=== PATIENT | male | born 1960 | race Caucasian/White ===

== ENCOUNTER 2016-09-02 14:25 | Inpatient (IN) | payer OTHER ==
[2016-09-02] VITALS (7 sets, daily range): BP systolic 171–196; BP diastolic 91–106; PULSE 77–90; RESP 18–20; TEMP 98.8–99.7; O2SAT 97–99
[~2016-09-02] VITALS: Ht 185.4 cm; Wt 88.2 kg
--- NOTE | 2016-09-02 14:36 | PD ---
Physical Exam Time Seen by Provider: 14:33 Narrative 55 y/o male presents with epigastric abdominal pain, nausea/vomiting for 2 days. He ate at [employer] last night and thought that he had food poisoning. He endorses slight left sided cp as well. seen by pcp today. He had an ekg and he was referred here. Denies sob. vss. Seen at triage desk. Awaiting bed placement. Data Data Last Documented VS Vital Signs Date Time Temp Pulse Resp B/P Pulse Ox O2 Delivery O2 Flow Rate FiO2 09/02/16 14:27 98.8 90 20 171/101 99 Room Air Orders Electrocardiogram (09/02/16 ) [facility] Medical Record Reviewed: Yes Supervised Visit with ANDERS: No Alan Choi September 02, 2016 14:36
--- NOTE | 2016-09-02 16:45 | PD ---
HPI Chief Complaint: Abnormal Results Time Seen by Provider: 16:45 Travel History International Travel<30 days: No Contact w/Intl Traveler<30days: No Traveled to known affect area: No History of Present Illness HPI 55-year-old male came to the emergency room with history of epigastric pain since 2 days. Patient has been vomiting. His last vomit was last night. Since then this morning he woke up and drank some kati bhumi and ate some breakfast although he is been unable to keep that down and has been constant nausea. No history of diarrhea. He pointed to his gastric area regarding the pain and right upper quadrant. Patient says he's never had pain like this in the past. Patient has been hypertensive and could be related to his pain. [facility] Past Medical History Narrative Medical List of his past medical, surgical, social and family history is reviewed from the nursing note. Diabetes: Yes Social History Tobacco Use: No Allergies-Medications (Allergen,Severity, Reaction): Coded Allergies: No Known Allergies (Unverified , 09/02/16) Comments No known drug allergies. Reported Meds & Prescriptions Reported Meds & Active Scripts Active Reported Omeprazole 40 Mg Cap 40 Mg PO DAILY Metformin (Metformin HCl) 500 Mg Tab 500 Mg PO BIDPC With meals Lisinopril 20 Mg Tab 20 Mg PO DAILY Amlodipine (Amlodipine Besylate) 5 Mg Tab 5 Mg PO DAILY Allopurinol 300 Mg Tab 300 Mg PO DAILY Narrative Medication List of his medications reviewed from the nursing note. Review of Systems Except as stated in HPI: all other systems reviewed are Neg Physical Exam Narrative GENERAL: Awake, alert, mild distress, anxious SKIN: Focused skin assessment warm/dry. HEAD: Atraumatic. Normocephalic. EYES: Pupils equal and round. No scleral icterus. No injection or drainage. ENT: No nasal bleeding or discharge. Mucous membranes pink and moist. NECK: Trachea midline. No JVD. CARDIOVASCULAR: Regular rate and rhythm. No murmur appreciated. RESPIRATORY: No accessory muscle use. Clear to auscultation. Breath sounds equal bilaterally. GASTROINTESTINAL: Right upper quadrant tenderness, nondistended. Hepatic and splenic margins not palpable. MUSCULOSKELETAL: No obvious deformities. No clubbing. No cyanosis. No edema. NEUROLOGICAL: Awake and alert. No obvious cranial nerve deficits. Motor grossly within normal limits. Normal speech. PSYCHIATRIC: Appropriate mood and affect; insight and judgment normal. Data Data Last Documented VS Vital Signs Date Time Temp Pulse Resp B/P Pulse Ox O2 Delivery O2 Flow Rate FiO2 09/02/16 18:49 80 18 189/91 99 Room Air 09/02/16 14:27 98.8 Orders Electrocardiogram (09/02/16 ) Complete Blood Count With Diff (09/02/16 16:52) Comprehensive Metabolic Panel (09/02/16 16:52) Lipase (09/02/16 16:52) Prothrombin Time / Inr (Pt) (09/02/16 16:52) Urinalysis - C+S If Indicated (09/02/16 16:52) Iv Access Insert/Monitor (09/02/16 16:52) Ecg Monitoring (09/02/16 16:52) Oximetry (09/02/16 16:52) Morphine Inj (Morphine Inj) (09/02/16 17:00) Ondansetron Inj (Zofran Inj) (09/02/16 17:00) Sodium Chlor 0.9% 1000 Ml Inj (Ns 1000 M (09/02/16 16:52) Sodium Chloride 0.9% Flush (Ns Flush) (09/02/16 17:00) Ed Poc Ultrasound (09/02/16 16:52) Troponin I (09/02/16 16:52) Us Abdomen Gallbladder (09/02/16 ) Piperacil-Tazo 3.375 Gm Premix (Zosyn 3. (09/02/16 19:15) Admit Order (Ed Use Only) (09/02/16 19:15) Allopurinol (Zyloprim) (09/03/16 09:00) Amlodipine (Norvasc) (09/03/16 09:00) Lisinopril (Prinivil) (09/03/16 09:00) Pantoprazole (Protonix) (09/03/16 09:00) Bedside Glucose SHAHEED.AC&HS (09/02/16 19:20) Blood Glucose Goal (Criteria) (09/02/16 19:20) Hypoglycemia 51 - 69 Mg/Dl (09/02/16 19:20) Hypoglycemia 50 Mg/Dl Or < (09/02/16 19:20) Notify Dr: Other (09/02/16 19:20) Dextrose 50% In Maria Antonia (Vial) Inj (D50w (Vi (09/02/16 19:30) Glucagon Inj (Glucagon Inj) (09/02/16 19:30) Insulin Aspart Supplemtl Scale (Novolog (09/02/16 21:00) Admit To Inpatient (09/02/16 ) Vital Signs (Adult) Q4H (09/02/16 19:22) Activity Oob With Assistance (09/02/16 19:22) Floor Sweeper / Telemetry .CONTINUOUS (09/02/16 19:22) Diet Npo (09/03/16 Breakfast) Sodium Chlor 0.9% 1000 Ml Inj (Ns 1000 M (09/02/16 19:22) Sodium Chloride 0.9% Flush (Ns Flush) (09/02/16 19:30) Sodium Chloride 0.9% Flush (Ns Flush) (09/02/16 21:00) Acetaminophen (Tylenol) (09/02/16 19:30) Ondansetron Inj (Zofran Inj) (09/02/16 19:30) Complete Blood Count With Diff (09/03/16 06:00) Creatine Kinase (Cpk) (09/02/16 19:22) Creatine Kinase (Cpk) (09/03/16 01:22) Troponin I (09/02/16 19:22) Troponin I (09/03/16 01:22) Heparin Inj (Heparin Inj) (09/02/16 20:00) Naloxone Inj (Narcan Inj) (09/02/16 19:30) Inpatient Certification (09/02/16 ) Labs Laboratory Tests Test 09/02/16 17:04 White Blood Count 8.8 TH/MM3 Red Blood Count 4.81 MIL/MM3 Hemoglobin 13.2 GM/DL Hematocrit 39.5 % Mean Corpuscular Volume 82.2 FL Mean Corpuscular Hemoglobin 27.5 PG Mean Corpuscular Hemoglobin 33.4 % Concent Red Cell Distribution Width 15.0 % Platelet Count 160 TH/MM3 Mean Platelet Volume 8.7 FL Neutrophils (%) (Auto) 83.9 % Lymphocytes (%) (Auto) 6.9 % Monocytes (%) (Auto) 8.9 % Eosinophils (%) (Auto) 0.2 % Basophils (%) (Auto) 0.1 % Neutrophils # (Auto) 7.4 TH/MM3 Lymphocytes # (Auto) 0.6 TH/MM3 Monocytes # (Auto) 0.8 TH/MM3 Eosinophils # (Auto) 0.0 TH/MM3 Basophils # (Auto) 0.0 TH/MM3 CBC Comment DIFF FINAL Differential Comment Prothrombin Time 10.3 SEC Prothromb Time International 0.9 RATIO Ratio Sodium Level 136 MEQ/L Potassium Level 3.7 MEQ/L Chloride Level 98 MEQ/L Carbon Dioxide Level 27.1 MEQ/L Anion Gap 11 MEQ/L Blood Urea Nitrogen 9 MG/DL Creatinine 0.88 MG/DL Estimat Glomerular Filtration 89 ML/MIN Rate Random Glucose 183 MG/DL Calcium Level 9.2 MG/DL Total Bilirubin 1.0 MG/DL Aspartate Amino Transf 189 U/L (AST/SGOT) Alanine Aminotransferase 465 U/L (ALT/SGPT) Alkaline Phosphatase 217 U/L Troponin I LESS THAN 0.02 NG/ML Total Protein 7.9 GM/DL Albumin 3.5 GM/DL Lipase 80 U/L MDM Medical Decision Making Medical Screen Exam Complete: Yes Emergency Medical Condition: Yes Medical Record Reviewed: Yes Interpretation(s) Twelve-lead EKG was reviewed by me. Normal sinus rhythm, incomplete right bundle branch block, left axis deviation, PVCs. Heart rate of 81 bpm. Differential Diagnosis Acute cholecystitis, acute pancreatitis, biliary colic, ACS Narrative Course 6:30 PM blood test results are back. WBC count is within normal limit but patient does have some left shift. LFTs are elevated. Awaiting for the official ultrasound to be done and resulted. If patient has cholecystitis and or CBD obstruction he'll need day admitted otherwise if his pain is well- controlled he can go home. I described this to the patient and his as well. He was medicated for pain and nausea. She was given a liter of IV fluid bolus. 7:05 PM ultrasound shows signs of cholecystitis with pericholecystic fluid and wall thickening. I put a call out for the hospitalist Procedures Procedure Narrative Emergency department right upper quadrant ultrasound was performed with patient consent. Curvilinear probe was used in the transverse and sagittal views within the right upper quadrant revealing gallbladder with positive without obvious wall thickening, cholecystic fluid, or cholelithiasis. EKG Prior to Arrival: No Diagnosis Primary Impression: Acute cholecystitis Additional Impression: Cholelithiasis Qualified Code: K80.01 - Calculus of gallbladder with acute cholecystitis and obstruction Admitting Information Admitting Physician Requests: Admit Bobby Flores MD September 02, 2016 16:45
[2016-09-02] MEDS ORDERED: SODIUM CHLOR 0.9% 1000 ML INJ 1,000 ML IV SCH (16:52)
[2016-09-02] MEDS ORDERED: OMEP40CA2 PO (16:56)
[2016-09-02] MEDS ORDERED: AMLO5TAB2 PO (16:56)
[2016-09-02] MEDS ORDERED: ALLO300T2 PO (16:56)
[2016-09-02] MEDS ORDERED: LISI-515 PO (16:56)
[2016-09-02] MEDS ORDERED: METF500T PO (16:56)
[2016-09-02] MEDS ORDERED: ONDANSETRON HCL 4 MG/2 ML VIAL IVP ONE (17:00)
[2016-09-02] MEDS ORDERED: MORPHINE SULFATE 4 MG/ML INJ IV PUSH ONE (17:00)
[2016-09-02] MEDS ORDERED: SODIUM CHLORIDE 0.9% FLUSH 10 ML FLUSH IV FLUSH PRN (17:00)
[2016-09-02 17:27] LABS: AUTOMATED NEUTROPHIL # 7.4 TH/MM3 (1.8-7.7); BASOPHIL % 0.1 % (0.0-2.0); EOSINOPHIL % 0.2 % (0.0-4.0); HEMATOCRIT 39.5 % (39.0-51.0); HEMO FLAGS DIFF FINAL; LYMPH % 6.9 % (9.0-44.0); LYMPHOCYTE # 0.6 TH/MM3 (1.0-4.8); MEAN CELL VOLUME 82.2 FL (80.0-100.0); MEAN CORPUSCULAR HEMOGLOBIN 27.5 PG (27.0-34.0); MEAN CORPUSCULAR HGB CONC 33.4 % (32.0-36.0); MONO % 8.9 % (0.0-8.0); NEUT % 83.9 % (16.0-70.0); PLATELET COUNT 160 TH/MM3 (150-450); RED BLOOD COUNT 4.81 MIL/MM3 (4.50-5.90); WHITE BLOOD COUNT 8.8 TH/MM3 (4.0-11.0)
[2016-09-02 17:29] LABS: INTERNATIONAL NORMALIZED RATIO 0.9 RATIO; PROTHROMBIN TIME - PATIENT 10.3 SEC (9.8-11.6)
[2016-09-02 17:50] LABS: ALT (GPT) 465 U/L (12-78); ANION GAP 11 MEQ/L (5-15); AST (GOT) 189 U/L (15-37); BICARBONATE 27.1 MEQ/L (21.0-32.0); BLOOD UREA NITROGEN 9 MG/DL (7-18); CHLORIDE 98 MEQ/L (98-107); GLOMERULAR FILTRATION RATE 89 ML/MIN (>89); POTASSIUM 3.7 MEQ/L (3.5-5.1); SODIUM (NA) 136 MEQ/L (136-145)
[2016-09-02 17:54] LABS: ALKALINE PHOSPHATASE 217 U/L (45-117)
--- NOTE | 2016-09-02 18:23 | EKG ---
Date Performed: 09/02/2016 Time Performed: 14:45:53 PTAGE: 55 years EKG: Sinus rhythm WITH OCCASIONAL VENTRICULAR PREMATURE COMPLEXES AXIS DEVIATION INCOMPLETE RIGHT BUNDLE BRANCH BLOCK ABNORMAL ECG NO PREVIOUS TRACING DOCTOR: Manuel Soliman Interpretating Date/Time 09/02/2016 18:20:52
--- NOTE | 2016-09-02 18:48 | RADRPT ---
EXAM DATE/TIME: 09/02/2016 18:07 [place] COMPARISON: No previous studies available for comparison. INDICATIONS : Nausea/vomiting. MEDICAL HISTORY : Hypertension. Diabetes. SURGICAL HISTORY : Appendectomy. Hernia repair x3. ENCOUNTER: Initial ACUITY: 2 days PAIN SCORE: 0/10 LOCATION: Right upper quadrant MEASUREMENTS: LIVER: 19.2 cm length COMMON DUCT: 8 mm RIGHT KIDNEY: 11.5 x 4.8 x 5.7 cm FINDINGS: LIVER: Mildly enlarged liver. No focal hepatic lesion. No intrahepatic biliary distention. There is normal f low velocity and direction in the main portal vein. COMMON DUCT: No intraluminal mass or stone visualized. GALLBLADDER: There is an 18 mm non-mobile stone at the gallbladder neck. Gallbladder wall is thickened, measures 5 mm. Trace pericholecystic fluid. PANCREAS: The visualized portions are within normal limits. RIGHT KIDNEY: No evidence of hydronephrosis, stone, or mass. CONCLUSION: 1. Large stone at the gallbladder neck appears impacted there. There is gallbladder wall thickening a nd trace pericholecystic fluid but no sonographic Martinez sign. 2. Distended common bile duct, exact etiology uncertain. I don't clearly see a ductal stone. 3. Nonspecific mild hepatomegaly. Robby Tavares MD on September 02, 2016 at 18:44 Board Certified Radiologist. This report was verified electronically.
[2016-09-02] MEDS ORDERED: PIPERACIL-TAZO 3.375 GM PREMIX 50 ML IV ONE (19:15)
[2016-09-02] MEDS ORDERED: ACETAMINOPHEN 325 MG TAB PO PRN (19:30)
[2016-09-02] MEDS ORDERED: GLUCAGON 1 MG/ML VIAL OTHER PRN (19:30)
[2016-09-02] MEDS ORDERED: NALOXONE HCL 0.4 MG/ML AMP IV PRN (19:30)
[2016-09-02] MEDS ORDERED: DEXTROSE 50% IN WATER 50 ML VIAL(D50) IV PUSH PRN (19:30)
[2016-09-02] MEDS: SODIUM CHLOR 0.9% 1000 ML INJ 1,000 ML IV SCH (19:42)
[2016-09-02] MEDS: HEPARIN SODIUM - SQ 10,000 UNITS/ML VIAL SQ SCH (19:51)
[2016-09-02] MEDS: INSULIN ASPART SUPPLEMENTAL SCALE SQ SCH (20:46)
[2016-09-02] MEDS: SODIUM CHLORIDE 0.9% FLUSH 10 ML FLUSH IV FLUSH SCH (20:46)
[2016-09-02] MEDS ORDERED: MORPHINE SULFATE 4 MG/ML INJ IV PRN (22:15)
[2016-09-02] MEDS: ONDANSETRON HCL 4 MG/2 ML VIAL IVP PRN (22:23)
[2016-09-02] MEDS: MORPHINE SULFATE 4 MG/ML INJ IV PRN (22:25)
[2016-09-02 23:44] LABS: CREATINE KINASE 51 U/L (39-308)
[2016-09-03] VITALS (7 sets, daily range): BP systolic 150–173; BP diastolic 75–93; PULSE 68–105; RESP 16–19; TEMP 98.6–99.9; O2SAT 95–99
[2016-09-03] MEDS: ONDANSETRON HCL 4 MG/2 ML VIAL IVP PRN ×2 (04:48→12:50)
[2016-09-03] MEDS: SODIUM CHLOR 0.9% 1000 ML INJ 1,000 ML IV SCH ×2 (04:51→18:07)
[2016-09-03] MEDS ORDERED: SODIUM CHLORID 0.9% 500 ML IV PRN (06:15)
[2016-09-03] MEDS ORDERED: CHLORHEXIDINE GLUCONATE 2 % 1 PACK (2 CLOTHS) TOPICAL PRN (06:15)
[2016-09-03] MEDS ORDERED: POVIDONE IODINE 5% (ANTISEPSIS KIT) 4 APPLICATIONS EACH NARE PRN (06:15)
[2016-09-03] MEDS ORDERED: LACTATED RINGER'S 1000 ML IV PRN (06:15)
[2016-09-03] MEDS: INSULIN ASPART SUPPLEMENTAL SCALE SQ SCH ×4 (06:19→21:20)
[2016-09-03] MEDS: MORPHINE SULFATE 4 MG/ML INJ IV PRN ×4 (06:20→21:23)
[2016-09-03 06:58] LABS: BASOPHIL % 0.4 % (0.0-2.0); EOSINOPHIL % 0.4 % (0.0-4.0); HEMATOCRIT 37.9 % (39.0-51.0); HEMO FLAGS DIFF FINAL; LYMPH % 9.5 % (9.0-44.0); LYMPHOCYTE # 0.8 TH/MM3 (1.0-4.8); MEAN CELL VOLUME 82.1 FL (80.0-100.0); MEAN CORPUSCULAR HEMOGLOBIN 27.2 PG (27.0-34.0); MEAN CORPUSCULAR HGB CONC 33.1 % (32.0-36.0); MONO % 10.1 % (0.0-8.0); NEUT % 79.6 % (16.0-70.0); PLATELET COUNT 143 TH/MM3 (150-450); RED BLOOD COUNT 4.61 MIL/MM3 (4.50-5.90); RED CELL DISTRIBUTION WIDTH 14.8 % (11.6-17.2); WHITE BLOOD COUNT 8.8 TH/MM3 (4.0-11.0)
[2016-09-03 07:29] LABS: ANION GAP 8 MEQ/L (5-15); BICARBONATE 26.6 MEQ/L (21.0-32.0); BLOOD UREA NITROGEN 6 MG/DL (7-18); CHLORIDE 101 MEQ/L (98-107); GLOMERULAR FILTRATION RATE 95 ML/MIN (>89); POTASSIUM 3.5 MEQ/L (3.5-5.1); SODIUM (NA) 136 MEQ/L (136-145)
[2016-09-03 07:37] LABS: CREATINE KINASE 47 U/L (39-308)
[2016-09-03] MEDS: HEPARIN SODIUM - SQ 10,000 UNITS/ML VIAL SQ SCH ×2 (08:00→20:00)
[2016-09-03] MEDS ORDERED: amLODIPine BESYLATE 5 MG TAB PO SCH (09:00)
[2016-09-03] MEDS: SODIUM CHLORIDE 0.9% FLUSH 10 ML FLUSH IV FLUSH SCH ×2 (09:00→21:00)
--- NOTE | 2016-09-03 09:13 | HHI.HP ---
[facility] Service [facility] Primary Care Physician Colten Nolan M.D. Admission Diagnosis acute cholecystitis, cholelithiasis Diagnoses: (Priscilla Mullen) Travel History International Travel<30 Days: No Contact w/Intl Traveler <30 Da: No Traveled to Known Affected Are: No (Priscilla Mullen) Past Family Social History Allergies: Coded Allergies: No Known Allergies (Unverified , 09/10/16) Physical Exam Vital Signs Vital Signs Date Time Temp Pulse Resp B/P Pulse Ox O2 Delivery O2 Flow Rate FiO2 09/03/16 08:12 99.4 84 16 167/93 99 09/03/16 07:25 Room Air 09/03/16 04:00 98.8 86 18 173/75 96 09/03/16 00:00 99.5 84 19 160/85 95 09/02/16 23:45 85 09/02/16 20:45 99.7 77 18 172/93 98 09/02/16 20:00 Room Air 09/02/16 18:49 80 18 189/91 99 Room Air 09/02/16 18:10 18 09/02/16 18:09 80 18 185/106 97 Room Air 09/02/16 17:22 84 18 194/100 99 Room Air 09/02/16 17:07 84 18 196/103 99 Room Air 09/02/16 17:07 80 18 196/103 98 Room Air 09/02/16 14:27 98.8 90 20 171/101 99 Room Air Laboratory Laboratory Tests Test 09/02/16 09/02/16 09/03/16 17:04 22:49 06:28 White Blood Count 8.8 8.8 Red Blood Count 4.81 4.61 Hemoglobin 13.2 12.5 Hematocrit 39.5 37.9 Mean Corpuscular Volume 82.2 82.1 Mean Corpuscular Hemoglobin 27.5 27.2 Mean Corpuscular Hemoglobin 33.4 33.1 Concent Red Cell Distribution Width 15.0 14.8 Platelet Count 160 143 Mean Platelet Volume 8.7 8.6 Neutrophils (%) (Auto) 83.9 79.6 Lymphocytes (%) (Auto) 6.9 9.5 Monocytes (%) (Auto) 8.9 10.1 Eosinophils (%) (Auto) 0.2 0.4 Basophils (%) (Auto) 0.1 0.4 Neutrophils # (Auto) 7.4 7.0 Lymphocytes # (Auto) 0.6 0.8 Monocytes # (Auto) 0.8 0.9 Eosinophils # (Auto) 0.0 0.0 Basophils # (Auto) 0.0 0.0 CBC Comment DIFF FINAL DIFF FINAL Differential Comment Prothrombin Time 10.3 Prothromb Time International 0.9 Ratio Sodium Level 136 136 Potassium Level 3.7 3.5 Chloride Level 98 101 Carbon Dioxide Level 27.1 26.6 Anion Gap 11 8 Blood Urea Nitrogen 9 6 Creatinine 0.88 0.83 Estimat Glomerular Filtration 89 95 Rate Random Glucose 183 181 Calcium Level 9.2 8.6 Total Bilirubin 1.0 Aspartate Amino Transf 189 (AST/SGOT) Alanine Aminotransferase 465 (ALT/SGPT) Alkaline Phosphatase 217 Troponin I LESS THAN 0.02 LESS THAN 0.02 LESS THAN 0.02 Total Protein 7.9 Albumin 3.5 Lipase 80 Total Creatine Kinase 51 47 (Priscilla Mullen) Result Diagram: 09/03/1662709/03/16627 Assessment and Plan Assessment and Plan general surgery consult done dictated, [id number] Discussed With: Other (dr. nguyễn, seen on his behalf) (Priscilla Mullen) Code Status pt is seen & examined d/w PT d/w Priscilla gen surgery input appreciated cont IV abx Transaminitis ?? etiology , check hep panel also' f/u LFT (Jennifer Nguyễn MD) Physician Certification 2 Midnight Certification Type: Admission for Inpatient Services Order for Inpatient Services The services are ordered in accordance with Medicare regulations or non- Medicare payer requirements, as applicable. In the case of services not specified as inpatient-only, they are appropriately provided as inpatient services in accordance with the 2-midnight benchmark. Estimated LOS (days): 5 5 days is the estimated time the patient will need to remain in the hospital, assuming treatment plan goals are met and no additional complications. Post-Hospital Plan: Not yet determined (Priscilla Mullen) Priscilla Mullen September 03, 2016 09:13 Jennifer Nguyễn MD September 03, 2016 13:23
--- NOTE | 2016-09-03 09:40 | MH ---
cc: AMERICA NGUYỄN MD DATE OF ADMISSION: 09/02/2016 DATE OF : 1960 TRAVEL IN THE LAST 30 DAYS None. HISTORY OF PRESENT ILLNESS This is a pleasant 55-year-old white male who had been in his usual state of health up until Friday. The patient states that he initially thought he had food poisoning from the [place] due to acute onset of nausea and vomiting. He states that he has vomited for the past two days and has continued to have right upper quadrant epigastric pain. The patient tried to drink some kati bhumi and eat breakfast the day of admission but was unable to keep anything down. The patient denies any diarrhea or constipation. Denies any headache. Denies any chest pain. No shortness of breath. No recent change in diet or activity. The patient denies any previous history of gallbladder disease or pain. He does note that he had a work-up on his heart back several years ago but they found no coronary artery disease. Currently the patient is alert, oriented, resting in the bed, still having mild right upper quadrant epigastric pain. No further nausea or vomiting during the a.m. PAST MEDICAL HISTORY 1. Hypertension. 2. GERD. 3. Gout. 4. Diabetes type 2, for which the patient takes metformin, diagnosed approximately a year and half ago. PAST SURGICAL HISTORY None. ALLERGIES No known. MEDICATIONS Reported medications: 1. Omeprazole. 2. Metformin. 3. Lisinopril. 4. Amlodipine. 5. Allopurinol. SOCIAL HISTORY The patient has a fiancee, currently lives with her in his own home. Denies any tobacco use ever. Social alcohol with a few beers weekly. No illicit drugs. FAMILY HISTORY Diabetes, heart disease, hypertension and CVA. REVIEW OF SYSTEMS A 12-point review was done. Positives noted in the HPI which chiefly include his right upper quadrant epigastric pain, nausea, vomiting, unable to keep any food down for the past two days. Otherwise systems are negative or unremarkable. PHYSICAL EXAMINATION VITAL SIGNS: Temperature 99.4, pulse 84, respirations 16, blood pressure 167/93. Originally in the emergency room the patient had a blood pressure of 172/93. GENERAL: A well-nourished, well-developed white male who looks to be his stated age resting in the bed, answering questions appropriately. His fiancee is at his side. HEENT: Atraumatic, normocephalic. PERRLA at 2 mm. No scleral icterus. No drainage. Mucous membranes are pink and moist. Tongue is midline. NECK: Trachea is midline. Neck is supple. CARDIOVASCULAR: S1, S2. No murmurs, rubs or gallops. He has no edema and his pulses are intact. LUNGS: Essentially clear anteriorly and posteriorly with no wheezes, rales or rhonchi. ABDOMEN: Upper right quadrant epigastric tenderness. Nondistended. No margins palpable. Bowel sounds are active. EXTREMITIES: Moves all extremities with purpose. No obvious deformities. No edema. NEUROLOGIC: Alert and oriented. Speech is clear. No acute cranial nerve deficits. PSYCHIATRIC: Appropriate mood and affect. Insight and judgment is normal. LABORATORY WBC count 8.8, RBC 4.61, hemoglobin 12.5, originally 13.2 in the ER, hematocrit 37.9, platelet count originally 160 in the ER now 143, neutrophil count 79.6, monocyte count 10.1. INR is 0.9. Sodium 136, potassium 3.5, chloride 101, carbon dioxide 26.6, BUN 6, creatinine 0.83, GFR 95, glucose 181, calcium 8.6, total creatinine kinase 47, troponin less than 0.03 x3, lipase 80, albumin 3.5, total protein 7.9. IMAGING Gallbladder ultrasound shows a large stone at the gallbladder neck, appears impacted. There is a gallbladder wall thickening, trace pericholecystic fluid but no Martinez's sign. Distended common bile duct, exact etiology uncertain. There is not a ductal stone seen. Nonspecific mild hepatomegaly. ASSESSMENT 1. Acute cholecystitis and obstruction. 2. Gastroesophageal reflux disease. 3. Diabetes type 2. 4. Hypertension. 5. Gout. 6. Social ETOH dependence. PLAN 1. Admit inpatient status. 2. Vital signs will be monitored q.4h. The patient is noted to have some systolic hypertension. This could be secondary to his pain but it has been fairly steady and elevated since admission. Will increase his Norvasc dose and monitor for now. 3. Activity will be out of bed only with assistance. 4. The patient is currently n.p.o., gentle hydration with IV fluids. 5. PRN medications for pain and nausea. 6. DVT prophylaxis with heparin. 7. PUD prophylaxis with Protonix. 8. Will monitor his Accu-Cheks with sliding scale. 9. The plan of care has been discussed with Dr. Rosario. We will follow his course of treatment. Dictated by: OLY Arreaga America Nguyễn MD MNA/BT /9:02 AM /9:22 AM pt is seen & examined d/w PT d/w Priscilla gen surgery input appreciated cont IV abx Transaminitis ?? etiology , check hep panel also' f/u LFT (America Nguyễn MD) Physician Certification 2 Midnight Certification Type: Admission for Inpatient Services Order for Inpatient Services The services are ordered in accordance with Medicare regulations or non- Medicare payer requirements, as applicable. In the case of services not specified as inpatient-only, they are appropriately provided as inpatient services in accordance with the 2-midnight benchmark. days is the estimated time the patient will need to remain in the hospital, assuming treatment plan goals are met and no additional complications. (Priscilla Mullen) Priscilla Mullen September 03, 2016 09:13 America Nguyễn MD September 03, 2016 13:23 [facility]
[2016-09-03] MEDS: ALLOPURINOL 300 MG TAB PO SCH (10:17)
[2016-09-03] MEDS: PANTOPRAZOLE SOD 40 MG DELAYED RELEASE TAB PO SCH (10:17)
[2016-09-03] MEDS: LISINOPRIL 20 MG TAB PO SCH (10:17)
--- NOTE | 2016-09-03 11:44 | PD.CONS ---
cc: Jacky Pierson MD HPI Service General Surgery Consult Requested By Priscilla ALDRIDGE Reason for Consult Acute cholecystitis Primary Care Physician Colten Nolan M.D. History of Present Illness This is a 55 year old male with a past medical history of hypertension, GERD, gout, and diabetes mellitus, who was in his usual state of health until Friday evening when he developed RUQ and epigastric pain with associated nausea and vomiting. The pain is a 8/10, currently 5/10, sharp, dull ache. better with sitting still worse with movement. That evening he ate at the [employer] with his family and thought he might have food positioning. No one else has any similar symptoms. He went to an Urgent Care yesterday after symptoms did not seem to improve and it was recommended he come to the hospital. An ultrasound was done which showed a large gallstone in the neck of the gallbladder with pericholecystic fluid and gallbladder wall thickening. He has a normal WBC and elevated liver enzymes. The pain is relieved by IV morphine. A General Surgery consultation has been requested for evaluation of cholelithiasis. Review of Systems Constitutional: DENIES: Fever, Weight gain, Weight loss, Chills Endocrine: DENIES: Polydipsia, Polyuria, Polyphagia Eyes: DENIES: Diplopia, Eye inflammation Ears, nose, mouth, throat: DENIES: Hearing loss, Vertigo, Nasal discharge Respiratory: DENIES: Apneas, Cough Cardiovascular: DENIES: Chest pain Gastrointestinal: COMPLAINS OF: Abdominal pain (RUQ and epigastric pain ), Nausea, Vomiting Genitourinary: DENIES: Urinary frequency, Urinary incontinence Musculoskeletal: DENIES: Joint pain Integumentary: DENIES: Abnormal pigmentation Hematologic/lymphatic: DENIES: Bruising Neurologic: DENIES: Headache Psychiatric: DENIES: Mood changes, Depression, Hallucinations Past Family Social History Past Medical History Hypertension Gout GERD Diabetes mellitus Past Surgical History Open appendectomy in the 1970s Umbilical hernia repair Open Right inguinal hernia repair Reported Medications Omeprazole Metformin Lisinopril Amlodipine Allopurinol Allergies: Coded Allergies: No Known Allergies (Unverified , 09/10/16) Active Ordered Medications Current Medications Medications (Trade) Dose Ordered Sig/Cezar Route Start Time Stop Time Status Last Admin (Zyloprim) 300 mg DAILY PO 09/03/16 09:00 09/03/16 10:17 (Prinivil) 20 mg DAILY PO 09/03/16 09:00 09/03/16 10:17 (Protonix) 40 mg DAILY PO 09/03/16 09:00 09/03/16 10:17 (D50w (Vial) Inj) 25 ml UNSCH PRN IV PUSH 09/02/16 19:30 Glucagon 1 mg 1 mg UNSCH PRN OTHER 09/02/16 19:30 (NS 1000 ml Inj) 1,000 ml @ 100 mls/hr Q10H IV 09/02/16 19:22 09/03/16 04:51 (NS Flush) 2 ml UNSCH PRN IV FLUSH 09/02/16 19:30 (NS Flush) 2 ml BID IV FLUSH 09/02/16 21:00 (Tylenol) 650 mg Q4H PRN PO 09/02/16 19:30 (Zofran Inj) 4 mg Q6H PRN IVP 09/02/16 19:30 09/03/16 04:48 (Heparin Inj) 5,000 units Q12H SQ 09/02/16 20:00 09/02/16 19:51 (Narcan Inj) 0.4 mg UNSCH PRN IV 09/02/16 19:30 (Morphine Inj) 4 mg Q3H PRN IV 09/02/16 22:15 09/03/16 10:18 Morphine Sulfate 2 mg 2 mg Q3H PRN IV 09/02/16 22:15 Lactated Ringer's 1,000 ml @ 30 mls/hr Q24H PRN IV 09/03/16 06:15 09/06/16 06:14 (NS 500 ml Inj) 500 ml @ 30 mls/hr [id number] PRN IV 09/03/16 06:15 09/06/16 06:14 (Norvasc) 10 mg DAILY PO 09/03/16 09:00 09/03/16 10:17 Family History Reports no family history of gallbladder issues Social History Denies tobacco use Positive EtOH use--- social drinker; not daily Denies illicit drug use Physical Exam Vital Signs Vital Signs Date Time Temp Pulse Resp B/P Pulse Ox O2 Delivery O2 Flow Rate FiO2 09/03/16 08:12 99.4 84 16 167/93 99 09/03/16 07:25 Room Air 09/03/16 04:00 98.8 86 18 173/75 96 09/03/16 00:00 99.5 84 19 160/85 95 09/02/16 23:45 85 09/02/16 20:45 99.7 77 18 172/93 98 09/02/16 20:00 Room Air 09/02/16 18:49 80 18 189/91 99 Room Air 09/02/16 18:10 18 09/02/16 18:09 80 18 185/106 97 Room Air 09/02/16 17:22 84 18 194/100 99 Room Air 09/02/16 17:07 84 18 196/103 99 Room Air 09/02/16 17:07 80 18 196/103 98 Room Air 09/02/16 14:27 98.8 90 20 171/101 99 Room Air Physical Exam GENERAL: Pleasant 55 year old male resting in bed in [facility]. SKIN: Warm and dry. HEAD: Atraumatic. Normocephalic. EYES: Pupils equal and round. No scleral icterus. No injection or drainage. ENT: No nasal bleeding or discharge. Mucous membranes pink and moist. NECK: Trachea midline. CARDIOVASCULAR: Regular rate and rhythm. RESPIRATORY: No accessory muscle use. Clear to auscultation. Breath sounds equal bilaterally. GASTROINTESTINAL: Abdomen soft, RUQ tenderness with palpation. MUSCULOSKELETAL: Extremities without clubbing, cyanosis, or edema. No obvious deformities. NEUROLOGICAL: Awake and alert. No obvious cranial nerve deficits. Motor grossly within normal limits. Five out of 5 muscle strength in the arms and legs. Normal speech. PSYCHIATRIC: Appropriate mood and affect; insight and judgment normal. Laboratory Laboratory Tests Test 09/02/16 09/02/16 09/03/16 17:04 22:49 06:28 White Blood Count 8.8 8.8 Red Blood Count 4.81 4.61 Hemoglobin 13.2 12.5 Hematocrit 39.5 37.9 Mean Corpuscular Volume 82.2 82.1 Mean Corpuscular Hemoglobin 27.5 27.2 Mean Corpuscular Hemoglobin 33.4 33.1 Concent Red Cell Distribution Width 15.0 14.8 Platelet Count 160 143 Mean Platelet Volume 8.7 8.6 Neutrophils (%) (Auto) 83.9 79.6 Lymphocytes (%) (Auto) 6.9 9.5 Monocytes (%) (Auto) 8.9 10.1 Eosinophils (%) (Auto) 0.2 0.4 Basophils (%) (Auto) 0.1 0.4 Neutrophils # (Auto) 7.4 7.0 Lymphocytes # (Auto) 0.6 0.8 Monocytes # (Auto) 0.8 0.9 Eosinophils # (Auto) 0.0 0.0 Basophils # (Auto) 0.0 0.0 CBC Comment DIFF FINAL DIFF FINAL Differential Comment Prothrombin Time 10.3 Prothromb Time International 0.9 Ratio Sodium Level 136 136 Potassium Level 3.7 3.5 Chloride Level 98 101 Carbon Dioxide Level 27.1 26.6 Anion Gap 11 8 Blood Urea Nitrogen 9 6 Creatinine 0.88 0.83 Estimat Glomerular Filtration 89 95 Rate Random Glucose 183 181 Calcium Level 9.2 8.6 Total Bilirubin 1.0 Aspartate Amino Transf 189 (AST/SGOT) Alanine Aminotransferase 465 (ALT/SGPT) Alkaline Phosphatase 217 Troponin I LESS THAN 0.02 LESS THAN 0.02 LESS THAN 0.02 Total Protein 7.9 Albumin 3.5 Lipase 80 Total Creatine Kinase 51 47 Result Diagram: 09/06/16 0637 09/06/16 1312 Imaging Last 48 hours Impressions Gall Bladder Ultrasound 09/02/16 0000 Signed Impressions: Service Date/Time: Friday, September 02, 2016 18:07 - CONCLUSION: 1. Large stone at the gallbladder neck appears impacted there. There is gallbladder wall thickening and trace pericholecystic fluid but no sonographic Martinez sign. 2. Distended common bile duct, exact etiology uncertain. I don't clearly see a ductal stone. 3. Nonspecific mild hepatomegaly. Robby Tavares MD Assessment and Plan Assessment and Plan 55 year old male with RUQ pain and cholelithiasis -Obtain liver enzymes for today -Reviewed US with Dr. Pierson -Pre-op antibiotics ordered -Consents on chart -Plan for lap cady either this afternoon or tomorrow---depending on availability of OR and liver enzymes -Procedure explained to patient and family---all questions answered; reviewed risks and benefits of procedure Discussed Condition With Dr. Pierson Artemio Roberto and family Attending Statement patient seen at bedside obtain enzymes and lfts if elevated then will obtain mrcp and gi eval if normal then precede with lap cady discussed with patient in detail Attestation The exam, history, and the medical decision-making described in the above note were completed with the assistance of the mid-level provider. I reviewed and agree with the findings presented. I attest that I had a [id number] encounter with the patient on the same day, and personally performed and documented my assessment and findings in the medical record. Kizzy Moody September 03, 2016 11:44 Jacky Pierson MD September 10, 2016 22:27
[2016-09-03 12:15] LABS: AST (GOT) 139 U/L (15-37)
[2016-09-03 12:22] LABS: ALKALINE PHOSPHATASE 195 U/L (45-117); ALT (GPT) 343 U/L (12-78); TOTAL BILIRUBIN ADULT 2.1 MG/DL (0.2-1.0)
--- NOTE | 2016-09-03 14:46 | RADRPT ---
EXAM DATE/TIME: 09/03/2016 13:50 [place] COMPARISON: US ABDOMEN - GALLBLADDER, September 02, 2016, 18:07. INDICATIONS : Cholelithiasis. MEDICAL HISTORY : Diabetes mellitus type 2. Hypertension. SURGICAL HISTORY : Inguinal hernia repair. Appendectomy. ENCOUNTER: Initial ACUITY: 2 day PAIN SCORE: 3/10 LOCATION: Abdomen. TECHNIQUE: Multiplanar, multisequence magnetic resonance imaging of the abdomen was performed. High-resolution 3D dataset was utilized to reconstruct maximum-intensity projection (MIP) images. FINDINGS: INTRAHEPATIC BILE DUCTS: Within normal limits. No significant anatomical variant is present. EXTRAHEPATIC BILE DUCTS: The common bile duct is notable for at least one filling defect in its midportion consistent with sto ne. The duct diameter is about 7 mm and the stone is about 6 mm in size. GALLBLADDER: Slightly greater than 2 cm stone in the gallbladder neck. There is moderate gallbladder wall thickeni ng and some indurative changes adjacent to the gallbladder. LIVER: There is a single nonspecific T2 hyperintense lesion in the dome of the right lobe of the liver measu ring 1 cm in size. PANCREAS: The main pancreatic duct is normal in size. There is no significant anatomical variant. Signal inte nsity is within normal limits. No mass is visualized on this non-contrast exam. OTHER: The remaining visualized structures demonstrate no acute abnormality on this non-contrast exam. CONCLUSION: Gallstone with gallbladder wall thickening and surrounding inflammatory changes. At least one common duct stone. Nonspecific T2 hyperintense lesion in the dome of the liver warrants followup and further evaluation, ideally with multiphase contrasted MRI. This can be accomplished on an elective basis. Robby Barajas MD on September 03, 2016 at 14:35 Board Certified Radiologist. This report was verified electronically.
--- NOTE | 2016-09-03 15:49 | PD.CONS ---
HPI History of Present Illness This is a 55 year old male who came to the ER for evaluation of nausea, vomiting , abdominal pain. His symptoms began Friday night after eating at the [employer]. He started having nausea and vomiting with bilious material, but no hematemesis. He had several episodes of this and then developed a epigastric pain that radiated to his right side under his ribcage. He describes this as a sharp constant pain. He tried to eat a little here and there, but states that whenever he tried to eat, he would have more nausea/vomiting and that the pain was gradually worsening. He denies any fever, chills, diarrhea, melena. He came to the ER for further evaluation. Gall Bladder Ultrasound (09/02/16)----> 1. Large stone at the gallbladder neck appears impacted there. There is gallbladder wall thickening and trace pericholecystic fluid but no sonographic Martinez sign. 2. Distended common bile duct, exact etiology uncertain. I don't clearly see a ductal stone. 3. Nonspecific mild hepatomegaly. He was seen by GS and the plan was originally for a laparoscopic cholecystectomy today, but was found to have an increase in his T. Bilirubin this am. MRCP (09/03/16)-----> revealed gallstone with gallbladder wall thickening and surrounding inflammatory changes. At least one common duct stone. Nonspecific T2 hyperintense lesion in the dome of the liver warrants followup and further evaluation, ideally with multiphase contrasted MRI. This can be accomplished on an elective basis. GI was consulted for further evaluation and treatment with ERCP. (Fouzia Gagnon) PFSH Past Medical History Hypertension GERD Gout DM Past Surgical History EGD Appendectomy 3 hernia repairs (Fouzia Gagnon) Coded Allergies: No Known Allergies (Unverified , 09/02/16) Medications Allergies Coded Allergies Type Severity Reaction Last Updated Verified No Known Allergies 09/02/16 No Active Scripts Medications Dose Route/Sig Days Date Category Dose Instructions Omeprazole 40 Mg Cap 40 Mg PO DAILY 09/02/16 Reported Metformin (Metformin HCl) 500 Mg Tab 500 Mg PO BIDPC 09/02/16 Reported With meals Lisinopril 20 Mg Tab 20 Mg PO DAILY 09/02/16 Reported Amlodipine (Amlodipine Besylate) 5 Mg Tab 5 Mg PO DAILY 09/02/16 Reported Allopurinol 300 Mg Tab 300 Mg PO DAILY 09/02/16 Reported Family History Mother had heart disease and DM. Social History No use of tobacco or illicit drug use. Drinks 1-2 beers per day. (Fouzia Gagnon) Review of Systems Constitutional: DENIES: Fatigue, Fever, Weight loss, Chills Respiratory: DENIES: Cough Cardiovascular: DENIES: Chest pain Gastrointestinal: COMPLAINS OF: Abdominal pain, Nausea, Vomiting, Heartburn, DENIES: Black stools, Bloody stools, Constipation, Diarrhea Musculoskeletal: COMPLAINS OF: Joint pain Hematologic/lymphatic: DENIES: Bruising Neurologic: DENIES: Headache Psychiatric: DENIES: Confusion (Fouzia Gagnon) GI Exam Vitals I&O Vital Signs Date Time Temp Pulse Resp B/P Pulse Ox O2 Delivery O2 Flow Rate FiO2 09/03/16 12:08 99.9 68 16 163/91 96 09/03/16 08:12 99.4 84 16 167/93 99 09/03/16 07:25 Room Air 09/03/16 04:00 98.8 86 18 173/75 96 09/03/16 00:00 99.5 84 19 160/85 95 09/02/16 23:45 85 09/02/16 20:45 99.7 77 18 172/93 98 09/02/16 20:00 Room Air 09/02/16 18:49 80 18 189/91 99 Room Air 09/02/16 18:10 18 09/02/16 18:09 80 18 185/106 97 Room Air 09/02/16 17:22 84 18 194/100 99 Room Air 09/02/16 17:07 84 18 196/103 99 Room Air 09/02/16 17:07 80 18 196/103 98 Room Air I/O 09/02/16 09/02/16 09/02/16 09/03/16 09/03/16 09/03/16 07:00 15:00 23:00 07:00 15:00 23:00 Intake Total 0 ml 972 ml 708 ml Balance 0 ml 972 ml 708 ml Intake Oral 0 ml 0 ml IV Total 972 ml 708 ml # Voids 1 1 # Bowel Movements 0 0 Imaging Last Impressions Cholangiopancreatography MRI 09/03/16 0000 Signed Impressions: Service Date/Time: Saturday, September 03, 2016 13:50 - CONCLUSION: Gallstone with gallbladder wall thickening and surrounding inflammatory changes. At least one common duct stone. Nonspecific T2 hyperintense lesion in the dome of the liver warrants followup and further evaluation, ideally with multiphase contrasted MRI. This can be accomplished on an elective basis. Robby Barajas MD Gall Bladder Ultrasound 09/02/16 0000 Signed Impressions: Service Date/Time: Friday, September 02, 2016 18:07 - CONCLUSION: 1. Large stone at the gallbladder neck appears impacted there. There is gallbladder wall thickening and trace pericholecystic fluid but no sonographic Martinez sign. 2. Distended common bile duct, exact etiology uncertain. I don't clearly see a ductal stone. 3. Nonspecific mild hepatomegaly. Robby Tavares MD Laboratory Test 09/02/16 09/02/16 09/03/16 17:04 22:49 06:28 White Blood Count 8.8 TH/MM3 8.8 TH/MM3 Red Blood Count 4.81 MIL/MM3 4.61 MIL/MM3 Hemoglobin 13.2 GM/DL 12.5 GM/DL Hematocrit 39.5 % 37.9 % Mean Corpuscular Volume 82.2 FL 82.1 FL Mean Corpuscular Hemoglobin 27.5 PG 27.2 PG Mean Corpuscular Hemoglobin 33.4 % 33.1 % Concent Red Cell Distribution Width 15.0 % 14.8 % Platelet Count 160 TH/MM3 143 TH/MM3 Mean Platelet Volume 8.7 FL 8.6 FL Neutrophils (%) (Auto) 83.9 % 79.6 % Lymphocytes (%) (Auto) 6.9 % 9.5 % Monocytes (%) (Auto) 8.9 % 10.1 % Eosinophils (%) (Auto) 0.2 % 0.4 % Basophils (%) (Auto) 0.1 % 0.4 % Neutrophils # (Auto) 7.4 TH/MM3 7.0 TH/MM3 Lymphocytes # (Auto) 0.6 TH/MM3 0.8 TH/MM3 Monocytes # (Auto) 0.8 TH/MM3 0.9 TH/MM3 Eosinophils # (Auto) 0.0 TH/MM3 0.0 TH/MM3 Basophils # (Auto) 0.0 TH/MM3 0.0 TH/MM3 CBC Comment DIFF FINAL DIFF FINAL Differential Comment Prothrombin Time 10.3 SEC Prothromb Time International 0.9 RATIO Ratio Sodium Level 136 MEQ/L 136 MEQ/L Potassium Level 3.7 MEQ/L 3.5 MEQ/L Chloride Level 98 MEQ/L 101 MEQ/L Carbon Dioxide Level 27.1 MEQ/L 26.6 MEQ/L Anion Gap 11 MEQ/L 8 MEQ/L Blood Urea Nitrogen 9 MG/DL 6 MG/DL Creatinine 0.88 MG/DL 0.83 MG/DL Estimat Glomerular Filtration 89 ML/MIN 95 ML/MIN Rate Random Glucose 183 MG/DL 181 MG/DL Calcium Level 9.2 MG/DL 8.6 MG/DL Total Bilirubin 1.0 MG/DL 2.1 MG/DL Aspartate Amino Transf 189 U/L 139 U/L (AST/SGOT) Alanine Aminotransferase 465 U/L 343 U/L (ALT/SGPT) Alkaline Phosphatase 217 U/L 195 U/L Troponin I LESS THAN 0.02 LESS THAN 0.02 LESS THAN 0.02 NG/ML NG/ML NG/ML Total Protein 7.9 GM/DL 7.1 GM/DL Albumin 3.5 GM/DL 3.0 GM/DL Lipase 80 U/L Total Creatine Kinase 51 U/L 47 U/L Physical Examination HEENT: Normocephalic; atraumatic; no jaundice. CHEST: CTA CARDIAC: RRR ABDOMEN: Soft, nondistended, RUQ tenderness; no hepatosplenomegaly; bowel sounds are present in all four quadrants. EXTREMITIES: No clubbing, cyanosis, or edema. SKIN: Normal; no rash; no jaundice. TERRITORY ACCOUNT REPRESENTATIVE: No focal deficits; alert and oriented times three. (Fouzia Gagnon [facility]) Assessment and Plan Plan ASSESSMENT: - Choledocholithiasis, elevated LFTs. Gall Bladder Ultrasound (09/02/16)----> 1. Large stone at the gallbladder neck appears impacted there. There is gallbladder wall thickening and trace pericholecystic fluid but no sonographic Martinez sign. 2. Distended common bile duct, exact etiology uncertain. I don't clearly see a ductal stone. 3. Nonspecific mild hepatomegaly. Had increase in Bilirubin today. MRCP (09/03/16)-----> revealed gallstone with gallbladder wall thickening and surrounding inflammatory changes. At least one common duct stone. Nonspecific T2 hyperintense lesion in the dome of the liver warrants followup and further evaluation, ideally with multiphase contrasted MRI. This can be accomplished on an elective basis. T. Bili 2.1, AST 139, ALT 343, Alk Phosph 195. Will plan for ERCP with possible sphincterotomy, possible stent placement in am. - Cholelithiasis, RUQ pain. [facility] following, plan was for lap. cady, but then found to have increasing bilirubin and CBD stone on MRCP. GI consulted for ERCP first. - Nonspecific liver lesion on MRCP (noncontrasted), recommend multiphase contrasted MRI outpatient. Will get AFP. - GERD. PPI - DM, Gout, HTN per primary PLAN: - Plan for ERCP with possible sphincterotomy, possible stent placement in am - Obtain consents - Clear liquids - NPO after MN - PPI - IVF - Monitor labs - Supportive care - Further recommendations to follow based on results of above - PT seen and examined by Dr. Hi and myself and this note is written on his behalf (Fouzia aGgnon) Physician Comments Seen and examined with OYL, ercp planned for tomorrow. Discussed withpt. and family. Thank you (Jose Hi MD) Fouzia Gagnon September 03, 2016 15:48 Jose Hi MD September 03, 2016 18:50
[2016-09-04] VITALS (9 sets, daily range): BP systolic 94–158; BP diastolic 59–77; PULSE 95–116; RESP 16–18; TEMP 98.5–100.7; O2SAT 94–98
[2016-09-04] MEDS: MORPHINE SULFATE 4 MG/ML INJ IV PRN ×2 (00:48→04:37)
[2016-09-04] MEDS: SODIUM CHLOR 0.9% 1000 ML INJ 1,000 ML IV SCH ×3 (01:22→20:44)
[2016-09-04] MEDS ORDERED: LACTATED RINGER'S 1000 ML IV PRN (04:00)
[2016-09-04] MEDS ORDERED: POVIDONE IODINE 5% (ANTISEPSIS KIT) 4 APPLICATIONS EACH NARE PRN (04:00)
[2016-09-04] MEDS ORDERED: CHLORHEXIDINE GLUCONATE 2 % 1 PACK (2 CLOTHS) TOPICAL PRN (04:00)
[2016-09-04] MEDS ORDERED: SODIUM CHLORID 0.9% 500 ML IV PRN (04:00)
[2016-09-04 05:59] LABS: AUTOMATED NEUTROPHIL # 3.4 TH/MM3 (1.8-7.7); BASOPHIL % 0.2 % (0.0-2.0); EOSINOPHIL % 0.1 % (0.0-4.0); HEMATOCRIT 38.6 % (39.0-51.0); HEMO FLAGS DIFF FINAL; LYMPH % 6.7 % (9.0-44.0); LYMPHOCYTE # 0.3 TH/MM3 (1.0-4.8); MEAN CELL VOLUME 83.7 FL (80.0-100.0); MEAN CORPUSCULAR HGB CONC 32.3 % (32.0-36.0); PLATELET COUNT 113 TH/MM3 (150-450); RED BLOOD COUNT 4.61 MIL/MM3 (4.50-5.90); RED CELL DISTRIBUTION WIDTH 14.6 % (11.6-17.2); WHITE BLOOD COUNT 3.7 TH/MM3 (4.0-11.0)
[2016-09-04] MEDS: INSULIN ASPART SUPPLEMENTAL SCALE SQ SCH ×4 (06:11→20:44)
[2016-09-04 06:17] LABS: INDIRECT BILIRUBIN 2.1 MG/DL (0.0-0.8); TOTAL BILIRUBIN ADULT 3.5 MG/DL (0.2-1.0)
[2016-09-04] MEDS: HEPARIN SODIUM - SQ 10,000 UNITS/ML VIAL SQ SCH ×2 (08:00→20:00)
[2016-09-04] MEDS: PANTOPRAZOLE SOD 40 MG DELAYED RELEASE TAB PO SCH (09:00)
[2016-09-04] MEDS: LISINOPRIL 20 MG TAB PO SCH (09:00)
[2016-09-04] MEDS: ALLOPURINOL 300 MG TAB PO SCH (09:00)
[2016-09-04] MEDS: SODIUM CHLORIDE 0.9% FLUSH 10 ML FLUSH IV FLUSH SCH ×2 (09:00→20:33)
[2016-09-04] MEDS ORDERED: fentaNYL CITRATE 250 MCG/5 ML AMP ONE (09:47)
[2016-09-04] MEDS ORDERED: PROPOFOL 200 MG/20 ML AMP IV ONE (10:07)
[2016-09-04] MEDS ORDERED: IOHEXOL 350 MG/ML 100 ML BTL (for RAD DIAG) OTHER ONE (10:13)
--- NOTE | 2016-09-04 10:38 | GIPROC ---
[facility] [address] [facility]. [facility], [address] ERCP PROCEDURE REPORT EXAM DATE: 09/04/2016 PATIENT NAME: Cameron Roberto MR #: [id number] BIRTHDATE: 1960 ATTENDING: Jose Hi MD ORDER #: [id number] HAMMER RUNNER: Sanchez Trent Glinsky, Jason, and Kenan Sun STATUS: inpatient INDICATIONS: The patient is a 55 yr old male here for an ERCP due to abdominal pain of suspected biliary origin, abnormal abdominal CT, and established bile duct stone(s) PROCEDURE PERFORMED: ERCP with balloon dilation MEDICATIONS: Per Anesthesia and None. CONSENT: The patient understands the risks and benefits of the procedure and understands that these risks include, but are not limited to: sedation, allergic reaction, infection, perforation and/or bleeding. Alternative means of evaluation and treatment include, among others: physical exam, x-rays, and/or surgical intervention. The patient elects to proceed with this endoscopic procedure. medical equipment was checked for proper function. Hand hygiene and appropriate measures for infection prevention was taken. After the risks, benefits and alternatives of the procedure were thoroughly explained, Informed was verified, confirmed and timeout was successfully executed by the treatment team. With the patient in left semi-prone position, medications were administered intravenously.The [employer] [id number] was passed from the mouth into the esophagus and further advanced from the esophagus into the stomach. From stomach scope was directed to the second portion of the duodenum. Major papilla was aligned with the duodenoscope. The scope position was confirmed fluoroscopically. Rest of the findings/therapeutics are given below. The scope was then completely withdrawn from the patient and the procedure completed. The pulse, BP, and O2 saturation were monitored and documented by the physician and the nursing staff throughout the entire procedure. The patient was cared for as planned according to standard protocol. The patient was then discharged to recovery in stable condition and with appropriate post procedure care. The biliary tree appeared normal with no evidence of stones or filling defects. Balloon dilation of ampulla to 8mm, balloon sweep x 2 with 8.5 mm balloon. Some debris but no clear stones seen. ADVERSE EVENT: There were no complications. IMPRESSIONS: Balloon dilation of ampulla to 8mm, balloon sweep x 2 with 8.5 mm balloon. Some debris but no clear stones seen RECOMMENDATIONS: 1. Liver enzymes 2. Surgery REPEAT EXAM: Return as needed for ERCP Jose Hi MD eSigned: Jose Hi MD 09/04/2016 10:38 AM cc:
[2016-09-04] MEDS ORDERED: DO NOT ADM ANY ANTICOAGULANT DRUGS PRN (11:00)
[2016-09-04] MEDS ORDERED: NEOSTIGMINE METHYLSULFATE 10 MG/10 ML VIAL IV PUSH ONE (12:00)
[2016-09-04] MEDS ORDERED: ePHEDrine/NS 25 MG/5 ML SYR IV ONE (12:00)
[2016-09-04] MEDS ORDERED: PHENYLEPH/NS 1000 MCG/10 ML SYR IV ONE (12:00)
--- NOTE | 2016-09-04 12:03 | HHI.PR ---
Subjective Subjective Notes Resting in bed Pain better today Inquiring about timing of ERCP Objective Vitals/I&O Vital Signs Date Time Temp Pulse Resp B/P Pulse Ox O2 Delivery O2 Flow Rate FiO2 09/04/16 08:55 100.0 114 18 158/74 97 09/03/16 20:00 Room Air Labs Laboratory Tests Test 09/04/16 04:26 White Blood Count 3.7 Red Blood Count 4.61 Hemoglobin 12.5 Hematocrit 38.6 Mean Corpuscular Volume 83.7 Mean Corpuscular Hemoglobin 27.0 Mean Corpuscular Hemoglobin 32.3 Concent Red Cell Distribution Width 14.6 Platelet Count 113 Mean Platelet Volume 9.2 Neutrophils (%) (Auto) 91.0 Lymphocytes (%) (Auto) 6.7 Monocytes (%) (Auto) 2.0 Eosinophils (%) (Auto) 0.1 Basophils (%) (Auto) 0.2 Neutrophils # (Auto) 3.4 Lymphocytes # (Auto) 0.3 Monocytes # (Auto) 0.1 Eosinophils # (Auto) 0.0 Basophils # (Auto) 0.0 CBC Comment DIFF FINAL Differential Comment Total Bilirubin 3.5 Direct Bilirubin 1.4 Indirect Bilirubin 2.1 Aspartate Amino Transf 65 (AST/SGOT) Alanine Aminotransferase 233 (ALT/SGPT) Alkaline Phosphatase 209 Total Protein 7.1 Albumin 2.6 Lipase 57 Radiology Last 48 hours Impressions Gall Bladder Ultrasound 09/02/16 0000 Signed Impressions: Service Date/Time: Friday, September 02, 2016 18:07 - CONCLUSION: 1. Large stone at the gallbladder neck appears impacted there. There is gallbladder wall thickening and trace pericholecystic fluid but no sonographic Martinez sign. 2. Distended common bile duct, exact etiology uncertain. I don't clearly see a ductal stone. 3. Nonspecific mild hepatomegaly. Robby Tavares MD Cardiovascular: Regular Lungs: Clear Abdomen: Other (minimal RUQ pain with palpation ) Extremities: No edema A/P Assessment and Plan 55 year old male with acute cholecystitis; elevated liver enzymes and CBD stone -ERCP today -Follow labs -NPO for procedure -Will follow for laparoscopic cholecystectomy Attending Statement patient seen at bedside gb pancreatitis ERCP today, will plan for OR this hospital admission Attestation The exam, history, and the medical decision-making described in the above note were completed with the assistance of the mid-level provider. I reviewed and agree with the findings presented. I attest that I had a [id number] encounter with the patient on the same day, and personally performed and documented my assessment and findings in the medical record. Kizzy Moody September 04, 2016 12:02 Jacky Pierson MD September 12, 2016 21:45
--- NOTE | 2016-09-04 13:45 | RADRPT ---
EXAM DATE/TIME: 09/04/2016 10:09 [facility] COMPARISON: MRCP W/O CONTRAST, September 03, 2016, 13:50. INDICATIONS : Obstruction. FLUORO TIME: 1.03 minutes IMAGE COUNT: 2 CONTRAST: Instilled by Ordering Physician MEDICAL HISTORY : Diabetes mellitus type 2. Hypertension. SURGICAL HISTORY : ENCOUNTER: Initial ACUITY: 1 day PAIN SCORE: Non-responsive. LOCATION: Right upper quadrant FINDINGS: An ERCP was performed by the ordering physician. The images demonstrate a satisfactory filling of nondilated intrahepatic biliary tree. No evidence of filling defects to suggest stone or mass on the images provided. The cystic duct does not fill. CONCLUSION: ERCP as above. Robby Barajas MD on September 04, 2016 at 13:41 Board Certified Radiologist. This report was verified electronically.
--- NOTE | 2016-09-04 13:59 | HHI.PR ---
Subjective Subjective Remarks s/p ERCP today abd distended RUQ mildly tender tolerating clear liquid diet well, no n/v did vomit before procedure febrile overnight, max 100.5 post procedure, has a cough, productive sputum no cp no sob Review of Systems Constitutional Constitutional Remarks 12 point ROS completed, negative except as noted above Vitals/Results Intake & Output 09/03/16 09/03/16 09/04/16 15:00 23:00 07:00 Intake Total 708 ml 1399 ml 1039 ml Output Total 200 ml Balance 508 ml 1399 ml 1039 ml Intake Oral 720 ml 240 ml IV Total 708 ml 679 ml 799 ml Output Urine Total 200 ml # Voids 1 8 2 # Bowel Movements 0 0 Vital Signs Vital Signs Date Time Temp Pulse Resp B/P Pulse Ox O2 Delivery O2 Flow Rate FiO2 09/04/16 12:00 100.7 106 18 94/59 94 09/04/16 08:55 100.0 114 18 158/74 97 09/04/16 08:00 100.1 113 18 145/70 98 09/04/16 04:25 100.0 114 18 158/74 97 09/04/16 00:45 100.5 116 17 135/77 95 09/03/16 20:40 99.5 91 17 151/84 95 09/03/16 20:00 105 09/03/16 20:00 95 Room Air 09/03/16 16:30 98.6 70 18 150/88 97 CBC/BMP: 09/04/16 0426 09/03/16 0628 Lab Results Laboratory Tests Test 09/03/16 09/04/16 14:27 04:26 Hepatitis B Surface Antigen NEGATIVE Hepatitis C Antibody NEGATIVE White Blood Count 3.7 TH/MM3 Red Blood Count 4.61 MIL/MM3 Hemoglobin 12.5 GM/DL Hematocrit 38.6 % Mean Corpuscular Volume 83.7 FL Mean Corpuscular Hemoglobin 27.0 PG Mean Corpuscular Hemoglobin 32.3 % Concent Red Cell Distribution Width 14.6 % Platelet Count 113 TH/MM3 Mean Platelet Volume 9.2 FL Neutrophils (%) (Auto) 91.0 % Lymphocytes (%) (Auto) 6.7 % Monocytes (%) (Auto) 2.0 % Eosinophils (%) (Auto) 0.1 % Basophils (%) (Auto) 0.2 % Neutrophils # (Auto) 3.4 TH/MM3 Lymphocytes # (Auto) 0.3 TH/MM3 Monocytes # (Auto) 0.1 TH/MM3 Eosinophils # (Auto) 0.0 TH/MM3 Basophils # (Auto) 0.0 TH/MM3 CBC Comment DIFF FINAL Differential Comment Total Bilirubin 3.5 MG/DL Direct Bilirubin 1.4 MG/DL Indirect Bilirubin 2.1 MG/DL Aspartate Amino Transf 65 U/L (AST/SGOT) Alanine Aminotransferase 233 U/L (ALT/SGPT) Alkaline Phosphatase 209 U/L Total Protein 7.1 GM/DL Albumin 2.6 GM/DL Lipase 57 U/L Physical Exam General General Appearance: Well Developed, No Acute Distress, Comfortable Eyes Eye Exam: Pupils Equal, Pupils Reactive Ears & Nose Ears & Nose Exam: Nasal Mucosa [place] Throat Throat Exam: Oral Mucosa [place] & Moist Throat Remarks post. pharynx erythematous Neck Neck Exam: Neck Supple, Trachea Midline Pulmonary Resp Exam: No Distress, Sputum, Decreased Bases Cardiology CV Exam: Regular Gastrointestinal/Abdomen GI Exam: Bowel Sounds Present, Distended GI Remarks tender RUQ Musculoskeletal MS Exam: Joints Intact Integumentary Skin Exam: Warm, Dry Extremeties Extremities Exam: No Edema, Pedal Pulses Palpable Neurologic Neuro Exam: Alert, Awake, Oriented, Speech Clear, Moving All Extremities, No Focal Deficits Psychiatric Psych Exam: Appropriate Responses VTE Prophylaxis VTE Prophylaxis Meds: Heparin PUD Prophylasis PUD Prophylaxis: Protonix Assessment/Plan Assessment/Plan 1.Abdominal pain, + cholelithiasis, Choledocholithiasis 2. Gastroesophageal reflux disease. 3. Diabetes type 2. 4. Hypertension. 5. Gout. 6. Social ETOH dependence. 7. Fever, tachycardia, leukopenia PLAN S/P ERCP 5/3 CBD dilatation and stone removal tolerated well T bile 3.5, repeat CMP in am appreciate GI input GS also following lap cady soon continue pain management antiemetics PRN Fever, tachy, WBC 3.7 has cough post procedure CXR now Continue Zosyn BP management, continue home meds, BP meds held due to low bp Accuchecks AC/HS with ISS SCDs/Heparin for DVT prophylaxis PPI for GI prophylaxis Labs in am For lap cady soon, poss. tomorrow D/W RN D/W Dr. Nguyễn D/W pt This patient was seen by myself and Dr. Nguyễn, this note is written on his behalf. Karen Greenberg September 04, 2016 13:59
--- NOTE | 2016-09-04 14:57 | RADRPT ---
EXAM DATE/TIME: 09/04/2016 13:51 [facility] COMPARISON: No previous studies available for comparison. INDICATIONS : Cough. MEDICAL HISTORY : Hypertension. Diabetes. SURGICAL HISTORY : Appendectomy. Hernia repair. ENCOUNTER: Initial ACUITY: 1 day PAIN SCORE: 0/10 LOCATION: Bilateral chest FINDINGS: There is probable large hiatal hernia. The heart is normal. The pulmonary vascular pattern is kartik l. The lungs are clear. CONCLUSION: 1. Probable large hiatal hernia. 2. No acute focal pulmonary infiltrate or pulmonary vascular congestion. Ty Randle MD on September 04, 2016 at 14:50 Board Certified Radiologist. This report was verified electronically.
[2016-09-04] MEDS: PIPERACIL-TAZO 3.375 GM PREMIX 50 ML IV SCH ×2 (15:10→20:33)
[2016-09-05 00:30] VITALS: BP 98/67; PULSE 89; RESP 17; TEMP 98; O2SAT 98
[2016-09-05] MEDS: PIPERACIL-TAZO 3.375 GM PREMIX 50 ML IV SCH ×4 (03:20→20:14)
[2016-09-05 04:35] VITALS: BP 122/72; PULSE 93; RESP 16; TEMP 97; O2SAT 96
[2016-09-05 05:18] LABS: BLOOD, URINE MOD (NEG); COMMENT (UR) CULT NOT INDICATED; CULTURE IF INDICATED CULT NOT INDICATED; GLUCOSE,URINE NEG (NEG); KETONE, URINE TRACE mg/dL (NEG); MUCUS URINE FEW /lpf (OCC); NITRITE,URINE NEG (NEG); PH, URINE 5.5 (5.0-8.5); SQUAMOUS EPITHELIAL CELL URINE <1 /hpf (0-5); URINE COLOR YELLOW (YELLW/STRAW)
[2016-09-05 06:05] LABS: BASOPHIL % 0.1 % (0.0-2.0); EOSINOPHIL # 0.1 TH/MM3 (0-0.4); EOSINOPHIL % 1.2 % (0.0-4.0); HEMATOCRIT 35.2 % (39.0-51.0); LYMPH % 5.3 % (9.0-44.0); LYMPHOCYTE # 0.4 TH/MM3 (1.0-4.8); MEAN CELL VOLUME 81.5 FL (80.0-100.0); MEAN CORPUSCULAR HEMOGLOBIN 27.6 PG (27.0-34.0); MEAN CORPUSCULAR HGB CONC 33.8 % (32.0-36.0); MONO % 5.5 % (0.0-8.0); NEUT % 87.9 % (16.0-70.0); PLATELET COUNT 68 TH/MM3 (150-450); RED BLOOD COUNT 4.32 MIL/MM3 (4.50-5.90); WHITE BLOOD COUNT 6.8 TH/MM3 (4.0-11.0)
[2016-09-05 06:19] LABS: HEMO FLAGS AUTO DIFF
[2016-09-05] MEDS: INSULIN ASPART SUPPLEMENTAL SCALE SQ SCH ×4 (06:30→22:08)
[2016-09-05 06:57] LABS: ALKALINE PHOSPHATASE 151 U/L (45-117); ALT (GPT) 175 U/L (12-78); ANION GAP 10 MEQ/L (5-15); AST (GOT) 88 U/L (15-37); BICARBONATE 24.2 MEQ/L (21.0-32.0); BLOOD UREA NITROGEN 21 MG/DL (7-18); CHLORIDE 102 MEQ/L (98-107); GLOMERULAR FILTRATION RATE 57 ML/MIN (>89); SODIUM (NA) 136 MEQ/L (136-145); TOTAL BILIRUBIN ADULT 1.8 MG/DL (0.2-1.0)
[2016-09-05 07:07] LABS: POTASSIUM 2.9 MEQ/L (3.5-5.1)
[2016-09-05 08:00] VITALS: BP 124/72; PULSE 88; RESP 18; TEMP 98.1; O2SAT 96
[2016-09-05] MEDS: HEPARIN SODIUM - SQ 10,000 UNITS/ML VIAL SQ SCH ×2 (08:00→20:00)
[2016-09-05] MEDS ORDERED: POTASSIUM CHLORIDE 20 MEQ CONTROLLED RELEASE TAB PO ONE (08:15)
[2016-09-05] MEDS: LISINOPRIL 20 MG TAB PO SCH (08:52)
[2016-09-05] MEDS: PANTOPRAZOLE SOD 40 MG DELAYED RELEASE TAB PO SCH (08:52)
[2016-09-05] MEDS: SODIUM CHLOR 0.9% 1000 ML INJ 1,000 ML IV SCH ×2 (08:53→18:50)
[2016-09-05] MEDS: ALLOPURINOL 300 MG TAB PO SCH (08:54)
[2016-09-05] MEDS: POTASSIUM CHLOR 20 MEQ PREMIX 100 ML IV SCH ×2 (08:54→13:20)
[2016-09-05] MEDS: SODIUM CHLORIDE 0.9% FLUSH 10 ML FLUSH IV FLUSH SCH ×2 (08:54→20:14)
[2016-09-05 10:13] LABS: BANDS 35 % (0-6); EOSINOPHILS 1 % (0-4); METAMYELOCYTES 7 % (0-1); NEUTROPHIL # MANUAL DIFF 6.2 TH/MM3 (1.8-7.7); POLYS (SEG NEUTROPHILS) 49 % (16-70); WBC DIFF SAMPLE 100
[2016-09-05 10:14] LABS: PLATELET ESTIMATE SMEAR LOW (NORMAL); PLATELET MORPHOLOGY NORMAL (NORMAL); SCAN/DIFF FINAL DIFF MANUAL
--- NOTE | 2016-09-05 11:51 | HHI.PR ---
Subjective Subjective Remarks no abd. pain liquid green stools, approx 15 since yesterday no fever no cp no sob NPO for surgery today Review of Systems Constitutional Constitutional Remarks 12 point ROS completed, negative except as noted above Vitals/Results Intake & Output 09/04/16 09/04/16 09/05/16 15:00 23:00 07:00 Intake Total 1810 ml 1315 ml 815 ml Balance 1810 ml 1315 ml 815 ml Intake Oral 960 ml 620 ml 240 ml IV Total 50 ml 695 ml 575 ml Other 800 ml # Voids 3 2 9 # Bowel Movements 2 3 9 Vital Signs Vital Signs Date Time Temp Pulse Resp B/P Pulse Ox O2 Delivery O2 Flow Rate FiO2 09/05/16 08:00 98.1 88 18 124/72 96 09/05/16 04:35 97.0 93 16 122/72 96 09/05/16 00:30 98.0 89 17 98/67 98 09/04/16 21:40 95 Room Air 09/04/16 20:57 95 21 09/04/16 20:25 98.6 96 16 105/69 95 09/04/16 20:00 95 09/04/16 16:00 98.5 106 18 104/66 96 09/04/16 12:00 100.7 106 18 94/59 94 CBC/BMP: 09/05/16 0535 09/05/16 0535 Lab Results Laboratory Tests Test 09/05/16 09/05/16 04:45 05:35 Urine Color YELLOW Urine Turbidity HAZY Urine pH 5.5 Urine Specific [place] 1.026 Urine Protein 30 mg/dL Urine Glucose (UA) NEG mg/dL Urine Ketones TRACE mg/dL Urine Occult Blood MOD Urine Nitrite NEG Urine Bilirubin SMALL Urine Urobilinogen LESS THAN 2.0 MG/DL Urine Leukocyte Esterase NEG Urine RBC 1 /hpf Urine WBC 4 /hpf Urine Squamous Epithelial <1 /hpf Cells Urine Mucus FEW /lpf Microscopic Urinalysis Comment CULT NOT INDICATED White Blood Count 6.8 TH/MM3 Red Blood Count 4.32 MIL/MM3 Hemoglobin 11.9 GM/DL Hematocrit 35.2 % Mean Corpuscular Volume 81.5 FL Mean Corpuscular Hemoglobin 27.6 PG Mean Corpuscular Hemoglobin 33.8 % Concent Red Cell Distribution Width 15.0 % Platelet Count 68 TH/MM3 Mean Platelet Volume 9.8 FL Neutrophils (%) (Auto) 87.9 % Lymphocytes (%) (Auto) 5.3 % Monocytes (%) (Auto) 5.5 % Eosinophils (%) (Auto) 1.2 % Basophils (%) (Auto) 0.1 % Neutrophils # (Auto) 6.0 TH/MM3 Lymphocytes # (Auto) 0.4 TH/MM3 Monocytes # (Auto) 0.4 TH/MM3 Eosinophils # (Auto) 0.1 TH/MM3 Basophils # (Auto) 0.0 TH/MM3 CBC Comment AUTO DIFF Differential Total Cells 100 Counted Neutrophils % (Manual) 49 % Band Neutrophils % 35 % Lymphocytes % 2 % Monocytes % 6 % Eosinophils % 1 % Neutrophils # (Manual) 6.2 TH/MM3 Metamyelocytes 7 % Differential Comment FINAL DIFF MANUAL Platelet Estimate LOW Platelet Morphology Comment NORMAL Sodium Level 136 MEQ/L Potassium Level 2.9 MEQ/L Chloride Level 102 MEQ/L Carbon Dioxide Level 24.2 MEQ/L Anion Gap 10 MEQ/L Blood Urea Nitrogen 21 MG/DL Creatinine 1.30 MG/DL Estimat Glomerular Filtration 57 ML/MIN Rate Random Glucose 154 MG/DL Calcium Level 8.2 MG/DL Total Bilirubin 1.8 MG/DL Aspartate Amino Transf 88 U/L (AST/SGOT) Alanine Aminotransferase 175 U/L (ALT/SGPT) Alkaline Phosphatase 151 U/L Total Protein 6.8 GM/DL Albumin 2.2 GM/DL Physical Exam General General Appearance: Well Developed, No Acute Distress, Comfortable Eyes Eye Exam: Pupils Equal, Pupils Reactive Ears & Nose Ears & Nose Exam: Nasal Mucosa [place] Throat Throat Exam: Oral Mucosa [place] & Moist Throat Remarks post. pharynx erythematous Neck Neck Exam: Neck Supple, Trachea Midline Pulmonary Resp Exam: No Distress, Sputum, Decreased Bases Cardiology CV Exam: Regular Gastrointestinal/Abdomen GI Exam: Soft, Bowel Sounds Present, Non-Distended Musculoskeletal MS Exam: Joints Intact Integumentary Skin Exam: Warm, Dry Extremeties Extremities Exam: No Edema, Pedal Pulses Palpable Neurologic Neuro Exam: Alert, Awake, Oriented, Speech Clear, Moving All Extremities, No Focal Deficits Psychiatric Psych Exam: Appropriate Responses VTE Prophylaxis VTE Prophylaxis Meds: Heparin PUD Prophylasis PUD Prophylaxis: Protonix Assessment/Plan Assessment/Plan 1.Abdominal pain, + cholelithiasis, Choledocholithiasis 2. Gastroesophageal reflux disease. 3. Diabetes type 2. 4. Hypertension. 5. Gout. 6. Social ETOH dependence. 7. Fever, tachycardia, leukopenia PLAN S/P ERCP / CBD dilatation and stone removal tolerated well T bile 1.8 appreciate GI input minimal pain GS also following lap cady today afebrile, WBC 6.8 cxr reviewed, ok Continue Zosyn Diarrhea, ? abx induced, r/o cdiff stool for cdiff Hypokalemia, K 2.9 K replacement in progress. BP management, continue home meds, BP meds held due to low bp Accuchecks AC/HS with ISS SCDs/Heparin for DVT prophylaxis PPI for GI prophylaxis Replace K Labs in am T OR today D/W RN D/W Dr. Nguyễn D/W pt and family This patient was seen by myself and Dr. Nguyễn, this note is written on his behalf. Karen Greenberg September 05, 2016 11:51
[2016-09-05] MEDS ORDERED: PHENYLEPHRINE HCL 10 MG/ML VIAL IV ONE (12:00)
[2016-09-05] MEDS ORDERED: LACTATED RINGER'S 1000 ML INJ 2,000 ML IV ONE (12:00)
[2016-09-05] MEDS ORDERED: NEOSTIGMINE 3 MG/3 ML SYR IV ONE (12:00)
[2016-09-05] MEDS ORDERED: SODIUM CHLOR 0.9% 250 ML INJ 250 ML IV ONE (12:00)
[2016-09-05] MEDS ORDERED: CALCIUM CHLORIDE 10% SOLN 1 GRAM/10 ML SYR IV ONE (12:00)
[2016-09-05] MEDS ORDERED: PHENYLEPH/NS 1000 MCG/10 ML SYR IV ONE (12:00)
[2016-09-05] MEDS ORDERED: PROPOFOL 200 MG/20 ML AMP IV ONE (12:00)
[2016-09-05] MEDS ORDERED: ONDANSETRON HCL 4 MG/2 ML VIAL IV ONE (12:00)
[2016-09-05] MEDS: ceFAZolin 2 GM PREMIX 50 ML IV SCH ×2 (13:00→13:04)
[2016-09-05] MEDS ORDERED: LIDOCAINE 1%/EPINEPHrine 1:100,000 SOLN 50 ML VIAL ONE (13:50)
[2016-09-05] MEDS ORDERED: BUPIVACAINE/EPINEPHRINE 0.5% 50 ML VIAL ONE (13:52)
[2016-09-05] MEDS ORDERED: FAMOTIDINE 20 MG/2 ML VIAL ONE (14:08)
[2016-09-05] MEDS ORDERED: MIDAZOLAM HCL 2 MG/2 ML VIAL ONE (14:08)
--- NOTE | 2016-09-05 14:41 | HHI.PR ---
Immediate Post Op Note Procedure Date: September 05, 2016 Pre Op Diagnosis: gallstone pancreatitis, choledocholithiasis, cholelithiasis Post Op Diagnosis: same Surgeon: Jacky Pierson MD [place] Classifier(s): see or sheet Procedure: lap cady Findings: distended gallbladder, very inflamed, large gallstones Complications: none Specimen(s) removed: gallbladder Estimated blood loss: 5cc Anesthesia: General Drains: BRIAN IVF (1999) Patient to: PACU Patient Condition: Good Jacky Pierson MD September 05, 2016 14:41
[2016-09-05] MEDS ORDERED: fentaNYL CITRATE 250 MCG/5 ML AMP ONE (15:09)
--- NOTE | 2016-09-05 15:38 | HHI.GIFU ---
Subjective Remarks pt off floor Objective Vitals I&O Vital Signs Date Time Temp Pulse Resp B/P Pulse Ox O2 Delivery O2 Flow Rate FiO2 09/05/16 08:00 98.1 88 18 124/72 96 09/05/16 04:35 97.0 93 16 122/72 96 09/05/16 00:30 98.0 89 17 98/67 98 09/04/16 21:40 95 Room Air 09/04/16 20:57 95 21 09/04/16 20:25 98.6 96 16 105/69 95 09/04/16 20:00 95 09/04/16 16:00 98.5 106 18 104/66 96 I/O 09/04/16 09/04/16 09/04/16 09/05/16 09/05/16 09/05/16 07:00 15:00 23:00 07:00 15:00 23:00 Intake Total 1039 ml 1810 ml 1315 ml 815 ml Balance 1039 ml 1810 ml 1315 ml 815 ml Intake Oral 240 ml 960 ml 620 ml 240 ml IV Total 799 ml 50 ml 695 ml 575 ml Other 800 ml # Voids 2 3 2 9 # Bowel Movements 0 2 3 9 Laboratory Laboratory Tests Test 09/05/16 09/05/16 04:45 05:35 Urine Color YELLOW Urine Turbidity HAZY Urine pH 5.5 Urine Specific [place] 1.026 Urine Protein 30 Urine Glucose (UA) NEG Urine Ketones TRACE Urine Occult Blood MOD Urine Nitrite NEG Urine Bilirubin SMALL Urine Urobilinogen LESS THAN 2.0 Urine Leukocyte Esterase NEG Urine RBC 1 Urine WBC 4 Urine Squamous Epithelial <1 Cells Urine Mucus FEW Microscopic Urinalysis Comment CULT NOT INDICATED White Blood Count 6.8 Red Blood Count 4.32 Hemoglobin 11.9 Hematocrit 35.2 Mean Corpuscular Volume 81.5 Mean Corpuscular Hemoglobin 27.6 Mean Corpuscular Hemoglobin 33.8 Concent Red Cell Distribution Width 15.0 Platelet Count 68 Mean Platelet Volume 9.8 Neutrophils (%) (Auto) 87.9 Lymphocytes (%) (Auto) 5.3 Monocytes (%) (Auto) 5.5 Eosinophils (%) (Auto) 1.2 Basophils (%) (Auto) 0.1 Neutrophils # (Auto) 6.0 Lymphocytes # (Auto) 0.4 Monocytes # (Auto) 0.4 Eosinophils # (Auto) 0.1 Basophils # (Auto) 0.0 CBC Comment AUTO DIFF Differential Total Cells 100 Counted Neutrophils % (Manual) 49 Band Neutrophils % 35 Lymphocytes % 2 Monocytes % 6 Eosinophils % 1 Neutrophils # (Manual) 6.2 Metamyelocytes 7 Differential Comment FINAL DIFF MANUAL Platelet Estimate LOW Platelet Morphology Comment NORMAL Sodium Level 136 Potassium Level 2.9 Chloride Level 102 Carbon Dioxide Level 24.2 Anion Gap 10 Blood Urea Nitrogen 21 Creatinine 1.30 Estimat Glomerular Filtration 57 Rate Random Glucose 154 Calcium Level 8.2 Total Bilirubin 1.8 Aspartate Amino Transf 88 (AST/SGOT) Alanine Aminotransferase 175 (ALT/SGPT) Alkaline Phosphatase 151 Total Protein 6.8 Albumin 2.2 Imaging Last Impressions GI Procedure 09/04/16 0000 Signed Impressions: Service Date/Time: Sunday, September 04, 2016 10:09 - CONCLUSION: ERCP as above. Robby Barajas MD Chest X-Ray 09/04/16 0000 Signed Impressions: Service Date/Time: Sunday, September 04, 2016 13:51 - CONCLUSION: 1. Probable large hiatal hernia. 2. No acute focal pulmonary infiltrate or pulmonary vascular congestion. Ty Randle MD Cholangiopancreatography MRI 09/03/16 0000 Signed Impressions: Service Date/Time: Saturday, September 03, 2016 13:50 - CONCLUSION: Gallstone with gallbladder wall thickening and surrounding inflammatory changes. At least one common duct stone. Nonspecific T2 hyperintense lesion in the dome of the liver warrants followup and further evaluation, ideally with multiphase contrasted MRI. This can be accomplished on an elective basis. Robby Barajas MD Gall Bladder Ultrasound 09/02/16 0000 Signed Impressions: Service Date/Time: Friday, September 02, 2016 18:07 - CONCLUSION: 1. Large stone at the gallbladder neck appears impacted there. There is gallbladder wall thickening and trace pericholecystic fluid but no sonographic Martinez sign. 2. Distended common bile duct, exact etiology uncertain. I don't clearly see a ductal stone. 3. Nonspecific mild hepatomegaly. Robby Tavares MD Physical Exam pt off floor Assessment and Plan Plan ASSESSMENT: - Choledocholithiasis, elevated LFTs. Lap cholecystectomty in progress- pt off floor. s/p ERCP baloon dilation, no stones found. Gall Bladder Ultrasound (09/02/16)----> 1. Large stone at the gallbladder neck appears impacted there. There is gallbladder wall thickening and trace pericholecystic fluid but no sonographic Martinez sign. 2. Distended common bile duct, exact etiology uncertain. I don't clearly see a ductal stone. 3. Nonspecific mild hepatomegaly. Had increase in Bilirubin today. MRCP (09/03/16)-----> revealed gallstone with gallbladder wall thickening and surrounding inflammatory changes. At least one common duct stone. Nonspecific T2 hyperintense lesion in the dome of the liver warrants followup and further evaluation, ideally with multiphase contrasted MRI. This can be accomplished on an elective basis. T. Bili 2.1, AST 88, ALT 175, Alk Phosph 151. - Cholelithiasis, RUQ pain. GS following, lap cady pending. Was found to have increasing bilirubin and CBD stone on MRCP. GI consulted for ERCP first. - Nonspecific liver lesion on MRCP (noncontrasted), recommend multiphase contrasted MRI outpatient. Will get AFP. - GERD. PPI - DM, Gout, HTN per primary PLAN: - diet per GS - PPI - IVF - Monitor labs - Supportive care - f/u with GI as outpt in 2 wks - GI will sign off, reconsult as needed. - PT seen and examined by Dr. Hi and myself and this note is written on his behalf Dafne Price September 05, 2016 15:38
[2016-09-05 16:01] LABS: AUTOMATED NEUTROPHIL # 7.8 TH/MM3 (1.8-7.7); BASOPHIL % 0.3 % (0.0-2.0); EOSINOPHIL # 0.1 TH/MM3 (0-0.4); EOSINOPHIL % 0.8 % (0.0-4.0); HEMATOCRIT 32.9 % (39.0-51.0); LYMPH % 9.8 % (9.0-44.0); LYMPHOCYTE # 0.9 TH/MM3 (1.0-4.8); MEAN CELL VOLUME 82.5 FL (80.0-100.0); MEAN CORPUSCULAR HEMOGLOBIN 27.7 PG (27.0-34.0); MEAN CORPUSCULAR HGB CONC 33.6 % (32.0-36.0); MONO % 6.7 % (0.0-8.0); NEUT % 82.4 % (16.0-70.0); PLATELET COUNT 91 TH/MM3 (150-450); RED BLOOD COUNT 3.99 MIL/MM3 (4.50-5.90); RED CELL DISTRIBUTION WIDTH 14.7 % (11.6-17.2); WHITE BLOOD COUNT 9.5 TH/MM3 (4.0-11.0)
[2016-09-05 16:02] LABS: HEMO FLAGS AUTO DIFF
[2016-09-05 16:36] LABS: BANDS 23 % (0-6); EOSINOPHILS 2 % (0-4); NEUTROPHIL # MANUAL DIFF 7.6 TH/MM3 (1.8-7.7); POLYS (SEG NEUTROPHILS) 57 % (16-70); WBC DIFF SAMPLE 100
[2016-09-05 16:37] LABS: DOHLE BODIES PRESENT (NONE SEEN); PLATELET ESTIMATE SMEAR LOW (NORMAL); PLATELET MORPHOLOGY ENLARGED (NORMAL); TOXIC VACUOLATION PRESENT (NONE SEEN)
[2016-09-05 16:38] LABS: SCAN/DIFF FINAL DIFF MANUAL
[2016-09-05 17:40] LABS: BICARBONATE 23.4 MEQ/L (21.0-32.0); POTASSIUM 3.9 MEQ/L (3.5-5.1)
[2016-09-05] MEDS ORDERED: DO NOT ADM ANY ANTICOAGULANT DRUGS PRN (18:00)
[2016-09-05 18:32] VITALS: BP 120/76; PULSE 91; RESP 18; TEMP 97.2; O2SAT 95
[2016-09-05] MEDS: SODIUM CHLORIDE 0.9% FLUSH 10 ML FLUSH IV FLUSH PRN (18:49)
[2016-09-05 20:07] VITALS: PULSE 91
--- NOTE | 2016-09-05 20:43 | MP ---
cc: AJ PIERSON MD DATE OF SURGERY: 09/05/2016. PREOPERATIVE DIAGNOSIS: 1. Gallstone pancreatitis. 2. Choledocholithiasis with cholelithiasis and cholecystitis. POSTOPERATIVE DIAGNOSIS: 1. Gallstone pancreatitis. 2. Choledocholithiasis with cholelithiasis and cholecystitis. OPERATIVE PROCEDURE PERFORMED: Laparoscopic cholecystectomy SURGEON: Dr. Aj Pierson. DEVELOPMENT CHEMIST: See the OR sheet. ANESTHESIA: GETA. IV FLUIDS: 2000 mL. ESTIMATED BLOOD LOSS: 350 mL. DRAINS: A 10-[place] Alex drain placed in the right upper quadrant. COMPLICATIONS None. WOUND CLASSIFICATION: Clean / contaminated. FINDINGS: 1. Significantly distended gallbladder, multiple large gallstones in the gallbladder infundibulum. 2. Chronic inflammation with adhesions and omentum adhered to the gallbladder. SPECIMENS: Gallbladder. INDICATIONS FOR THE PROCEDURE: The patient is a 55-year-old male who presents with acute onset of right upper quadrant pain. He stated the pain started several days ago and continued to progress. He had further workup including gallbladder ultrasound and MRCP showing gallstones with common bile duct stone. He had elevated LFTs and total bilirubin and therefore he underwent ERCP with stone removal and improvement. Therefore, he consented for a laparoscopic cholecystectomy. Discussed with the patient in detail the possible chance of open procedure versus drain placement. The patient stated understanding, agreed and would like to proceed. DESCRIPTION OF THE PROCEDURE IN DETAIL: The patient was taken to the operating suite and placed in the supine position. He was prepped and draped in the usual sterile fashion after the induction of general endotracheal anesthesia. A brief time-out was done stating correct patient, procedure surgical site and all were in agreement with this. Attention was first directed to the umbilicus where a stab anabel incision made. A Veress needle was placed. The saline drop test confirmed intra-abdominal placement. The Veress was switched for a 5-mm port and endoscope. On cursory inspection, no evidence of injury. There were no adhesions but there were adhesions except to the omentum and the gallbladder. Three other ports were placed: One 12 mm epigastric followed by two 5 mm right subcostal ports. The patient was placed in reverse Trendelenburg and planed to the left. The gallbladder was attempted to be identified, although again, adhesions were noted in the gallbladder from the omentum. These were removed with the harmonic scalpel and suction irrigation . The gallbladder was significantly distended requiring an Endo needle in order to decompress the gallbladder. The gallbladder was then grasped and retracted cephalad. Again, meticulous dissection to get the adhesions off the thickened and chronically inflamed gallbladder wall. Dissection was taken down to the infundibulum, the cystic duct, and cystic artery; this was done with a harmonic scalpel and again irrigation and dissection. The cystic artery was identified and the harmonic was used to transect the cystic artery after two clips were placed proximal. The cystic duct was noted to be somewhat thickened and dilated and therefore three 10 mm clips were placed across this. The cystic duct was then transected with the Endo renetta. The harmonic scalpel was used to transect the gallbladder from the gallbladder fossa. A spatula was used to obtain hemostasis. A small piece of Surgicel was placed in gallbladder fossa. The gallbladder was then placed in the EndoCatch bag and removed from the abdomen. A suction drain 10-mm flat Jose-Pedersen drain was placed in the right upper quadrant and secured with 2-0 nylon. Then #0 Vicryl was used [id number] to close the epigastric incisional port. The other ports were closed with 4-0 Monocryl subcuticular sutures. The patient tolerated the procedure well. There were no intraoperative complications. The patient was extubated and taken tot he post-anesthesia care unit. All lap and instrument counts were correct. MD SHMUEL Martines/BEV /4:45 PM /8:34 PM
[2016-09-06] VITALS: BP 121/74; PULSE 80; RESP 16; TEMP 98.2; O2SAT 98
[2016-09-06] MEDS: PIPERACIL-TAZO 3.375 GM PREMIX 50 ML IV SCH ×3 (02:45→13:33)
[2016-09-06] MEDS: SODIUM CHLOR 0.9% 1000 ML INJ 1,000 ML IV SCH ×2 (03:22→10:46)
[2016-09-06 04:00] VITALS: BP 124/75; PULSE 72; RESP 17; TEMP 96.8; O2SAT 97
[2016-09-06] MEDS: INSULIN ASPART SUPPLEMENTAL SCALE SQ SCH ×3 (06:37→17:19)
[2016-09-06 07:27] LABS: HEMATOCRIT 31.3 % (39.0-51.0); MEAN CELL VOLUME 82.2 FL (80.0-100.0); MEAN CORPUSCULAR HEMOGLOBIN 26.8 PG (27.0-34.0); MEAN CORPUSCULAR HGB CONC 32.6 % (32.0-36.0); PLATELET COUNT 63 TH/MM3 (150-450); RED BLOOD COUNT 3.81 MIL/MM3 (4.50-5.90); RED CELL DISTRIBUTION WIDTH 15.1 % (11.6-17.2); WHITE BLOOD COUNT 6.8 TH/MM3 (4.0-11.0)
[2016-09-06 07:49] LABS: REVIEW FLAG AUTO DIFF
[2016-09-06 08:00] VITALS: BP 135/88; PULSE 70; RESP 16; TEMP 96.5; O2SAT 97
[2016-09-06 08:04] LABS: BICARBONATE 26.1 MEQ/L (21.0-32.0); MAGNESIUM 2.6 MG/DL (1.5-2.5); POTASSIUM 4.2 MEQ/L (3.5-5.1)
[2016-09-06] MEDS: LISINOPRIL 20 MG TAB PO SCH (08:12)
[2016-09-06] MEDS: ALLOPURINOL 300 MG TAB PO SCH (08:13)
[2016-09-06] MEDS: PANTOPRAZOLE SOD 40 MG DELAYED RELEASE TAB PO SCH (08:13)
[2016-09-06] MEDS: HEPARIN SODIUM - SQ 10,000 UNITS/ML VIAL SQ SCH (08:14)
[2016-09-06] MEDS: SODIUM CHLORIDE 0.9% FLUSH 10 ML FLUSH IV FLUSH SCH (08:14)
--- NOTE | 2016-09-06 11:24 | HHI.GIFU ---
Subjective Remarks Resting in bed. No n/v. Pain controlled. + BM. Hoping to go home. (Fouzia Gagnon) Objective Vitals I&O Vital Signs Date Time Temp Pulse Resp B/P Pulse Ox O2 Delivery O2 Flow Rate FiO2 09/06/16 08:00 96.5 70 16 135/88 97 09/06/16 04:00 96.8 72 17 124/75 97 09/06/16 00:00 98.2 80 16 121/74 98 09/05/16 20:07 91 09/05/16 18:32 97.2 91 18 120/76 95 09/05/16 18:09 21 09/05/16 18:00 98.5 90 15 103/56 94 Room Air 09/05/16 17:45 92 16 105/57 93 Room Air 09/05/16 17:30 95 15 99/55 94 Room Air 09/05/16 17:15 98.4 99 15 106/60 92 Room Air I/O 09/05/16 09/05/16 09/05/16 09/06/16 09/06/16 09/06/16 07:00 15:00 23:00 07:00 15:00 23:00 Intake Total 815 ml 0 ml 2600 ml 480 ml 59 ml Output Total 425 ml 40 ml Balance 815 ml 0 ml 2175 ml 440 ml 59 ml Intake Oral 240 ml 0 ml 600 ml 480 ml IV Total 575 ml 59 ml Other 2000 ml Drainage Total 25 ml 40 ml Estimated Blood Loss 400 ml # Voids 9 5 2 3 # Bowel Movements 9 4 Laboratory Laboratory Tests Test 09/05/16 09/06/16 15:44 06:37 White Blood Count 9.5 6.8 Red Blood Count 3.99 3.81 Hemoglobin 11.1 10.2 Hematocrit 32.9 31.3 Mean Corpuscular Volume 82.5 82.2 Mean Corpuscular Hemoglobin 27.7 26.8 Mean Corpuscular Hemoglobin 33.6 32.6 Concent Red Cell Distribution Width 14.7 15.1 Platelet Count 91 63 Mean Platelet Volume 9.8 10.0 Neutrophils (%) (Auto) 82.4 Lymphocytes (%) (Auto) 9.8 Monocytes (%) (Auto) 6.7 Eosinophils (%) (Auto) 0.8 Basophils (%) (Auto) 0.3 Neutrophils # (Auto) 7.8 Lymphocytes # (Auto) 0.9 Monocytes # (Auto) 0.6 Eosinophils # (Auto) 0.1 Basophils # (Auto) 0.0 CBC Comment AUTO DIFF Differential Total Cells 100 Counted Neutrophils % (Manual) 57 Band Neutrophils % 23 Lymphocytes % 14 Monocytes % 4 Eosinophils % 2 Neutrophils # (Manual) 7.6 Differential Comment FINAL DIFF MANUAL Toxic Granulation Toxic Vacuolation PRESENT Dohle Bodies PRESENT Platelet Estimate LOW Platelet Morphology Comment ENLARGED Sodium Level 137 137 Potassium Level 3.9 4.2 Chloride Level 104 103 Carbon Dioxide Level 23.4 26.1 Anion Gap 10 8 Blood Urea Nitrogen 22 21 Creatinine 1.31 1.12 Estimat Glomerular Filtration 56 68 Rate Random Glucose 195 270 Calcium Level 8.8 8.6 Magnesium Level 2.6 Lipase 131 Imaging Last Impressions GI Procedure 09/04/16 Signed Impressions: Service Date/Time: Sunday, September 04, 2016 10:09 - CONCLUSION: ERCP as above. Robby Barajas MD Chest X-Ray 09/04/16 Signed Impressions: Service Date/Time: Sunday, September 04, 2016 13:51 - CONCLUSION: 1. Probable large hiatal hernia. 2. No acute focal pulmonary infiltrate or pulmonary vascular congestion. Ty Randle MD Cholangiopancreatography MRI 09/03/16 Signed Impressions: Service Date/Time: Saturday, September 03, 2016 13:50 - CONCLUSION: Gallstone with gallbladder wall thickening and surrounding inflammatory changes. At least one common duct stone. Nonspecific T2 hyperintense lesion in the dome of the liver warrants followup and further evaluation, ideally with multiphase contrasted MRI. This can be accomplished on an elective basis. Robby Barajas MD Gall Bladder Ultrasound 09/02/16 Signed Impressions: Service Date/Time: Friday, September 02, 2016 18:07 - CONCLUSION: 1. Large stone at the gallbladder neck appears impacted there. There is gallbladder wall thickening and trace pericholecystic fluid but no sonographic Martinez sign. 2. Distended common bile duct, exact etiology uncertain. I don't clearly see a ductal stone. 3. Nonspecific mild hepatomegaly. Robby Tavares MD Physical Exam HEENT: Normocephalic; atraumatic; no jaundice. CHEST: CTA CARDIAC: RRR ABDOMEN: Soft, nondistended, RUQ tenderness; no hepatosplenomegaly; bowel sounds are present in all four quadrants. BRIAN drain ruq EXTREMITIES: No clubbing, cyanosis, or edema. SKIN: Normal; no rash; no jaundice. GARBAGE MAN: No focal deficits; alert and oriented times three (Fouzia Gagnon) Assessment and Plan Plan ASSESSMENT: - Choledocholithiasis, elevated LFTs. Gall Bladder Ultrasound (09/02/16)----> 1. Large stone at the gallbladder neck appears impacted there. There is gallbladder wall thickening and trace pericholecystic fluid but no sonographic Martinez sign. 2. Distended common bile duct, exact etiology uncertain. I don't clearly see a ductal stone. 3. Nonspecific mild hepatomegaly. MRCP ( 09/03/16)-----> revealed gallstone with gallbladder wall thickening and surrounding inflammatory changes. At least one common duct stone. Nonspecific T2 hyperintense lesion in the dome of the liver warrants followup and further evaluation, ideally with multiphase contrasted MRI. This can be accomplished on an elective basis. S/P ERCP (09/04/16)---> Balloon dilation of ampulla to 8mm, balloon sweep x 2 with 8.5 mm balloon. Some debris but no clear stones seen. S/P Lap. Cholecystectomy (09/05/16). Feeling much better. Labs stable. Tolerating diet. - Cholelithiasis, RUQ pain. S/P Lap. Zakiya. - Nonspecific liver lesion on MRCP (noncontrasted), recommend multiphase contrasted MRI outpatient. Will get AFP. - GERD. PPI - DM, Gout, HTN per primary PLAN: - Okay to d/c home from GI standpoint - FU HELEN in 2 weeks - Consider MRI with multiphase contrast as outpatient for evaluation of nonspecific liver lesion. - GI will sign off, reconsult as needed. - PT seen and examined by Dr. Hi and myself and this note is written on his behalf (Fouzia Gagnon) Physician Comments Seen and examined with OLY< doing better. s/p cholecystectomy and ERCP. GI fu upon dc in 02 weeks with repeat LFTs. Thank you (Jose Hi MD) Fouzia Gagnon September 06, 2016 11:24 Jose Hi MD September 06, 2016 15:21
[2016-09-06 12:00] VITALS: BP 133/87; PULSE 75; RESP 14; TEMP 97.8; O2SAT 96
--- NOTE | 2016-09-06 12:01 | HHI.DCPOC ---
Discharge Care Plan Diagnosis: (1) Acute cholecystitis (2) Cholelithiasis Your Health Problems Are: Appetite Changes Irregular Bowel Function Goals to Promote Your Health * To prevent worsening of your condition and complications * To maintain your health at the optimal level Directions to Meet Your Goals Take your medications as prescribed Follow your dietary instruction Follow activity as directed Keep your appointments as scheduled Take your immunizations and boosters as scheduled If your symptoms worsen call your PCP, if no PCP go to Urgent Care Center or Emergency Room Smoking is Dangerous to Your Health. Avoid second hand smoke Call the 24-hour hour crisis hotline for domestic abuse at Karen Greenberg September 06, 2016 12:00
--- NOTE | 2016-09-06 12:05 | HHI.PR ---
Subjective Subjective Remarks s/p lap cady 09/05 doing well, minimal pain no fever has BRIAN with minimal output no cp no sob eating ok, no n/v had formed stool today, no longer with diarrhea Review of Systems Constitutional Constitutional Remarks 12 point ROS completed, negative except as noted above Vitals/Results Intake & Output 09/05/16 09/05/16 09/06/16 15:00 23:00 07:00 Intake Total 0 ml 2600 ml 480 ml Output Total 425 ml 40 ml Balance 0 ml 2175 ml 440 ml Intake Oral 0 ml 600 ml 480 ml Other 2000 ml Drainage Total 25 ml 40 ml Estimated Blood Loss 400 ml # Voids 5 2 3 # Bowel Movements 4 Vital Signs Vital Signs Date Time Temp Pulse Resp B/P Pulse Ox O2 Delivery O2 Flow Rate FiO2 09/06/16 08:00 96.5 70 16 135/88 97 09/06/16 04:00 96.8 72 17 124/75 97 09/06/16 00:00 98.2 80 16 121/74 98 09/05/16 20:07 91 09/05/16 18:32 97.2 91 18 120/76 95 09/05/16 18:09 21 09/05/16 18:00 98.5 90 15 103/56 94 Room Air 09/05/16 17:45 92 16 105/57 93 Room Air 09/05/16 17:30 95 15 99/55 94 Room Air 09/05/16 17:15 98.4 99 15 106/60 92 Room Air CBC/BMP: 09/06/16 0637 09/06/16 0637 Lab Results Laboratory Tests Test 09/05/16 09/06/16 15:44 06:37 White Blood Count 9.5 TH/MM3 6.8 TH/MM3 Red Blood Count 3.99 MIL/MM3 3.81 MIL/MM3 Hemoglobin 11.1 GM/DL 10.2 GM/DL Hematocrit 32.9 % 31.3 % Mean Corpuscular Volume 82.5 FL 82.2 FL Mean Corpuscular Hemoglobin 27.7 PG 26.8 PG Mean Corpuscular Hemoglobin 33.6 % 32.6 % Concent Red Cell Distribution Width 14.7 % 15.1 % Platelet Count 91 TH/MM3 63 TH/MM3 Mean Platelet Volume 9.8 FL 10.0 FL Neutrophils (%) (Auto) 82.4 % Lymphocytes (%) (Auto) 9.8 % Monocytes (%) (Auto) 6.7 % Eosinophils (%) (Auto) 0.8 % Basophils (%) (Auto) 0.3 % Neutrophils # (Auto) 7.8 TH/MM3 Lymphocytes # (Auto) 0.9 TH/MM3 Monocytes # (Auto) 0.6 TH/MM3 Eosinophils # (Auto) 0.1 TH/MM3 Basophils # (Auto) 0.0 TH/MM3 CBC Comment AUTO DIFF Differential Total Cells 100 Counted Neutrophils % (Manual) 57 % Band Neutrophils % 23 % Lymphocytes % 14 % Monocytes % 4 % Eosinophils % 2 % Neutrophils # (Manual) 7.6 TH/MM3 Differential Comment FINAL DIFF MANUAL Toxic Granulation Toxic Vacuolation PRESENT Dohle Bodies PRESENT Platelet Estimate LOW Platelet Morphology Comment ENLARGED Sodium Level 137 MEQ/L 137 MEQ/L Potassium Level 3.9 MEQ/L 4.2 MEQ/L Chloride Level 104 MEQ/L 103 MEQ/L Carbon Dioxide Level 23.4 MEQ/L 26.1 MEQ/L Anion Gap 10 MEQ/L 8 MEQ/L Blood Urea Nitrogen 22 MG/DL 21 MG/DL Creatinine 1.31 MG/DL 1.12 MG/DL Estimat Glomerular Filtration 56 ML/MIN 68 ML/MIN Rate Random Glucose 195 MG/DL 270 MG/DL Calcium Level 8.8 MG/DL 8.6 MG/DL Magnesium Level 2.6 MG/DL Lipase 131 U/L Physical Exam General General Appearance: Well Developed, No Acute Distress, Comfortable Eyes Eye Exam: Pupils Equal, Pupils Reactive Ears & Nose Ears & Nose Exam: Nasal Mucosa [place] Throat Throat Exam: Oral Mucosa [place] & Moist Neck Neck Exam: Neck Supple, Trachea Midline Pulmonary Resp Exam: Clear Bilaterally, No Distress, Decreased Bases Cardiology CV Exam: Regular Gastrointestinal/Abdomen GI Exam: Soft, Bowel Sounds Present, Positive Bowel Movement, Non-Distended GI Remarks abd. with incisions bandaids c/d/i Musculoskeletal MS Exam: Joints Intact Integumentary Skin Exam: Warm, Dry Extremeties Extremities Exam: No Edema, Pedal Pulses Palpable Neurologic Neuro Exam: Alert, Awake, Oriented, Speech Clear, Moving All Extremities, No Focal Deficits Psychiatric Psych Exam: Appropriate Responses VTE Prophylaxis VTE Prophylaxis Meds: Heparin PUD Prophylasis PUD Prophylaxis: Protonix Assessment/Plan Assessment/Plan 1.Abdominal pain, + cholelithiasis, Choledocholithiasis 2. Gastroesophageal reflux disease. 3. Diabetes type 2. 4. Hypertension. 5. Gout. 6. Social ETOH dependence. 7. Fever, tachycardia, leukopenia PLAN S/P ERCP 09/04 CBD dilatation and stone removal tolerated well T bile 1.8 appreciate GI input minimal pain GS also following S/P lab cady 09/05 findings -distended gallbladder, very inflamed, large gallstones post op care, doing well, eating, had BM BRIAN in place, poss removal later today afebrile continue abx Diarrhea, ? abx induced, r/o cdiff no more diarrhea stool for cdiff if it re-occurs Hypokalemia resolved now BP management, continue home meds stable Accuchecks AC/HS with ISS SCDs/Heparin for DVT prophylaxis PPI for GI prophylaxis labs reviewed stable post op doing well poss dc today if surgery clears f/u surgery, GI, pcp diet-heart healthy activity- as tolerated, no heavy lifting. May return to work in 4-5 days D/W RN D/W Dr. Nguyễn D/W pt and family This patient was seen by myself and Dr. Nguyễn, this note is written on his behalf. Karen Greenberg September 06, 2016 12:05
[2016-09-06] MEDS ORDERED: NORC5TAB PO (12:45)
[2016-09-06] MEDS: SODIUM CHLORIDE 0.9% FLUSH 10 ML FLUSH IV FLUSH PRN (13:32)
[2016-09-06 13:52] LABS: ALKALINE PHOSPHATASE 114 U/L (45-117); ALT (GPT) 128 U/L (12-78); ANION GAP 11 MEQ/L (5-15); AST (GOT) 64 U/L (15-37); BICARBONATE 24.6 MEQ/L (21.0-32.0); BLOOD UREA NITROGEN 20 MG/DL (7-18); CHLORIDE 101 MEQ/L (98-107); GLOMERULAR FILTRATION RATE 63 ML/MIN (>89); POTASSIUM 3.9 MEQ/L (3.5-5.1); SODIUM (NA) 137 MEQ/L (136-145); TOTAL BILIRUBIN ADULT 0.5 MG/DL (0.2-1.0)
--- NOTE | 2016-09-06 14:50 | HHI.DS ---
Discharge Summary Admission Date September 02, 2016 at 19:34 Discharge Date: September 06, 2016 Admitting Diagnosis acute cholecystitis, cholelithiasis (1) Acute cholecystitis (2) Cholelithiasis (3) Thrombocytopenia (4) Diabetes 1.5, managed as type 2 (5) Gout (6) GERD (gastroesophageal reflux disease) (7) HTN (hypertension) CBC/BMP: 09/06/16 0637 09/06/16 1312 Significant Findings Laboratory Tests Test 09/04/16 09/05/16 09/05/16 09/05/16 04:26 04:45 05:35 15:44 White Blood Count 3.7 TH/MM3 (4.0-11.0) Hemoglobin 12.5 GM/DL 11.9 GM/DL 11.1 GM/DL (13.0-17.0) (13.0-17.0) (13.0-17.0) Hematocrit 38.6 % 35.2 % 32.9 % (39.0-51.0) (39.0-51.0) (39.0-51.0) Platelet Count 113 TH/MM3 68 TH/MM3 91 TH/MM3 (150-450) (150-450) (150-450) Neutrophils (%) (Auto) 91.0 % 87.9 % 82.4 % (16.0-70.0) (16.0-70.0) (16.0-70.0) Lymphocytes (%) (Auto) 6.7 % 5.3 % (9.0-44.0) (9.0-44.0) Lymphocytes # (Auto) 0.3 TH/MM3 0.4 TH/MM3 0.9 TH/MM3 (1.0-4.8) (1.0-4.8) (1.0-4.8) Total Bilirubin 3.5 MG/DL 1.8 MG/DL (0.2-1.0) (0.2-1.0) Direct Bilirubin 1.4 MG/DL (0.0-0.2) Indirect Bilirubin 2.1 MG/DL (0.0-0.8) Aspartate Amino Transf 65 U/L (15-37) 88 U/L (15-37) (AST/SGOT) Alanine Aminotransferase 233 U/L (12-78) 175 U/L (12-78) (ALT/SGPT) Alkaline Phosphatase 209 U/L 151 U/L (45-117) (45-117) Albumin 2.6 GM/DL 2.2 GM/DL (3.4-5.0) (3.4-5.0) Lipase 57 U/L (73-393) Urine Turbidity HAZY (CLEAR) Urine Protein 30 mg/dL (NEG-TRACE) Urine Ketones TRACE mg/dL (NEG) Urine Occult Blood MOD (NEG) Urine Bilirubin SMALL (NEG) Urine Mucus FEW /lpf (OCC) Red Blood Count 4.32 MIL/MM3 3.99 MIL/MM3 (4.50-5.90) (4.50-5.90) Band Neutrophils % 35 % (0-6) 23 % (0-6) Lymphocytes % 2 % (9-44) Metamyelocytes 7 % (0-1) Platelet Estimate LOW (NORMAL) LOW (NORMAL) Potassium Level 2.9 MEQ/L (3.5-5.1) Blood Urea Nitrogen 21 MG/DL (7-18) 22 MG/DL (7-18) Estimat Glomerular Filtration 57 ML/MIN (>89) 56 ML/MIN (>89) Rate Random Glucose 154 MG/DL 195 MG/DL (74-106) (74-106) Calcium Level 8.2 MG/DL (8.5-10.1) Neutrophils # (Auto) 7.8 TH/MM3 (1.8-7.7) Toxic Vacuolation PRESENT (NONE SEEN) Dohle Bodies PRESENT (NONE SEEN) Platelet Morphology Comment ENLARGED (NORMAL) Creatinine 1.31 MG/DL (0.60-1.30) Test 09/06/16 09/06/16 06:37 13:12 Red Blood Count 3.81 MIL/MM3 (4.50-5.90) Hemoglobin 10.2 GM/DL (13.0-17.0) Hematocrit 31.3 % (39.0-51.0) Mean Corpuscular Hemoglobin 26.8 PG (27.0-34.0) Platelet Count 63 TH/MM3 (150-450) Blood Urea Nitrogen 21 MG/DL (7-18) 20 MG/DL (7-18) Estimat Glomerular Filtration 68 ML/MIN (>89) 63 ML/MIN (>89) Rate Random Glucose 270 MG/DL 305 MG/DL (74-106) (74-106) Magnesium Level 2.6 MG/DL (1.5-2.5) Aspartate Amino Transf 64 U/L (15-37) (AST/SGOT) Alanine Aminotransferase 128 U/L (12-78) (ALT/SGPT) Albumin 2.0 GM/DL (3.4-5.0) Imaging Last Impressions GI Procedure 09/04/16 0000 Signed Impressions: Service Date/Time: Sunday, September 04, 2016 10:09 - CONCLUSION: ERCP as above. Robby Barajas MD Chest X-Ray 09/04/16 0000 Signed Impressions: Service Date/Time: Sunday, September 04, 2016 13:51 - CONCLUSION: 1. Probable large hiatal hernia. 2. No acute focal pulmonary infiltrate or pulmonary vascular congestion. Ty Randle MD Cholangiopancreatography MRI 09/03/16 0000 Signed Impressions: Service Date/Time: Saturday, September 03, 2016 13:50 - CONCLUSION: Gallstone with gallbladder wall thickening and surrounding inflammatory changes. At least one common duct stone. Nonspecific T2 hyperintense lesion in the dome of the liver warrants followup and further evaluation, ideally with multiphase contrasted MRI. This can be accomplished on an elective basis. Robby Barajas MD Gall Bladder Ultrasound 09/02/16 0000 Signed Impressions: Service Date/Time: Friday, September 02, 2016 18:07 - CONCLUSION: 1. Large stone at the gallbladder neck appears impacted there. There is gallbladder wall thickening and trace pericholecystic fluid but no sonographic Martinez sign. 2. Distended common bile duct, exact etiology uncertain. I don't clearly see a ductal stone. 3. Nonspecific mild hepatomegaly. Robby Tavares MD Hospital Course This is a pleasant 55-year-old white male who had been in his usual state of health up until Friday. The patient states that he initially thought he had food poisoning from the [place] due to acute onset of nausea and vomiting. He states that he has vomited for the past two days and has continued to have right upper quadrant epigastric pain. The patient tried to drink some kati bhumi and eat breakfast the day of admission but was unable to keep anything down. The patient denies any diarrhea or constipation. Denies any headache. Denies any chest pain. No shortness of breath. No recent change in diet or activity. The patient denies any previous history of gallbladder disease or pain. He does note that he had a work-up on his heart back several years ago but they found no coronary artery disease. Evaluated in the ED and found with: LABORATORY WBC count 8.8, RBC 4.61, hemoglobin 12.5, originally 13.2 in the ER, hematocrit 37.9, platelet count originally 160 in the ER now 143, neutrophil count 79.6, monocyte count 10.1. INR is 0.9. Sodium 136, potassium 3.5, chloride 101, carbon dioxide 26.6, BUN 6, creatinine 0.83, GFR 95, glucose 181, calcium 8.6, total creatinine kinase 47, troponin less than 0.03 x3, lipase 80, albumin 3.5, total protein 7.9. IMAGING Gallbladder ultrasound shows a large stone at the gallbladder neck, appears impacted. There is a gallbladder wall thickening, trace pericholecystic fluid but no Martinez's sign. Distended common bile duct, exact etiology uncertain. There is not a ductal stone seen. Nonspecific mild hepatomegaly. Pt. was admitted for: 1. Acute cholecystitis and obstruction, + cholelithiasis, Choledocholithiasis 2. Gastroesophageal reflux disease. 3. Diabetes type 2. 4. Hypertension. 5. Gout. 6. Liver lesion 7. Thrombocytopenia 8. Fever, tachycardia, leukopenia During the course of the hospitalization, the following took place: pt. admitted, put on IVF, pain management, accuchecks with ISS Labs monitored. Consulted GI, further work up recommended S/P ERCP 5/3 CBD dilatation and stone removal tolerated well procedure T bili monitored, trending down Gen surgery consulted, recommended lap cady after ERCP. S/P lab cady 5/4 findings -distended gallbladder, very inflamed, large gallstones post op care, doing well, eating, had BM BRIAN in place, was removed cleared for discharge Did have fever, ? gallbladder, CXR okay continued on abx, fever subsided, no cough, no sputum Diarrhea, ? abx induced, r/o cdiff no more diarrhea stool for cdiff if it re-occurs Hypokalemia-replaced resolved now BP management, continue home meds stable SCDs/Heparin for DVT prophylaxis PPI for GI prophylaxis labs reviewed stable post op doing well Cleared by GI, recommended f/u as OP for further imaging to evaluate liver lesions recommended multiphase contrasted MRI outpatient. AFP marker done, normal Cleared by surgery as well Stable for dc home f/u surgery, GI, pcp diet-heart healthy activity- as tolerated, no heavy lifting. May return to work in 4-5 days Pt Condition on Discharge: Stable Discharge Disposition: Discharge Home Discharge Instructions DIET: Follow Instructions for: Heart Healthy Diet, Diabetic Diet Fluid Restrictions: none Activities you can perform: Weight Bearing as Luis Other Activity Instructions: no alcohol Follow up Referrals: Gastroenterology - 2 Weeks @ [facility] PCP Follow-up - 1 Week Surgical - 3 Weeks New Medications: Hydrocodone-Acetaminophen (Custar) 5-325 mg Tab 1 TAB PO Q6H PRN PAIN #20 Ref 0 TAB Continued Medications: Allopurinol (Allopurinol) 300 Mg Tab 300 MG PO DAILY Gout #30 Ref 0 TAB Amlodipine (Amlodipine) 5 Mg Tab 5 MG PO DAILY Blood Pressure Management #30 Ref 0 TAB Lisinopril (Lisinopril) 20 Mg Tab 20 MG PO DAILY #30 Ref 0 TAB Metformin (Metformin) 500 Mg Tab 500 MG PO BIDPC With meals Blood Sugar Management #60 Ref 0 TAB Omeprazole (Omeprazole) 40 Mg Cap 40 MG PO DAILY #30 Ref 0 CAP Karen Greenberg September 06, 2016 14:50
[2016-09-06 16:00] VITALS: BP 122/85; PULSE 76; RESP 16; TEMP 97.2; O2SAT 97
--- NOTE | 2016-09-06 16:48 | HHI.PR ---
Subjective Subjective Notes Resting in bed Pain controlled Objective Vitals/I&O Vital Signs Date Time Temp Pulse Resp B/P Pulse Ox O2 Delivery O2 Flow Rate FiO2 09/06/16 12:00 97.8 75 14 133/87 96 09/05/16 18:09 21 09/05/16 18:00 Room Air 09/04/16 11:15 2 Labs Laboratory Tests Test 09/06/16 09/06/16 06:37 13:12 White Blood Count 6.8 Red Blood Count 3.81 Hemoglobin 10.2 Hematocrit 31.3 Mean Corpuscular Volume 82.2 Mean Corpuscular Hemoglobin 26.8 Mean Corpuscular Hemoglobin 32.6 Concent Red Cell Distribution Width 15.1 Platelet Count 63 Mean Platelet Volume 10.0 Sodium Level 137 137 Potassium Level 4.2 3.9 Chloride Level 103 101 Carbon Dioxide Level 26.1 24.6 Anion Gap 8 11 Blood Urea Nitrogen 21 20 Creatinine 1.12 1.19 Estimat Glomerular Filtration 68 63 Rate Random Glucose 270 305 Calcium Level 8.6 8.6 Magnesium Level 2.6 Lipase 131 Total Bilirubin 0.5 Aspartate Amino Transf 64 (AST/SGOT) Alanine Aminotransferase 128 (ALT/SGPT) Alkaline Phosphatase 114 Total Protein 6.8 Albumin 2.0 Tumor Marker Alpha Fetoprotein 3.5 Radiology Last 48 hours Impressions Gall Bladder Ultrasound 09/02/16 0000 Signed Impressions: Service Date/Time: Friday, September 02, 2016 18:07 - CONCLUSION: 1. Large stone at the gallbladder neck appears impacted there. There is gallbladder wall thickening and trace pericholecystic fluid but no sonographic Martinez sign. 2. Distended common bile duct, exact etiology uncertain. I don't clearly see a ductal stone. 3. Nonspecific mild hepatomegaly. Robby Tavares MD Cardiovascular: Regular Lungs: Clear Abdomen: Other (lap sites c/d/i; BRIAN in place ) Extremities: No edema A/P Assessment and Plan 55 year old male with acute cholecystitis; elevated liver enzymes and CBD stone -POD1 lap cady -Tolerating diet -Pain controlled -DC BRIAN -GS clear for DC -Follow up with Dr. Pierson in 10-14 days -No heavy pulling pushing or lifting Attending Statement patient seen at bedside doing well reg diet po pain control ok for heparin dvt ppx d/c planning Attestation The exam, history, and the medical decision-making described in the above note were completed with the assistance of the mid-level provider. I reviewed and agree with the findings presented. I attest that I had a [id number] encounter with the patient on the same day, and personally performed and documented my assessment and findings in the medical record. Kizzy Moody September 06, 2016 16:48 Jacky Pierson MD September 12, 2016 22:12
== END 2016-09-06 18:32 | disposition home or self-care (01) | DRG 417 ==
LOC: NEPC 14:25 → NEDA 19:34 → N06A 20:24
PROVIDERS: ADMIT Specialist; ATTEND Specialist
PROC: 0F798ZZ Dilation of Common Bile Duct, Via Natural or Artificial Opening Endoscopic (ICD-10-PCS; 2016-09-04)
PROC: 0FC98ZZ Extirpation of Matter from Common Bile Duct, Via Natural or Artificial Opening Endoscopic (ICD-10-PCS; 2016-09-04)
PROC: 0FT44ZZ Resection of Gallbladder, Percutaneous Endoscopic Approach (ICD-10-PCS; principal; 2016-09-05 14:32)
DX: K80.67 Calculus of gallbladder and bile duct with acute and chronic cholecystitis with obstruction (principal); K85.10 Biliary acute pancreatitis without necrosis or infection; D69.6 Thrombocytopenia, unspecified; R16.0 Hepatomegaly, not elsewhere classified; D72.819 Decreased white blood cell count, unspecified; E11.9 Type 2 diabetes mellitus without complications; I10 Essential (primary) hypertension; M10.9 Gout, unspecified; E87.6 Hypokalemia; R00.0 Tachycardia, unspecified; K76.9 Liver disease, unspecified; K21.9 Gastro-esophageal reflux disease without esophagitis; K66.0 Peritoneal adhesions (postprocedural) (postinfection); F10.20 Alcohol dependence, uncomplicated
CPT/HCPCS: 71010; 74181; 74330; 76377; 76705; 80048; 80053; 80076; 81001; 82105; 82550; 82948; 83690; 83735; 84484; 85007; 85025; 85027; 85610; 86704; 86708; 86803; 87340; 88304; 93005; 96361; 96374; 96375; C1769; J0690; J1644; J1815; J2250; J2270; J2370; J2405; J2543; J2710; J3010; J3480; J7030; J7050; J7120; Q9967

== ENCOUNTER 2016-09-10 04:54 | Inpatient (IN) | payer OTHER ==
[~2016-09-10] VITALS: Ht 172.7 cm; Wt 89.2 kg
[2016-09-10] VITALS (7 sets, daily range): BP systolic 119–147; BP diastolic 69–82; PULSE 81–97; RESP 16–20; TEMP 99–102.1; O2SAT 94–97
[~2016-09-10 04:54] MED LIST: ALLO300T2 PO; AMLO5TAB2 PO; LISI-515 PO; METF500T PO; NORC5TAB PO; OMEP40CA2 PO
[2016-09-10] MEDS ORDERED: ONDANSETRON HCL 4 MG/2 ML VIAL IV ONE (05:30)
[2016-09-10] MEDS ORDERED: ACETAMINOPHEN 325 MG TAB PO ONE (05:30)
[2016-09-10] MEDS ORDERED: SODIUM CHLOR 0.9% 1000 ML INJ 1,000 ML IV ONE ×3 (05:30→06:30)
--- NOTE | 2016-09-10 05:36 | PD ---
HPI Chief Complaint: Fever Time Seen by Provider: 05:03 Travel History International Travel<30 days: No Contact w/Intl Traveler<30days: No Traveled to known affect area: No History of Present Illness HPI The patient is a 55 year old male who presents to the [facility] emergency department with a history of recent admission to the hospital from September 02 through September 06 related to nausea and vomiting associated with abdominal pain. The patient's workup revealed acute cholecystitis with gallstones and distention of the common bile duct. The patient was admitted and underwent endoscopy and ERCP with common bile duct dilatation and stone removal. On September 05 the patient underwent laparoscopic cholecystectomy. The patient had a BRIAN drain in place that was removed prior to discharge on September 06. The patient did have a fever during his hospitalization. He was treated with antibiotic in the hospital, however he was not discharged home on any antibiotic. The patient denies having any productive cough. He reports that the central upper abdominal wound did have some erythema surrounding it, however it has not worsened with time. He reports that last night after eating, 30 minutes later he began to have pain in the right upper quadrant of the abdomen that lasted for 30 minutes and was sharp in character. He denies having any dysuria, urinary frequency, or urinary urgency. He reports that in the night this evening he awoke with tremors and fever. The patient was noted on arrival to have a temperature of 102.9. The patient denies having any lower extremity edema, calf pain, or erythema. The patient reports that he had a normal bowel movement prior to arrival. The patient denies having any congestion, neck pain , chest pain, shortness of breath,vomiting, diarrhea, or neurologic symptoms. [facility] Past Medical History Narrative Medical The patient's past medical history is significant for hypertension, acid reflux , diabetes mellitus, thrombocytopenia noted during his last hospital admission. Cancer: No Cardiovascular Problems: No Diabetes: Yes Patient Takes Glucophage: Yes Diminished Hearing: No Genitourinary: Yes (GALLSTONES) Hypertension: Yes Musculoskeletal: No Neurologic: No Reproductive: No Respiratory: No Tetanus Vaccination: Unknown Influenza Vaccination: No Past Surgical History Narrative Surgical The patient's past surgical history is significant for ERCP with common bile duct dilatation and stone removal, history of laparoscopic cholecystectomy, postop day #5 Abdominal Surgery: Yes (APPENDECTOMY) Ear Surgery: No Endocrine Surgery: No Eye Surgery: No Genitourinary Surgery: Yes (HERNIA REPAIR Xs 3, ) Gynecologic Surgery: No Oral Surgery: No Social History Alcohol Use: Yes (occ) Tobacco Use: No Substance Use: No Allergies-Medications (Allergen,Severity, Reaction): Coded Allergies: No Known Allergies (Unverified , 09/10/16) Reported Meds & Prescriptions Reported Meds & Active Scripts Active [place] (Hydrocodone-Acetaminophen) 5-325 mg Tab 1 Tab PO Q6H PRN Reported Omeprazole 40 Mg Cap 40 Mg PO DAILY Metformin (Metformin HCl) 500 Mg Tab 500 Mg PO BIDPC With meals Lisinopril 20 Mg Tab 20 Mg PO DAILY Amlodipine (Amlodipine Besylate) 5 Mg Tab 5 Mg PO DAILY Allopurinol 300 Mg Tab 300 Mg PO DAILY Review of Systems Except as stated in HPI: all other systems reviewed are Neg General / Constitutional: Positive: Fever, Chills Eyes: No: Visual changes HENT: No: Headaches, Congestion Cardiovascular: No: Chest Pain or Discomfort Respiratory: No: Shortness of Breath Gastrointestinal: Positive: Abdominal Pain, No: Nausea, Vomiting, Diarrhea, Hematemesis, Hematochezia, Constipation, Changes in Bowel Habits, Indigestion, Loss of Appetite Genitourinary: No: Urgency, Frequency, Dysuria Musculoskeletal: No: Pain Skin: No Rash Neurologic: No: Weakness, Focal Abnormalities, Coordination Problem, Change in Mentation, Slurred Speech, Sensory Disturbance Psychiatric: No: Depression Endocrine: No: Polydipsia Hematologic/Lymphatic: No: Easy Bruising Physical Exam Narrative General: The patient is a well-developed well-nourished male in no acute distress. Head and Neck exam: Head is normocephalic atraumatic. Eyes: EOMI, pupils are equal round and reactive to light. Nose: Midline septum with pink mucous membranes Mouth: Dentition unremarkable. Moist mucus membranes. Posterior oropharynx is not erythematous. No tonsillar hypertrophy. Uvula midline. Airway patent. Neck: No palpable lymphadenopathy. No nuchal rigidity. No thyromegaly. Cardiovascular: Sinus tachycardia in the 1 teens without murmurs, gallops, or rubs. No pulse deficit to the extremities and simultaneous auscultation and palpation of his radial artery. Lungs: Clear to auscultation bilaterally. No wheezes, rhonchi, or rales. Abdomen: Soft, with minimal postoperative discomfort with 4 wounds noted on the abdomen that had dressings in place. No guarding, rebound, or rigidity. Negative Martinez s sign. Normal bowel sounds are audible. The incision at the upper aspect of the abdomen in the center has an area of surrounding erythema and slight edema. No drainage is able to be expressed. A laparoscopic incision on the right side of the abdomen has no surrounding erythema, however it does have a scant amount of yellow drainage that was able to be expressed and was cultured. The drain site on the right side of the abdomen shows no evidence of drainage or erythema. The laparoscopic incision overlying the umbilicus appears to be without any signs of infection, no erythema, edema, or drainage. Extremities: No clubbing, cyanosis, or edema. 2+ pulses in all 4 extremities. No calf tenderness on palpation. Back: No spinous process tenderness to palpation. No costovertebral angle tenderness to palpation. Neurologic Exam: Grossly nonfocal. Data Data Last Documented VS Vital Signs Date Time Temp Pulse Resp B/P Pulse Ox O2 Delivery O2 Flow Rate FiO2 09/10/16 05:33 16 97 Room Air 09/10/16 05:07 95 139/82 09/10/16 04:57 102.1 Orders Electrocardiogram (09/10/16 05:18) Complete Blood Count With Diff (09/10/16 05:18) Comprehensive Metabolic Panel (09/10/16 05:18) Prothrombin Time / Inr (Pt) (09/10/16 05:18) Act Partial Throm Time (Ptt) (09/10/16 05:18) Blood Culture (09/10/16 05:18) Lipase (09/10/16 05:18) Urinalysis - C+S If Indicated (09/10/16 05:18) Wound Culture And Gram Stain (09/10/16 05:18) Chest, Single Ap (09/10/16 05:18) Iv Access Insert/Monitor (09/10/16 05:18) Ecg Monitoring (09/10/16 05:18) Oximetry (09/10/16 05:18) Lactic Acid Sepsis Protocol (09/10/16 05:18) Sodium Chlor 0.9% 1000 Ml Inj (Ns 1000 M (09/10/16 05:30) Ondansetron Inj (Zofran Inj) (09/10/16 05:30) Acetaminophen (Tylenol) (09/10/16 05:30) Ct Abd/Pel W Iv Contrast(Rout) (09/10/16 05:18) Sodium Chlor 0.9% 1000 Ml Inj (Ns 1000 M (09/10/16 06:30) Sodium Chlor 0.9% 1000 Ml Inj (Ns 1000 M (09/10/16 06:30) Piperacil-Tazo 3.375 Gm Premix (Zosyn 3. (09/10/16 06:30) Iohexol 350 Inj (Omnipaque 350 Inj) (09/10/16 06:21) Admit Order (Ed Use Only) (09/10/16 06:28) Labs Laboratory Tests Test 09/10/16 05:25 White Blood Count 7.9 TH/MM3 Red Blood Count 4.39 MIL/MM3 Hemoglobin 12.0 GM/DL Hematocrit 35.9 % Mean Corpuscular Volume 81.8 FL Mean Corpuscular Hemoglobin 27.2 PG Mean Corpuscular Hemoglobin 33.3 % Concent Red Cell Distribution Width 14.5 % Platelet Count 260 TH/MM3 Mean Platelet Volume 10.2 FL Neutrophils (%) (Auto) 86.8 % Lymphocytes (%) (Auto) 7.2 % Monocytes (%) (Auto) 5.4 % Eosinophils (%) (Auto) 0.2 % Basophils (%) (Auto) 0.4 % Neutrophils # (Auto) 6.9 TH/MM3 Lymphocytes # (Auto) 0.6 TH/MM3 Monocytes # (Auto) 0.4 TH/MM3 Eosinophils # (Auto) 0.0 TH/MM3 Basophils # (Auto) 0.0 TH/MM3 CBC Comment DIFF FINAL Differential Comment Prothrombin Time 10.6 SEC Prothromb Time International 1.0 RATIO Ratio Activated Partial 26.3 SEC Thromboplast Time Sodium Level 134 MEQ/L Potassium Level 3.4 MEQ/L Chloride Level 97 MEQ/L Carbon Dioxide Level 24.0 MEQ/L Anion Gap 13 MEQ/L Blood Urea Nitrogen 13 MG/DL Creatinine 1.11 MG/DL Estimat Glomerular Filtration 68 ML/MIN Rate Random Glucose 340 MG/DL Lactic Acid Level 3.3 mmol/L Calcium Level 8.7 MG/DL Total Bilirubin 1.2 MG/DL Aspartate Amino Transf 38 U/L (AST/SGOT) Alanine Aminotransferase 145 U/L (ALT/SGPT) Alkaline Phosphatase 222 U/L Total Protein 7.0 GM/DL Albumin 2.2 GM/DL Lipase 444 U/L [facility] Medical Decision Making Medical Screen Exam Complete: Yes Emergency Medical Condition: Yes Medical Record Reviewed: Yes Interpretation(s) Last Impressions Chest X-Ray 09/10/16517 Signed Impressions: Service Date/Time: Saturday, September 10, 2016 05:32 - CONCLUSION: 1. No acute cardiopulmonary disease. 2. Hiatal hernia. Shane Kennedy Jr., MD Abdomen/Pelvis CT 09/10/16517 Signed Impressions: Service Date/Time: Saturday, September 10, 2016 06:17 - CONCLUSION: 1. There is a 5.7 x 2.5 cm collection involving the gallbladder fossa. This is a mixture of air and fluid but predominantly air. 2. Mild intrahepatic ductal dilatation involving the left lobe of the liver. 3. Left-sided hydrocele partially seen. 4. Small volume ascites. 5. Small bilateral pleural effusions. Shane Kennedy Jr., MD Differential Diagnosis Intra-abdominal abscess status post surgery, versus C. difficile colitis, versus pneumonia postop, versus DVT, versus PE, versus viral syndrome, versus pyelonephritis Narrative Course During the course of the patients emergency department visit, the patients history, examination, and differential diagnosis were reviewed with the patient. The patient had IV access obtained and blood work sent for analysis. The patient was placed on a hospital monitor with oximetry and blood pressure monitoring. The patient's electronic medical record was reviewed for his recent hospital course. The patient was initially provided Tylenol for fever, normal saline 1 L IV fluid bolus, Zofran 4 mg IV. The patient was started on broad-spectrum antibiotics to include Zosyn 3.[address] scan of the abdomen and pelvis was ordered. A chest x-ray was ordered. The patients laboratory studies were reviewed and remarkable for a white count of 7.9, hemoglobin 12, platelets 260 with 86.8 neutrophils, CMP is remarkable for a sodium of 134, potassium 3.4, chloride 97, glucose 340, total bilirubin 1.2, AST 38, ALT 145, alkaline phosphatase 222 with a lipase of 444 which is increased compared to a normal lipase at 131 on September 06. PT PTT within normal limits. Radiology studies were reviewed and remarkable for a chest x-ray that shows no acute abnormality. The patient will be admitted to the hospital for postop fever, pancreatitis status post laparoscopic cholecystectomy. CT scan of the abdomen and pelvis revealed a mixture of air and fluid seen within the gallbladder fossa that measures 5.7 x 2.5 cm. There is a mild ductal dilatation involving the left lobe of the liver. Left-sided hydrocele partially seen, small volume ascites, small bilateral pleural effusions. The patient's case was discussed with Dr. Pierson, the patient's surgeon at approximately 7:05 AM. He did agree to see the patient in consultation. The patients results were discussed with the patient, including the plan of care. I explained that further testing and/ or monitoring is indicated based on the patients history, examination, and/ or laboratory findings. Therefore, I recommended admission for additional evaluation. The patient expressed understanding and was agreeable with this plan. The patient was admitted to the hospital in stable condition and sent to a bed under the care of [facility]. Sepsis Criteria SIRS Criteria (2 or more): Temp > 100.9 or < 96.8, Heart rate over 90 Physician Communication Physician Communication The patient's case was discussed with Robby Beal who did agree to admit the patient to the [facility] group service. Diagnosis Primary Impression: Postoperative fever Additional Impression: Pancreatitis Qualified Code: K85.90 - Acute pancreatitis, unspecified complication status, unspecified pancreatitis type Admitting Information Admitting Physician Requests: it Marysol Llanes MD September 10, 2016 05:36
[2016-09-10 05:40] LABS: AUTOMATED NEUTROPHIL # 6.9 TH/MM3 (1.8-7.7); BASOPHIL % 0.4 % (0.0-2.0); EOSINOPHIL % 0.2 % (0.0-4.0); HEMATOCRIT 35.9 % (39.0-51.0); HEMO FLAGS DIFF FINAL; LYMPH % 7.2 % (9.0-44.0); LYMPHOCYTE # 0.6 TH/MM3 (1.0-4.8); MEAN CELL VOLUME 81.8 FL (80.0-100.0); MEAN CORPUSCULAR HEMOGLOBIN 27.2 PG (27.0-34.0); MEAN CORPUSCULAR HGB CONC 33.3 % (32.0-36.0); MONO % 5.4 % (0.0-8.0); NEUT % 86.8 % (16.0-70.0); PLATELET COUNT 260 TH/MM3 (150-450); RED BLOOD COUNT 4.39 MIL/MM3 (4.50-5.90); RED CELL DISTRIBUTION WIDTH 14.5 % (11.6-17.2); WHITE BLOOD COUNT 7.9 TH/MM3 (4.0-11.0)
[2016-09-10 05:51] LABS: APTT (PATIENT) 26.3 SEC (24.3-30.1); PROTHROMBIN TIME - PATIENT 10.6 SEC (9.8-11.6)
[2016-09-10 05:57] LABS: ALT (GPT) 145 U/L (12-78); ANION GAP 13 MEQ/L (5-15); AST (GOT) 38 U/L (15-37); BLOOD UREA NITROGEN 13 MG/DL (7-18); CHLORIDE 97 MEQ/L (98-107); GLOMERULAR FILTRATION RATE 68 ML/MIN (>89); POTASSIUM 3.4 MEQ/L (3.5-5.1); SODIUM (NA) 134 MEQ/L (136-145)
[2016-09-10 06:00] LABS: ALKALINE PHOSPHATASE 222 U/L (45-117); TOTAL BILIRUBIN ADULT 1.2 MG/DL (0.2-1.0)
--- NOTE | 2016-09-10 06:14 | RADRPT ---
EXAM DATE/TIME: 09/10/2016 05:32 [facility] COMPARISON: CHEST SINGLE AP, September 04, 2016, 13:51. INDICATIONS : Chest pain. MEDICAL HISTORY : Hypertension. Diabetes. SURGICAL HISTORY : Appendectomy. Hernia repair. ENCOUNTER: Initial ACUITY: 1 day PAIN SCORE: 0/10 LOCATION: Bilateral chest FINDINGS: A single view of the chest demonstrates the lungs to be symmetrically aerated without evidence of mas s, infiltrate or effusion. Hiatal hernia. The cardiomediastinal contours are unremarkable. Osseous s tructures are intact. CONCLUSION: 1. No acute cardiopulmonary disease. 2. Hiatal hernia. Shane Kennedy Jr., MD on September 10, 2016 at 6:12 Board Certified Radiologist. This report was verified electronically.
[2016-09-10] MEDS ORDERED: IOHEXOL 350 MG/ML 10 ML VIAL (for RAD DIAG) IV ONE (06:21)
[2016-09-10] MEDS ORDERED: PIPERACIL-TAZO 3.375 GM PREMIX 50 ML IV ONE (06:30)
--- NOTE | 2016-09-10 06:52 | RADRPT ---
EXAM DATE/TIME: 09/10/2016 06:17 [facility] COMPARISON: No previous studies available for comparison. INDICATIONS : Cholcystectomy on 09/02. Fever and pain x1day. IV CONTRAST: 95 cc Omnipaque 350 (iohexol) IV ORAL CONTRAST: No oral contrast ingested. RADIATION DOSE: 9.71 CTDIvol (mGy) MEDICAL HISTORY : Hypertension. Diabetes mellitus type 2. SURGICAL HISTORY : Cholecystectomy. Appendectomy.Hernia repair. ENCOUNTER: Initial ACUITY: 1 day PAIN SCALE: 5/10 LOCATION: Right upper quadrant TECHNIQUE: Volumetric scanning of the abdomen and pelvis was performed. Using automated exposure control and ad justment of the mA and/or kV according to patient size, radiation dose was kept as low as reasonably achievable to obtain optimal diagnostic quality images. FINDINGS: LOWER LUNGS: A small right pleural effusion with associated passive atelectasis. Tiny left effusion. Hiatal hernia . LIVER: The gallbladder is surgically absent. A mixture of air and fluid is seen within the gallbladder fossa . This measures 5.7 x 2.5 cm. And is not thickwalled. It is largely air in nature. There is mild duct al dilatation involving the left lobe of the liver. No intrahepatic or extrahepatic ductal dilatation is otherwise seen. SPLEEN: Normal size without lesion. PANCREAS: Within normal limits. KIDNEYS: Normal in size and shape. There is no mass, stone or hydronephrosis. ADRENAL GLANDS: Within normal limits. VASCULAR: There is no aortic aneurysm. BOWEL/MESENTERY: A few loops of mildly distended small bowel are noted within the left upper quadrant. The remaining b owel structures are unremarkable. A small amount of fluid is seen tracking down both paracolic gutter s. No free air. ABDOMINAL WALL: Within normal limits. RETROPERITONEUM: There is no lymphadenopathy. BLADDER: No wall thickening or mass. REPRODUCTIVE: Within normal limits. INGUINAL: There is no lymphadenopathy or hernia. MUSCULOSKELETAL: Within normal limits for patient age. CONCLUSION: 1. There is a 5.7 x 2.5 cm collection involving the gallbladder fossa. This is a mixture of air and f luid but predominantly air. 2. Mild intrahepatic ductal dilatation involving the left lobe of the liver. 3. Left-sided hydrocele partially seen. 4. Small volume ascites. 5. Small bilateral pleural effusions. Shane Kennedy Jr., MD on September 10, 2016 at 6:48 Board Certified Radiologist. This report was verified electronically.
[2016-09-10] MEDS ORDERED: ONDANSETRON HCL 4 MG/2 ML VIAL IVP PRN (07:00)
[2016-09-10] MEDS ORDERED: NALOXONE HCL 0.4 MG/ML AMP IV PRN (07:00)
[2016-09-10] MEDS ORDERED: SODIUM CHLORIDE 0.9% FLUSH 10 ML FLUSH IV FLUSH PRN (07:00)
[2016-09-10] MEDS ORDERED: INSULIN HUMAN REGULAR 1,000 UNITS/10 ML VIAL SQ ONE ×2 (07:15→09:00)
[2016-09-10 07:34] LABS: LACTIC ACID GHOST NOT REPORTABLE
[2016-09-10] MEDS: SODIUM CHLOR 0.9% 1000 ML INJ 1,000 ML IV SCH ×2 (08:38→22:48)
[2016-09-10] MEDS: SODIUM CHLORIDE 0.9% FLUSH 10 ML FLUSH IV FLUSH SCH ×2 (09:00→22:47)
[2016-09-10] MEDS ORDERED: POTASSIUM CHLOR 20 MEQ PREMIX 100 ML IV SCH (10:00)
[2016-09-10] MEDS ORDERED: SIMETHICONE 80 MG CHEWABLE TAB CHEW ONE (10:00)
--- NOTE | 2016-09-10 10:04 | MH ---
cc: NADIA MORRISON DATE OF ADMISSION 09/10/2016 DATE OF 1960 CHIEF COMPLAINT Fever, the patient is status post ERCP and cholecystectomy TRAVEL IN THE LAST 30 DAYS None HISTORY OF PRESENT ILLNESS This is a pleasant 55 year-old white male who was recently in [facility] on September 02 through September 06 with abdominal pain. He was found to have acute cholecystitis and underwent an ERCP and a laparoscopic cholecystectomy. The patient's BRIAN drain was removed prior to discharge on September 06. He went home with his postop instructions. The patient had a minimal appetite, but states that has been picking up. He also has had some gas and some bloating, but that also seems to wax and wane. Yesterday the patient noted some increased right and mid quadrant pain after he ate. The patient went and laid down to rest. He stated that the pain was sharp with a stabbing sensation and lasted approximately 30 minutes. The patient also had noted a low grade fever during the evening and called and spoke to someone at the hospital for advise. He was told to take a leave to see if it would relieve his symptoms. The patient was awoken last night with a temperature of 102.9. He was brought to the emergency room per his fiance for further evaluation. The patient denies any chest pain, shortness of breath or headache. No vomiting, but he has had some symptoms of nausea off and on. The patient's bowels have moved twice since September 06. He is positive for some gas and bloating. He also states that it hurts to take a deep breath in his right upper quadrant. The patient denies any productive cough. Small incisions on his abdomen are closed intact. He does have some very mild minimal erythema noted on the large central incision and a very minimal amount on one of the right upper quadrant incisions. The patient is a fair historian. His fiance is with him and assisting with his current history and information. MEDICAL HISTORY 1. Hypertension 2. Diabetes mellitus type 2 3. GERD 4. Recent cholecystitis with gallstones and distention of the common bile duct. The patient does take Glucophage. PAST SURGICAL HISTORY 1. Appendectomy 2. Hernia repair times three. 3. Recent laparoscopic cholecystectomy and ERCP. ALLERGIES No known allergies. MEDICATIONS 1. Omeprazole 2. Metformin 3. Lisinopril 4. Amlodipine 5. Allopurinol 6. Pain meds SOCIAL HISTORY The patient is currently engaged. Nafisa lives in the home with him. No tobacco use. No illicit drug use, but occasional social alcohol use. The patient denies any alcohol since his discharge from the hospital. REVIEW OF SYSTEMS Positives were noted in the HPI which includes his mid and upper right quadrant pain. Some gas and bloating, nausea, fever of 102.9 with chills. Pain with inspiration, otherwise systems are negative or unremarkable. PHYSICAL EXAM VITAL SIGNS: Temperature is now 99.9, pulse 97, respirations 18, blood pressure 119/73, O2 sat 96% on room air. GENERAL: This is a well-nourished, well-developed white male who looks to be his stated age resting in the bed. He is alert, oriented and cooperative. He is experiencing some mild right upper quadrant pain. SKIN: [place], warm and dry. HEAD, EYES, EARS, NOSE, AND THROAT: Atraumatic, normocephalic. PERRLA at 3. Mucous membranes are pink and moist. NECK: Supple. CARDIOVASCULAR: S1 and S2, regular rate and rhythm. No murmurs, rubs or gallops. LUNGS: Essentially clear anteriorly and posteriorly, but no wheezes, rales or rhonchi. He does have some minimal low volume sounds in his bases. ABDOMEN: Soft. He does have four wounds on his abdomen from his laparoscopic surgery. The wounds are closed. No evidence of drainage. Mild or minimal erythema noted at the large mid abdomen and right upper abdomen incision. Bowel sounds are soft, but active. EXTREMITIES: Moves all extremities with purpose. Equal hand director internal control. No edema. Pulses are intact. NEUROLOGIC: He is alert and oriented. Speech is clear and appropriate. PSYCHIATRIC: Mood, judgment and insight are normal. No acute anxiety. DIAGNOSTIC DATA WBC count 7.9, RBC 4.39, hemoglobin 12, hematocrit 35.9, platelet count 260, neutrophil percentage auto 86.8, lymphocytes 7.2. Sodium 134, potassium 3.4, chloride 97, CO2 24, amnion gap 13, BUN 13, creatinine 1.11, GFR 68, glucose 240, lactic acid 3.3, calcium 8.7, total bilirubin 1.2, AST 38, ALT 145, alkaline phosphatase 222, albumin 2.2, lipase 444, total protein is 7, PT-INR is 1. IMAGING STUDIES Show chest x-ray to be no acute disease. Abdominopelvic CT shows a 5.7 to 2.5 cm collection involving the gallbladder fossa with some mixture of air and fluid, but predominantly air, mild intrahepatic ductal dilation of the left lobe of the liver, left sided hydrocele partially seen, small volume of ascites, small bilateral pleural effusions. ASSESSMENT AND PLAN 1. Possible acute pancreatitis 2. Possible ascending cholangitis 3. Anemia, mild 4. Lactic acid sepsis 5. Hyponatremia, mild 6. Hypokalemia, mild 7. History of hypertension and diabetes mellitus type 2 Uncontrolled 8. GERD PLAN 1. Our plan is to admit to inpatient status. 2. Vital signs will be q4. 3. The patient will be on bedrest and out of bed only with Assistance. 4. IV fluids for hydration. 5. We will replace his potassium. 6. In his IV fluids, we will replace his sodium. 7. We will reconcile his medications, include some as needed for pain, fever, nausea, vomiting and bowel regimen. 8. The patient was started on Zosyn IV q6. 9. We will consult surgery to re-evaluate this recent ERCP and Cholecystectomy, that will be general surgery. 10. Evaluate any other consult needs. 11. The patient is full code, full aggressive care. We will follow his medical needs, hospital course and we will recheck labs in the morning and will monitor his needs based on the findings during this hospital course. Dictated by OLY Arreaga Nadia Morrison MD JP/KELVIN /8:40 AM /9:32 AM PT SEEN AND EXAMINED ABOVE CHART REVIEWED INCLUDING MEDS LABS AND RAD DILAN AND NOTES DW PT YOGI ALDRIDGE ABOUT PLAN OF CARE YOGI NINO
[2016-09-10] MEDS: HEPARIN SODIUM - SQ 10,000 UNITS/ML VIAL SQ SCH ×2 (10:07→21:00)
[2016-09-10] MEDS: PANTOPRAZOLE SODIUM 40 MG VIAL IV PUSH SCH (10:40)
[2016-09-10] MEDS: HYDROmorphone HCL PF 1 MG/ML VIAL IV PRN ×3 (14:05→22:42)
[2016-09-10] MEDS: metroNIDAZOLE 500 MG INJ 100 ML IV SCH ×2 (14:07→18:28)
--- NOTE | 2016-09-10 14:50 | RADRPT ---
EXAM DATE/TIME: 09/10/2016 13:15 [facility] COMPARISON: CT ABDOMEN & PELVIS W CONTRAST, September 10, 2016, 6:17. MRCP W/O CONTRAST, September 03, 2016, 13:50. INDICATIONS : Pain. MEDICAL HISTORY : Hypertension. Diabetes mellitus type 2. SURGICAL HISTORY : Appendectomy. Cholecystectomy. Inguinal hernia repair. ENCOUNTER: Initial ACUITY: 2 day PAIN SCORE: 3/10 LOCATION: Abdomen TECHNIQUE: Multiplanar, multisequence magnetic resonance imaging of the abdomen was performed. High-resolution 3D dataset was utilized to reconstruct maximum-intensity projection (MIP) images. FINDINGS: INTRAHEPATIC BILE DUCTS: Within normal limits. No significant anatomical variant is present. EXTRAHEPATIC BILE DUCTS: The common bile duct measures 6 mm. No stone or filling defect is identified. GALLBLADDER: Status post cholecystectomy. Mixture of fluid and gas is again seen in the gallbladder fossa. LIVER: There is a loss of flow void in the left portal vein correlating with hypodensity seen on recent CT s uggesting left portal vein thrombosis. There is surrounding edema and mild mass effect on the central intrahepatic ducts of the left lobe. PANCREAS: The main pancreatic duct is normal in size. There is no significant anatomical variant. Signal inte nsity is within normal limits. No mass is visualized on this non-contrast exam. OTHER: The remaining visualized structures demonstrate no acute abnormality on this non-contrast exam. CONCLUSION: 1. Left portal vein thrombosis. 2. Intrahepatic and extrahepatic biliary ducts within normal limits in diameter. 3. Gas and fluid again seen in the gallbladder fossa. Status post cholecystectomy. Ryan Kim MD on September 10, 2016 at 14:39 Board Certified Radiologist. This report was verified electronically.
[2016-09-10] MEDS: PIPERACIL-TAZO 3.375 GM PREMIX 50 ML IV SCH ×2 (15:28→18:25)
--- NOTE | 2016-09-10 16:54 | HHI.PR ---
Subjective Subjective Notes Recent admission for gallstone pancreatitis with choledocholiasis s/p ERCP and lap cady. Pt did well improved and represents with abdominal pain and fever of 102. WBC normal, lipase 444, increased LFTs. Tbili 1.2. Pt with CT shows minimal pelvic fluid, and fluisd in gb fossa. Pt tolerated diet. Objective Vitals/I&O Vital Signs Date Time Temp Pulse Resp B/P Pulse Ox O2 Delivery O2 Flow Rate FiO2 09/10/16 16:28 99.0 88 20 128/72 94 09/10/16 07:53 Room Air 09/10/16 07:06 21 Labs Laboratory Tests Test 09/10/16 09/10/16 05:25 08:30 White Blood Count 7.9 Red Blood Count 4.39 Hemoglobin 12.0 Hematocrit 35.9 Mean Corpuscular Volume 81.8 Mean Corpuscular Hemoglobin 27.2 Mean Corpuscular Hemoglobin 33.3 Concent Red Cell Distribution Width 14.5 Platelet Count 260 Mean Platelet Volume 10.2 Neutrophils (%) (Auto) 86.8 Lymphocytes (%) (Auto) 7.2 Monocytes (%) (Auto) 5.4 Eosinophils (%) (Auto) 0.2 Basophils (%) (Auto) 0.4 Neutrophils # (Auto) 6.9 Lymphocytes # (Auto) 0.6 Monocytes # (Auto) 0.4 Eosinophils # (Auto) 0.0 Basophils # (Auto) 0.0 CBC Comment DIFF FINAL Differential Comment Prothrombin Time 10.6 Prothromb Time International 1.0 Ratio Activated Partial 26.3 Thromboplast Time Sodium Level 134 Potassium Level 3.4 Chloride Level 97 Carbon Dioxide Level 24.0 Anion Gap 13 Blood Urea Nitrogen 13 Creatinine 1.11 Estimat Glomerular Filtration 68 Rate Random Glucose 340 Lactic Acid Level 3.3 1.4 Calcium Level 8.7 Total Bilirubin 1.2 Aspartate Amino Transf 38 (AST/SGOT) Alanine Aminotransferase 145 (ALT/SGPT) Alkaline Phosphatase 222 Total Protein 7.0 Albumin 2.2 Lipase 444 Date/Time Procedure Status Source Growth 09/10/16 05:25 Aerobic Blood Culture Received Blood Peripheral Pending 09/10/16 05:25 Anaerobic Blood Culture Received Blood Peripheral Pending 09/10/16 05:00 Gram Stain - Final Resulted Wound Abdomen 09/10/16 05:00 Wound Culture Resulted Wound Abdomen Pending Cardiovascular: Regular Lungs: Clear Abdomen: Other (+ttp right side, no rebound, incisions scant dry blood) A/P Assessment and Plan 55 y/o recent post op lap cady and now with worse pancreatitis CT shows fluid in fossa likely related to surgicell packing PLAN Obtain MRCP- shows left portal vein thrombosis, no CBD stones will consult hemonc for evaluation and possible anticoagulation, possible hypercoagulable work up abx recheck labs bowel rest for now Jacky Pierson MD September 10, 2016 16:54
[2016-09-10] MEDS ORDERED: GLUCAGON 1 MG/ML VIAL OTHER PRN (22:00)
[2016-09-10] MEDS ORDERED: DEXTROSE 50% IN WATER 50 ML VIAL(D50) IV PUSH PRN (22:00)
[2016-09-11] VITALS (7 sets, daily range): BP systolic 133–151; BP diastolic 75–83; PULSE 81–91; RESP 18–26; TEMP 99.6–102; O2SAT 94–98
[2016-09-11] MEDS: PIPERACIL-TAZO 3.375 GM PREMIX 50 ML IV SCH ×4 (00:33→20:00)
[2016-09-11] MEDS: metroNIDAZOLE 500 MG INJ 100 ML IV SCH ×2 (00:33→10:21)
[2016-09-11] MEDS: HYDROmorphone HCL PF 1 MG/ML VIAL IV PRN ×3 (01:58→10:35)
[2016-09-11 03:12] LABS: AUTOMATED NEUTROPHIL # 9.5 TH/MM3 (1.8-7.7); BASOPHIL # 0.1 TH/MM3 (0-0.2); BASOPHIL % 0.5 % (0.0-2.0); EOSINOPHIL % 0.4 % (0.0-4.0); HEMATOCRIT 30.2 % (39.0-51.0); HEMO FLAGS DIFF FINAL; LYMPH % 8.5 % (9.0-44.0); MEAN CELL VOLUME 83.1 FL (80.0-100.0); MEAN CORPUSCULAR HEMOGLOBIN 26.4 PG (27.0-34.0); MEAN CORPUSCULAR HGB CONC 31.8 % (32.0-36.0); MONO % 5.7 % (0.0-8.0); NEUT % 84.9 % (16.0-70.0); PLATELET COUNT 240 TH/MM3 (150-450); RED BLOOD COUNT 3.63 MIL/MM3 (4.50-5.90); RED CELL DISTRIBUTION WIDTH 14.9 % (11.6-17.2); WHITE BLOOD COUNT 11.2 TH/MM3 (4.0-11.0)
[2016-09-11] MEDS: HEPARIN-D5W INJ 250 ML IV SCH ×2 (03:19→18:34)
[2016-09-11 03:23] LABS: APTT (PATIENT) 29.8 SEC (24.3-30.1); PROTHROMBIN TIME - PATIENT 11.1 SEC (9.8-11.6)
[2016-09-11 04:17] LABS: BICARBONATE 26.6 MEQ/L (21.0-32.0); INDIRECT BILIRUBIN 0.6 MG/DL (0.0-0.8); POTASSIUM 3.4 MEQ/L (3.5-5.1); TOTAL BILIRUBIN ADULT 1.1 MG/DL (0.2-1.0)
[2016-09-11] MEDS: SODIUM CHLOR 0.9% 1000 ML INJ 1,000 ML IV SCH ×3 (06:21→22:48)
[2016-09-11] MEDS: LOW DOSE INSULIN NOVOLOG SUPPLEMENTAL SCALE SQ SCH ×4 (06:21→21:08)
[2016-09-11 06:38] LABS: APTT (PATIENT) 31.2 SEC (24.3-30.1)
--- NOTE | 2016-09-11 07:06 | MB ---
cc: STAR MELENDEZ DATE OF 1960. DATE OF CONSULTATION September 10, 2016, inpatient. REASON FOR CONSULTATION Patient with portal vein thrombosis. CHIEF COMPLAINT Abdominal pain and fever. HISTORY OF PRESENT ILLNESS Mr. Roberto is a 55-year-old male who presented to the [facility] with abdominal pain on September 02. He was found to have acute cholecystitis and he underwent an ERCP and laparoscopic cholecystectomy. His BRIAN drain was removed prior to his discharge on September 06. He now presents to the emergency department with acute right-sided abdominal pain which was intense. He also developed low-grade fevers. Then he spiked a fever of 100.2. He was brought to the emergency department.. He had CT imaging on admission which included cholangiopancreatography MRI. This revealed left portal vein thrombosis. There was no intrahepatic or extrahepatic biliary ductal dilatation. There was surrounding edema and mild mass effect on the central intrahepatic ducts. There was gas and fluid seen in the gallbladder fossa. He had a CT of the abdomen and pelvis which revealed a surgically absent gallbladder. Again there was a mixture air and fluid in the gallbladder fossa which was approximately 5.7 x 2.7-cm wide. There was mild ductal dilatation involving the left lobe of the liver. The patient has been seen by Surgery. On admission his lipase was elevated to 444 representing acute pancreatitis. He also has mild elevation of total bilirubin. His AST is 38 and ALT is 145. I have been consulted to make further recommendations regarding portal vein thrombosis. REVIEW OF SYSTEMS A comprehensive 14-point review of systems was completed which is negative except as described in the HPI. PAST MEDICAL HISTORY 1. Hypertension. 2. Diabetes. 3. Gastroesophageal reflux disease. 4. Recent history of cholecystitis with gallstone and distension of the common bile duct. PAST SURGICAL HISTORY 1. Laparoscopic cholecystectomy and ERCP. 2. Appendectomy. 3. Hernia repair x 3. SOCIAL HISTORY No history of tobacco abuse. No illicit drug use. Occasionally drinks alcohol. Lives with his fiance. FAMILY HISTORY Reviewed and is noncontributory to this admission. HOME MEDICATIONS 1. Omeprazole. 2. Metformin. 3. Lisinopril. 4. Amlodipine. 5. Allopurinol. 6. Pain medications. ALLERGIES No known drug allergies. INPATIENT MEDICATIONS 1. Zosyn IV q.6 hours. 2. Protonix 40 mg IV q.24 hours. 3. Metronidazole IV q.8 hours. 4. Zofran. 5. Heparin prophylactic dose. 6. Sliding scale insulin. PHYSICAL EXAMINATION VITAL SIGNS: Blood pressure is 133/79, pulse is in the 80s, temperature is 100. Pulse ox shows 95% on room air. GENERAL: Acutely ill patient in no apparent distress. HEENT: Pupils are equal, round, reactive to light. No oral thrush. No oral lesions. NECK: Supple. No JVD, no bruits, no lymphadenopathy. CHEST: Clear to auscultation bilaterally. ABDOMEN: Soft. Has mild soft tissue swelling in the right upper quadrant. Surgical scars are well-healed. He has mild to moderate tenderness in the right upper quadrant. No rebound or guarding. Bowel sounds are present. EXTREMITIES: Not edematous. No cyanosis. 2+ pulses. NEURO: No focal deficits. PSYCHIATRIC: Mood and affect is appropriate. SKIN: Without any petechiae, lesion or bruises. LYMPH NODE EXAM: Without any significant lymphadenopathy. LABORATORY DATA WBC 7.9, hemoglobin 12, MCV is 81.8, platelet count is 260. Serum chemistries show a sodium of 134, potassium 3.4, chloride 97, anion gap is 13, BUN is 13, creatinine 1.11, lactic acid is 3.3, total bilirubin is 1.2, AST 38, ALT is 145, alk phos is 222, albumin is 2.2 and lipase 444. PT is 10.6. INR 1.0. PTT to 26.3. ASSESSMENT AND PLAN This is a 55-year-old male who recently developed cholecystitis and underwent ERCP and laparoscopic cholecystectomy. He had a BRIAN drain which was removed prior to his discharge on September 06. Now he presents to the hospital with abdominal pain, fevers and elevated lipase consistent with pancreatitis. Imaging reveals air and fluid in the gallbladder fossa and portal vein thrombosis was noted. 1. Portal vein thrombosis in the setting of recent surgery, possibly acute infection and pancreatitis. Based on the patient's history and no family history of DVT or PE, I do not believe he had an underlying persistent hypercoagulable state. This portal vein thrombosis has occurred in the setting of the surgery and above-mentioned complications. I would recommend anticoagulating this patient with heparin at this time. He may require surgical intervention during this admission, thus I would avoid putting him on Coumadin or another anticoagulant. We could discharge this patient on either Coumadin or Eliquis. We will switch him to oral anticoagulants at an appropriate time. Given the fact that this thrombosis occurred in a provoked situation, I would recommend anticoagulation for at least 3 months and then he will require reassessment. I do not believe that this patient will require indefinite anticoagulation. 1. Acute pancreatitis with possible sepsis. I agree with antibiotics. Further management per primary team and surgery. Thank you for allowing me to participate in the care of this patient. I will continue to follow this patient along. MD LUCIO Iniguez/CLAUDIA /2:14 AM /6:48 AM
[2016-09-11] MEDS ORDERED: HEPARIN SODIUM - IV 10,000 UNITS/10 ML VIAL IV PRN ×2 (08:15)
[2016-09-11] MEDS: SODIUM CHLORIDE 0.9% FLUSH 10 ML FLUSH IV FLUSH SCH ×2 (09:00→21:00)
[2016-09-11 09:48] LABS: APTT (PATIENT) 35.8 SEC (24.3-30.1)
[2016-09-11] MEDS: PANTOPRAZOLE SODIUM 40 MG VIAL IV PUSH SCH (10:21)
--- NOTE | 2016-09-11 10:57 | PD.ONC.PN ---
Subjective Subjective Remarks Tmax 101.2 this am. Pt c/o R side abdominal pain. He denies SOB or chest pain. He tells me he would like to avoid Coumadin if possible. Objective Data Date Time Temp Pulse Resp B/P Pulse Ox O2 Delivery O2 Flow Rate FiO2 09/11/16 09:09 94 21 09/11/16 08:40 101.2 90 18 139/77 94 09/11/16 04:00 100.0 81 18 133/79 95 09/11/16 00:00 99.6 86 18 143/83 95 09/10/16 20:00 100.0 81 18 133/79 95 09/10/16 16:28 99.0 88 20 128/72 94 Result Diagram: 09/11/16 0256 09/11/16 0256 Laboratory Results Laboratory Tests Test 09/11/16 09/11/16 09/11/16 02:56 05:50 09:28 White Blood Count 11.2 TH/MM3 Red Blood Count 3.63 MIL/MM3 Hemoglobin 9.6 GM/DL Hematocrit 30.2 % Mean Corpuscular Volume 83.1 FL Mean Corpuscular Hemoglobin 26.4 PG Mean Corpuscular Hemoglobin 31.8 % Concent Red Cell Distribution Width 14.9 % Platelet Count 240 TH/MM3 Mean Platelet Volume 9.4 FL Neutrophils (%) (Auto) 84.9 % Lymphocytes (%) (Auto) 8.5 % Monocytes (%) (Auto) 5.7 % Eosinophils (%) (Auto) 0.4 % Basophils (%) (Auto) 0.5 % Neutrophils # (Auto) 9.5 TH/MM3 Lymphocytes # (Auto) 1.0 TH/MM3 Monocytes # (Auto) 0.6 TH/MM3 Eosinophils # (Auto) 0.0 TH/MM3 Basophils # (Auto) 0.1 TH/MM3 CBC Comment DIFF FINAL Differential Comment Prothrombin Time 11.1 SEC Prothromb Time International 1.0 RATIO Ratio Activated Partial 29.8 SEC 31.2 SEC 35.8 SEC Thromboplast Time Sodium Level 136 MEQ/L Potassium Level 3.4 MEQ/L Chloride Level 100 MEQ/L Carbon Dioxide Level 26.6 MEQ/L Anion Gap 9 MEQ/L Blood Urea Nitrogen 9 MG/DL Creatinine 0.78 MG/DL Estimat Glomerular Filtration 103 ML/MIN Rate Random Glucose 153 MG/DL Calcium Level 8.2 MG/DL Total Bilirubin 1.1 MG/DL Direct Bilirubin 0.5 MG/DL Indirect Bilirubin 0.6 MG/DL Aspartate Amino Transf 23 U/L (AST/SGOT) Alanine Aminotransferase 79 U/L (ALT/SGPT) Alkaline Phosphatase 158 U/L Total Protein 6.1 GM/DL Albumin 1.8 GM/DL Lipase 184 U/L Culture Results Microbiology Date/Time Procedure Status Source Growth 09/10/16 05:00 Gram Stain - Final Resulted Wound Abdomen 09/10/16 05:00 Wound Culture Resulted Wound Abdomen Pending 09/10/16 05:15 Aerobic Blood Culture Received Blood Peripheral Pending 09/10/16 05:15 Anaerobic Blood Culture Received Blood Peripheral Pending 09/10/16 05:25 Aerobic Blood Culture Received Blood Peripheral Pending 09/10/16 05:25 Anaerobic Blood Culture Received Blood Peripheral Pending Imaging Studies Last Impressions Chest X-Ray 09/10/16517 Signed Impressions: Service Date/Time: Saturday, September 10, 2016 05:32 - CONCLUSION: 1. No acute cardiopulmonary disease. 2. Hiatal hernia. Shane Kennedy Jr., MD Abdomen/Pelvis CT 09/10/16517 Signed Impressions: Service Date/Time: Saturday, September 10, 2016 06:17 - CONCLUSION: 1. There is a 5.7 x 2.5 cm collection involving the gallbladder fossa. This is a mixture of air and fluid but predominantly air. 2. Mild intrahepatic ductal dilatation involving the left lobe of the liver. 3. Left-sided hydrocele partially seen. 4. Small volume ascites. 5. Small bilateral pleural effusions. Shane Kennedy Jr., MD Cholangiopancreatography MRI 09/10/16 0000 Signed Impressions: Service Date/Time: Saturday, September 10, 2016 13:15 - CONCLUSION: 1. Left portal vein thrombosis. 2. Intrahepatic and extrahepatic biliary ducts within normal limits in diameter. 3. Gas and fluid again seen in the gallbladder fossa. Status post cholecystectomy. Ryan Kim MD Administered Medications Medications (Trade) Dose Ordered Sig/Cezar Route PRN Reason Start Time Stop Time Status Last Admin Dose Admin Piperacillin Sod/ Tazobactam Sod 50 ml @ 100 mls/hr Q6H IV 09/10/16 12:00 09/11/16 06:13 Sodium Chloride (NS 1000 ml Inj) 1,000 ml @ 125 mls/hr Q8H IV 09/10/16 06:48 09/10/16 22:48 Sodium Chloride 2 ml 2 ml BID IV FLUSH 09/10/16 09:00 09/10/16 22:47 Metronidazole (Flagyl 500 Mg Inj) 100 ml @ 100 mls/hr Q8H IV 09/10/16 10:00 09/11/16 10:21 Pantoprazole Sodium (Protonix Inj) 40 mg Q24H IV PUSH 09/10/16 10:15 09/11/16 10:21 Hydromorphone HCl 0.5 mg 0.5 mg Q4H PRN IV PAIN SCALE 6 TO 10 09/10/16 13:15 09/11/16 10:35 Heparin Sodium/ Dextrose (Heparin-D5W Inj) 250 ml @ 0 mls/hr TITRATE IV 09/11/16 02:15 09/11/16 03:19 Objective Remarks GENERAL: Middle aged male, lying in bed in no distress. SKIN: Warm and dry. HEAD: Normocephalic. EYES: No injection or drainage. NECK: Supple, trachea midline. CARDIOVASCULAR: +S1/S2. RESPIRATORY: Clear anteriorly. Breathing unlabored. GASTROINTESTINAL: L side tenderness. EXTREMITIES: No cyanosis, or edema. NEUROLOGICAL: No obvious focal deficit. Awake, alert, and oriented x3. Assessment/Plan Problem List: (1) Portal vein thrombosis Status: Acute Plan: -- Continue heparin gtt -- Will likely transition him to an oral anticoagulant once all procedures are complete -- Thrombus can be explained by recent sx procedure, we will plan to keep him on anticoagulation for 3 months. Hx/Workup: Mr. Roberto is a 55-year-old male who presented to the [facility] with abdominal pain on September 02. He was found to have acute cholecystitis and he underwent an ERCP and laparoscopic cholecystectomy. His BRIAN drain was removed prior to his discharge on September 06. Wfter discharge he developed intense R side abdominal pain with fever and returned to the ER. Imaging on this admission included a cholangiopancreatography MRI that revealed a L side portal vein thrombosis. (2) Postoperative fever Status: Acute Plan: -- Acute pancreatitis -- BC pending -- On Zosyn and Flagyl Assessment 55 y/o male who recently had cholecystectomy presents to the ER with c/o R side abdominal pain and fevers. Plan 1. Continue heparin gtt 2. Will transition him to po anticoagulation (likely Eliquis since he does not wish to be on Coumadin) once no more procedures planned. 3. Continue ABX, supportive care. Attending Statement The exam, history, and the medical decision-making described in the above note were completed with the assistance of the mid-level provider. I reviewed and agree with the findings presented. I attest that I had a [id number] encounter with the patient on the same day, and personally performed and documented my assessment and findings in the medical record. Heather Vázquez September 11, 2016 10:57 Jorge Hubbard MD September 12, 2016 00:12
--- NOTE | 2016-09-11 11:28 | HHI.PR ---
Subjective Remarks Alert awake Resting in bed Still has right mid and upper quadrant pain at rest and with palpation Fever continues Patient now on heparin drip Taking sips and a bite or 2 of food, no further vomiting (Priscilla Mullen) Objective Objective Results - Vital Signs Date Time Temp Pulse Resp B/P Pulse Ox O2 Delivery O2 Flow Rate FiO2 09/11/16 09:09 94 21 09/11/16 08:40 101.2 90 18 139/77 94 09/11/16 04:00 100.0 81 18 133/79 95 09/11/16 00:00 99.6 86 18 143/83 95 09/10/16 20:00 100.0 81 18 133/79 95 09/10/16 16:28 99.0 88 20 128/72 94 (Priscilla Mullen) Result Diagram: 09/11/16 0256 09/11/16 0256 ROS General: Weakness (secondary to current diagnosis), Other (12 point ROS done positives noted otherwise systems unremarkable) Cardiac: Edema (mild right mid and upper quadrant) GI: Abdominal Pain (right mid and upper quadrant), BM (yesterday) Neuro/MS: Other (alert oriented) Skin: Other (fever) (Priscilla Mullen) Physical Exam Physical Exam PHYSICAL EXAMINATION GENERAL: This is a well-developed, well-nourished male who appears to be in mild distress with RUQ pain and fever.. He is alert and awake, HEAD: Normocephalic, atraumatic Facial features appear symmetric. OROPHARYNGEAL: Oropharynx without erythema or edema. NECK: Supple. No nuchal rigidity or lymphadenopathy. Trachea midline without deviation. CARDIAC: Regular rhythm, regular rate, S1 and S2 are heard. No murmurs rubs or gallops, no lower extremity edema LUNGS: Clear to auscultation bilaterally. No wheeze, low volumes encouraged to take deep breaths as much as possible ABDOMEN: Soft, taut over UQ, mild rebound at RMQ area. Bowel sounds EXTREMITIES: no edema. Pulses equal bilateral. NEUROLOGICAL: Patient mood and affect appropriate. Mild anxiety over current condition, speech clear SKIN:Warm and moist Objective Remarks I'm still having pain and fever today (Priscilla Mullen) A/P Assessment and Plan Vital signs reviewed, continues with some low-grade fever and as high as 101. Pulse respiratory rate normal ranges BP normal range Labs reviewed, mild leukocytosis today, anemia, stable, patient continues on IV antibiotics and aggressive treatment regimen. Still has abnormal liver enzymes but lipase level decreased. Bilirubin level still elevated probably secondary to acute pancreatitis Blood cultures are pending Acute portal thrombosis, probable complications of recent cholecystectomy. Patient's now on heparin drip, once aggressive testing completed, she can transposition to by mouth anticoagulation Appreciate input from oncology and surgery for the plan of care and their expert opinion Acute pancreatitis, patient still has fever and tenderness right mid and right upper quadrant with some guarding. Abdomen is taut, mild tympany. We'll monitor labs which continued to be elevated, lipase back down in normal ranges. Patient still has some elevated lactic acid but is trending down. Continue IV antibiotics of Flagyl and Zosyn Hypokalemia, will give IV potassium again today and recheck lab in the morning Lactic acid sepsis, levels trending down, IV antibiotics continue Hypertension, controlled now with patient's medicines, monitoring BP every 4 GERD, PPI medical management Diabetes mellitus type 2, blood sugar this a.m. down to 153 much better control , tinea Accu-Cheks before meals and at bedtime with sliding scale Discussed With: Nurse, Family (patient), Other (Dr. Morrison, seen on his behalf) (Priscilla Mullen) Assessment and Plan pt seen and examined as above with at bedside labs and rad data reviewed meds [employer] help dw pt and alexis perlap about plan of care labs for am dw surgeon will follow cultures plan for ID consult (Roseann Morrison MD) Priscilla Mullen September 11, 2016 11:28 Roseann Morrison MD September 11, 2016 12:58
[2016-09-11] MEDS: POTASSIUM CHLOR 20 MEQ PREMIX 100 ML IV SCH ×2 (12:59→14:00)
[2016-09-11] MEDS ORDERED: Vancomycin Consult Pharmacy 1 EA OTHER SCH (15:30)
[2016-09-11] MEDS ORDERED: VANCOMYCIN INJ 1,000 MG in SODIUM CHLOR 0.9% 250 ML INJ 250 ML IV ONE (16:00)
[2016-09-11] MEDS: oxyCODONE/ACETAMINOPHEN 10 MG/325 MG TAB PO PRN ×2 (16:02→21:01)
--- NOTE | 2016-09-11 17:26 | PD.CONS ---
History of Present Illness Service Infectious disease Consult Requested By Dr Angel Morrison Reason for Consult Evaluate patient with sepsis, abdominal pain, had recent surgery Primary Care Physician Colten Nolan M.D. Diagnoses: History of Present Illness Patient seen and examined. Records reviewed. Patient is a 55-year-old male, had a recent hospitalization september, with abdominal pain. He was diagnosed to have acute cholecystitis, and he underwent ERCP and laparoscopic cholecystectomy. He was discharged on September 06 and was doing well up until the day of admission when he had an acute onset of fever and chills, and sharp right upper quadrant and epigastric pain. He did not have any nausea or vomiting. Has not had any diarrhea. Denies any respiratory complaint. And he has not had any urinary complaint. On presentation he had a white count of 11,000, he had an elevated lipase of 444, and his LFTs were actually improving compared to his LFTs from when he was discharged. Chest x-ray was normal. Urinalysis was unremarkable. He had an MRI which showed portal vein thrombosis, and some air and fluid in the gallbladder fossa. Patient currently still complaining of significant right upper quadrant pain. His epigastric pain is better. His lipase is now down to normal. Infectious disease consultation has been requested to evaluate the patient. (Irma Rehman MD) Review of Systems Constitutional: COMPLAINS OF: Fever, Chills, Night Sweats Eyes: DENIES: Eye pain Ears, nose, mouth, throat: DENIES: Nasal discharge, Oral lesions, Throat pain, Running Nose, Sinus Pain, Toothache Respiratory: DENIES: Cough, Shortness of breath Cardiovascular: DENIES: Chest pain, Palpitations Gastrointestinal: COMPLAINS OF: Abdominal pain, DENIES: Diarrhea, Nausea, Vomiting, Difficulty Swallowing Genitourinary: DENIES: Urgency, Dysuria Musculoskeletal: DENIES: Joint pain, Muscle aches, Joint Swelling, Back pain Integumentary: DENIES: Rash Neurologic: DENIES: Headache Psychiatric: DENIES: Anxiety, Hallucinations (Irma Rehman MD) Past Family Social History Allergies: Coded Allergies: No Known Allergies (Unverified , 09/10/16) Past Medical History Hypertension Diabetes mellitus type 2 GERD Recent cholecystitis with gallstones and distended CBD Past Surgical History Appendectomy Hernia repair times three. Recent laparoscopic cholecystectomy and ERCP. Active Ordered Medications Heparin Dilaudid Insulin Flagyl Zofran Percocet Protonix Zosyn Vancomycin Social History Denies smoking Occasional alcohol No illicit drugs Lives with his fianc and son (Irma Rehman ) Physical Exam Vital Signs Vital Signs Date Time Temp Pulse Resp B/P Pulse Ox O2 Delivery O2 Flow Rate FiO2 09/11/16 16:41 102.0 91 18 141/83 97 09/11/16 13:06 100.5 90 18 151/82 95 09/11/16 09:09 94 21 09/11/16 08:40 101.2 90 18 139/77 94 09/11/16 04:00 100.0 81 18 133/79 95 09/11/16 00:00 99.6 86 18 143/83 95 09/10/16 20:00 100.0 81 18 133/79 95 Physical Exam GENERAL: This is a well-nourished, well-developed male, awake and alert, in no apparent distress. SKIN: Warm and dry. No generalized rash or ecchymosis. HEAD: Atraumatic. Normocephalic. No temporal or scalp tenderness. EYES: [place] conjunctivae, no petechia or hemorrhage. Pupils equal round and reactive. Extraocular motions intact. No scleral icterus. No injection or drainage. ENT: Nose without bleeding, or purulent drainage. Moist oral mucosa, no lesions noted. Throat without erythema, or exudate. Uvula midline. Airway patent. NECK: Trachea midline. No JVD or lymphadenopathy. Supple, nontender, no meningeal signs. CARDIOVASCULAR: Regular rate and rhythm without murmurs, gallops, or rubs. RESPIRATORY: Clear to auscultation. Breath sounds equal bilaterally. No wheezes , rales, or rhonchi. GASTROINTESTINAL: Abdomen distended, bowel sounds are present and hypoactive, with significant tenderness on the right side, no guarding or rebound. Incisions from lap has Steri-Strips in place, with no drainage noted. The incision close to the epigastric area has very mild erythema noted. MUSCULOSKELETAL: Extremities without clubbing, cyanosis, or edema. No joint effusion, or edema noted, and has good ROM.. No calf tenderness. Negative Homans sign bilaterally. NEUROLOGICAL: Awake and alert. Cranial nerves II through XII intact. Motor and sensory grossly within normal limits. Five out of 5 muscle strength in all muscle groups. Normal speech. PSYCH: Normal affect, calm and cooperative. LINE: PIV with no evidence of infection. Previous IV sites with no evidence of phlebitis. Laboratory Laboratory Tests Test 09/11/16 09/11/16 09/11/16 09/11/16 02:56 05:50 09:28 11:58 White Blood Count 11.2 Red Blood Count 3.63 Hemoglobin 9.6 Hematocrit 30.2 Mean Corpuscular Volume 83.1 Mean Corpuscular Hemoglobin 26.4 Mean Corpuscular Hemoglobin 31.8 Concent Red Cell Distribution Width 14.9 Platelet Count 240 Mean Platelet Volume 9.4 Neutrophils (%) (Auto) 84.9 Lymphocytes (%) (Auto) 8.5 Monocytes (%) (Auto) 5.7 Eosinophils (%) (Auto) 0.4 Basophils (%) (Auto) 0.5 Neutrophils # (Auto) 9.5 Lymphocytes # (Auto) 1.0 Monocytes # (Auto) 0.6 Eosinophils # (Auto) 0.0 Basophils # (Auto) 0.1 CBC Comment DIFF FINAL Differential Comment Prothrombin Time 11.1 Prothromb Time International 1.0 Ratio Activated Partial 29.8 31.2 35.8 35.0 Thromboplast Time Sodium Level 136 Potassium Level 3.4 Chloride Level 100 Carbon Dioxide Level 26.6 Anion Gap 9 Blood Urea Nitrogen 9 Creatinine 0.78 Estimat Glomerular Filtration 103 Rate Random Glucose 153 Calcium Level 8.2 Total Bilirubin 1.1 Direct Bilirubin 0.5 Indirect Bilirubin 0.6 Aspartate Amino Transf 23 (AST/SGOT) Alanine Aminotransferase 79 (ALT/SGPT) Alkaline Phosphatase 158 Total Protein 6.1 Albumin 1.8 Lipase 184 Date/Time Procedure Status Source Growth 09/11/16 13:00 Stool Occult Blood (MOY) - Final Complete Stool Stool HEMOCCULT NEGATIVE 09/10/16 05:25 Aerobic Blood Culture - Preliminary Resulted Blood Peripheral NO GROWTH IN 1 DAY 09/10/16 05:25 Anaerobic Blood Culture - Preliminary Resulted Blood Peripheral NO GROWTH IN 1 DAY 09/10/16 05:00 Gram Stain - Final Resulted Wound Abdomen 09/10/16 05:00 Wound Culture - Preliminary Resulted Wound Abdomen NO GROWTH IN 24 HOURS. (Irma Rehman MD) Result Diagram: 09/11/16 0256 09/11/16 0256 Imaging RADIOLOGY STUDIES/FILMS REVIEWED Last Impressions Chest X-Ray 09/10/16517 Signed Impressions: Service Date/Time: Saturday, September 10, 2016 05:32 - CONCLUSION: 1. No acute cardiopulmonary disease. 2. Hiatal hernia. Shane Kennedy Jr., MD Abdomen/Pelvis CT 09/10/16517 Signed Impressions: Service Date/Time: Saturday, September 10, 2016 06:17 - CONCLUSION: 1. There is a 5.7 x 2.5 cm collection involving the gallbladder fossa. This is a mixture of air and fluid but predominantly air. 2. Mild intrahepatic ductal dilatation involving the left lobe of the liver. 3. Left-sided hydrocele partially seen. 4. Small volume ascites. 5. Small bilateral pleural effusions. Shane Kennedy Jr., MD Cholangiopancreatography MRI 09/10/16 0000 Signed Impressions: Service Date/Time: Saturday, September 10, 2016 13:15 - CONCLUSION: 1. Left portal vein thrombosis. 2. Intrahepatic and extrahepatic biliary ducts within normal limits in diameter. 3. Gas and fluid again seen in the gallbladder fossa. Status post cholecystectomy. Ryan Kim MD (Irma Rehman MD) Assessment and Plan Assessment and Plan IMPRESSION Sepsis syndrome possibly related to recent surgery, though findings with air/ fluid in GB fossa not unusual due to the recent procedure - ?due to portal vein thrombosis - had some elevated lipase, now down to normal, no abnormality seen on imaging studies - CXR clear - UA ok Recent lap cady for acute cholecystitis RECOMMENDATION Continue Zosyn D/C other Abx Follow C/S and adjust Abx Heme Rx portal vein thrombosis Monitor temps Monitor progress I will determine course of Abx once C/S and work-up completed Thank you for this consultation Discussed Condition With Explained plan to the patient (Irma Rehman MD) Assessment and Plan Patient seen and examined as above Labs and medications and previous notes reviewed Discussed with BARGE MASTER about about plan of care Discussed with patient and at bedside Appreciate consultants help. Discussed with infectious disease DrArtemio and surgeon Discussed with RN Condition guarded Labs for tomorrow (Roseann Morrison MD) Irma Rehman MD September 11, 2016 17:26 Roseann Morrison MD September 12, 2016 15:47
--- NOTE | 2016-09-11 18:32 | HHI.PR ---
Subjective Subjective Notes Resting in bed Reports fever overnight of 100.0 Objective Vitals/I&O Vital Signs Date Time Temp Pulse Resp B/P Pulse Ox O2 Delivery O2 Flow Rate FiO2 09/11/16 16:41 102.0 91 18 141/83 97 09/11/16 09:09 21 09/10/16 07:53 Room Air Labs Laboratory Tests Test 09/11/16 09/11/16 09/11/16 09/11/16 02:56 05:50 09:28 11:58 White Blood Count 11.2 Red Blood Count 3.63 Hemoglobin 9.6 Hematocrit 30.2 Mean Corpuscular Volume 83.1 Mean Corpuscular Hemoglobin 26.4 Mean Corpuscular Hemoglobin 31.8 Concent Red Cell Distribution Width 14.9 Platelet Count 240 Mean Platelet Volume 9.4 Neutrophils (%) (Auto) 84.9 Lymphocytes (%) (Auto) 8.5 Monocytes (%) (Auto) 5.7 Eosinophils (%) (Auto) 0.4 Basophils (%) (Auto) 0.5 Neutrophils # (Auto) 9.5 Lymphocytes # (Auto) 1.0 Monocytes # (Auto) 0.6 Eosinophils # (Auto) 0.0 Basophils # (Auto) 0.1 CBC Comment DIFF FINAL Differential Comment Prothrombin Time 11.1 Prothromb Time International 1.0 Ratio Activated Partial 29.8 31.2 35.8 35.0 Thromboplast Time Sodium Level 136 Potassium Level 3.4 Chloride Level 100 Carbon Dioxide Level 26.6 Anion Gap 9 Blood Urea Nitrogen 9 Creatinine 0.78 Estimat Glomerular Filtration 103 Rate Random Glucose 153 Calcium Level 8.2 Total Bilirubin 1.1 Direct Bilirubin 0.5 Indirect Bilirubin 0.6 Aspartate Amino Transf 23 (AST/SGOT) Alanine Aminotransferase 79 (ALT/SGPT) Alkaline Phosphatase 158 Total Protein 6.1 Albumin 1.8 Lipase 184 Date/Time Procedure Status Source Growth 09/11/16 13:00 Stool Occult Blood (MOY) - Final Complete Stool Stool HEMOCCULT NEGATIVE 09/10/16 05:25 Aerobic Blood Culture - Preliminary Resulted Blood Peripheral NO GROWTH IN 1 DAY 09/10/16 05:25 Anaerobic Blood Culture - Preliminary Resulted Blood Peripheral NO GROWTH IN 1 DAY 09/10/16 05:00 Gram Stain - Final Resulted Wound Abdomen 09/10/16 05:00 Wound Culture - Preliminary Resulted Wound Abdomen NO GROWTH IN 24 HOURS. Cardiovascular: Regular Lungs: Clear Abdomen: Other (lap sites c/d/i with Steri strips in place; abd pain with palpation in RUQ; mildly distended ) Extremities: No edema A/P Assessment and Plan 55 year old male s/p ERCP and stent placement and lap cady last week; back with increased abdominal pain and fever at home -MRCP showed LEFT protal vein thrombosis -Hematology consult---started Heparin drip -Fever overnight + elevated WBC---Dr. Morrison consulted ID -Diet as tolerated Attending Statement stable portal vein thrombosis consult heme for recs patient seen at bedside Attestation The exam, history, and the medical decision-making described in the above note were completed with the assistance of the mid-level provider. I reviewed and agree with the findings presented. I attest that I had a [id number] encounter with the patient on the same day, and personally performed and documented my assessment and findings in the medical record. Kizzy Moody September 11, 2016 18:32 Jacky Pierson MD September 23, 2016 21:21
[2016-09-11] MEDS ORDERED: ACETAMINOPHEN 325 MG TAB PO PRN (19:15)
[2016-09-11 19:27] LABS: APTT (PATIENT) 31.3 SEC (24.3-30.1)
[2016-09-11] MEDS ORDERED: POTASSIUM CHLOR 20 MEQ PREMIX 100 ML IV SCH (21:00)
[2016-09-12] VITALS (7 sets, daily range): BP systolic 127–160; BP diastolic 60–90; PULSE 77–95; RESP 17–24; TEMP 98.4–100.9; O2SAT 94–98
[2016-09-12] MEDS: oxyCODONE/ACETAMINOPHEN 10 MG/325 MG TAB PO PRN ×6 (00:55→22:06)
[2016-09-12] MEDS: PIPERACIL-TAZO 3.375 GM PREMIX 50 ML IV SCH ×4 (00:56→22:08)
[2016-09-12] MEDS ORDERED: VANCOMYCIN INJ 1,250 MG in SODIUM CHLOR 0.9% 250 ML INJ 250 ML IV SCH (02:00)
[2016-09-12 02:45] LABS: HEMATOCRIT 31.3 % (39.0-51.0); MEAN CELL VOLUME 81.4 FL (80.0-100.0); MEAN CORPUSCULAR HEMOGLOBIN 26.1 PG (27.0-34.0); MEAN CORPUSCULAR HGB CONC 32.1 % (32.0-36.0); PLATELET COUNT 273 TH/MM3 (150-450); RED BLOOD COUNT 3.85 MIL/MM3 (4.50-5.90); RED CELL DISTRIBUTION WIDTH 14.6 % (11.6-17.2); REVIEW FLAG FINAL; WHITE BLOOD COUNT 12.3 TH/MM3 (4.0-11.0)
[2016-09-12 03:03] LABS: BICARBONATE 27.4 MEQ/L (21.0-32.0); POTASSIUM 3.4 MEQ/L (3.5-5.1)
[2016-09-12 03:05] LABS: INDIRECT BILIRUBIN 0.4 MG/DL (0.0-0.8); TOTAL BILIRUBIN ADULT 0.8 MG/DL (0.2-1.0)
[2016-09-12 03:06] LABS: APTT (PATIENT) 35.7 SEC (24.3-30.1)
[2016-09-12] MEDS: LOW DOSE INSULIN NOVOLOG SUPPLEMENTAL SCALE SQ SCH ×4 (05:51→21:00)
[2016-09-12] MEDS: SODIUM CHLOR 0.9% 1000 ML INJ 1,000 ML IV SCH ×2 (06:48→18:53)
[2016-09-12] MEDS: HEPARIN-D5W INJ 250 ML IV SCH (08:38)
[2016-09-12] MEDS: SODIUM CHLORIDE 0.9% FLUSH 10 ML FLUSH IV FLUSH SCH ×2 (09:00→21:00)
--- NOTE | 2016-09-12 09:44 | PD.ONC.PN ---
Subjective Subjective Remarks Tmax 102.0 overnight. Blood cultures pending Spoke with Dr Pierson- no other invasive procedures planned at this point. Pt still with abdominal pain, but it is improving Objective Data Date Time Temp Pulse Resp B/P Pulse Ox O2 Delivery O2 Flow Rate FiO2 09/12/16 08:38 98.4 85 20 160/90 96 09/12/16 04:00 98.4 84 22 140/70 98 09/12/16 00:00 100.1 82 24 145/81 97 09/11/16 20:00 100.2 84 26 134/75 98 09/11/16 16:41 102.0 91 18 141/83 97 09/11/16 13:06 100.5 90 18 151/82 95 Result Diagram: 09/12/16 0226 09/12/16 0226 Laboratory Results Laboratory Tests Test 09/11/16 09/11/16 09/12/16 11:58 18:19 02:26 Activated Partial 35.0 SEC 31.3 SEC 35.7 SEC Thromboplast Time White Blood Count 12.3 TH/MM3 Red Blood Count 3.85 MIL/MM3 Hemoglobin 10.1 GM/DL Hematocrit 31.3 % Mean Corpuscular Volume 81.4 FL Mean Corpuscular Hemoglobin 26.1 PG Mean Corpuscular Hemoglobin 32.1 % Concent Red Cell Distribution Width 14.6 % Platelet Count 273 TH/MM3 Mean Platelet Volume 9.1 FL Sodium Level 136 MEQ/L Potassium Level 3.4 MEQ/L Chloride Level 101 MEQ/L Carbon Dioxide Level 27.4 MEQ/L Anion Gap 8 MEQ/L Blood Urea Nitrogen 5 MG/DL Creatinine 0.76 MG/DL Estimat Glomerular Filtration 106 ML/MIN Rate Random Glucose 150 MG/DL Calcium Level 8.2 MG/DL Total Bilirubin 0.8 MG/DL Direct Bilirubin 0.4 MG/DL Indirect Bilirubin 0.4 MG/DL Aspartate Amino Transf 14 U/L (AST/SGOT) Alanine Aminotransferase 54 U/L (ALT/SGPT) Alkaline Phosphatase 138 U/L Total Protein 6.3 GM/DL Albumin 1.7 GM/DL Lipase 95 U/L Culture Results Microbiology Date/Time Procedure Status Source Growth 09/10/16 05:00 Gram Stain - Final Resulted Wound Abdomen 09/10/16 05:00 Wound Culture - Preliminary Resulted Wound Abdomen NO GROWTH IN 48 HOURS. 09/10/16 05:15 Aerobic Blood Culture - Preliminary Resulted Blood Peripheral NO GROWTH IN 1 DAY 09/10/16 05:15 Anaerobic Blood Culture - Preliminary Resulted Blood Peripheral NO GROWTH IN 1 DAY 09/10/16 05:25 Aerobic Blood Culture - Preliminary Resulted Blood Peripheral NO GROWTH IN 1 DAY 09/10/16 05:25 Anaerobic Blood Culture - Preliminary Resulted Blood Peripheral NO GROWTH IN 1 DAY 09/11/16 13:00 Stool Occult Blood (MOY) - Final Complete Stool Stool HEMOCCULT NEGATIVE 09/11/16 18:14 Aerobic Blood Culture Received Blood Peripheral Pending 09/11/16 18:14 Anaerobic Blood Culture Received Blood Peripheral Pending 09/11/16 18:19 Aerobic Blood Culture Received Blood Peripheral Pending 09/11/16 18:19 Anaerobic Blood Culture Received Blood Peripheral Pending Administered Medications Medications (Trade) Dose Ordered Sig/Cezar Route PRN Reason Start Time Stop Time Status Last Admin Dose Admin Sodium Chloride (NS 1000 ml Inj) 1,000 ml @ 125 mls/hr Q8H IV 09/10/16 06:48 09/12/16 06:48 Sodium Chloride (NS Flush) 2 ml BID IV FLUSH 09/10/16 09:00 09/11/16 09:00 Pantoprazole Sodium (Protonix Inj) 40 mg Q24H IV PUSH 09/10/16 10:15 09/11/16 10:21 Hydromorphone HCl 0.5 mg 0.5 mg Q4H PRN IV PAIN SCALE 6 TO 10 09/10/16 13:15 09/11/16 10:35 Heparin Sodium/ Dextrose (Heparin-D5W Inj) 250 ml @ 0 mls/hr TITRATE IV 09/11/16 02:15 09/12/16 08:38 Oxycodone/ Acetaminophen 1 tab 1 tab Q4H PRN PO BREAKTHROUGH PAIN 09/11/16 15:15 09/12/16 05:43 Piperacillin Sod/ Tazobactam Sod (Zosyn 3.375 Gm Premix) 50 ml @ 100 mls/hr Q6H IV 09/11/16 20:00 09/12/16 07:45 Objective Remarks GENERAL: Middle aged male, lying in bed in no distress. SKIN: Warm and dry. HEAD: Normocephalic. EYES: No injection or drainage. NECK: Supple, trachea midline. CARDIOVASCULAR: +S1/S2. RESPIRATORY: Clear anteriorly. Breathing unlabored. GASTROINTESTINAL: Tender to palpation. +BS. EXTREMITIES: No cyanosis, or edema. NEUROLOGICAL: No obvious focal deficit. Awake, alert, and oriented x3. Assessment/Plan Problem List: (1) Portal vein thrombosis Status: Acute Plan: -- Continue heparin gtt -- Will likely transition him to an oral anticoagulant once all procedures are complete -- Thrombus can be explained by recent sx procedure, we will plan to keep him on anticoagulation for 3 months. Hx/Workup: Mr. Roberto is a 55-year-old male who presented to the [facility] with abdominal pain on September 02. He was found to have acute cholecystitis and he underwent an ERCP and laparoscopic cholecystectomy. His BRIAN drain was removed prior to his discharge on September 06. After discharge he developed intense R side abdominal pain with fever and returned to the ER. Imaging on this admission included a cholangiopancreatography MRI that revealed a L side portal vein thrombosis. (2) Postoperative fever Status: Acute Plan: -- Acute pancreatitis -- BC pending -- On Zosyn and Flagyl Assessment 55 y/o male who recently had cholecystectomy presents to the ER with c/o R side abdominal pain and fevers. Plan 1. Transition him to Eliquis today. 2. Continue ABX, supportive care. 3. Monitor CBC Attending Statement The exam, history, and the medical decision-making described in the above note were completed with the assistance of the mid-level provider. I reviewed and agree with the findings presented. I attest that I had a [id number] encounter with the patient on the same day, and personally performed and documented my assessment and findings in the medical record. Start Eliquis treatment dose. Limited Hypercoagulable w/u ordered d/w Heather Smith September 12, 2016 09:44 Jorge Hubbard MD September 12, 2016 23:02
[2016-09-12] MEDS: PANTOPRAZOLE SODIUM 40 MG VIAL IV PUSH SCH (10:28)
--- NOTE | 2016-09-12 10:29 | HHI.PR ---
Subjective Subjective Notes Resting in bed Feels better today but still having some abdominal pain Objective Vitals/I&O Vital Signs Date Time Temp Pulse Resp B/P Pulse Ox O2 Delivery O2 Flow Rate FiO2 09/12/16 08:38 98.4 85 20 160/90 96 09/11/16 09:09 21 09/10/16 07:53 Room Air Labs Laboratory Tests Test 09/11/16 09/11/16 09/12/16 11:58 18:19 02:26 Activated Partial 35.0 31.3 35.7 Thromboplast Time White Blood Count 12.3 Red Blood Count 3.85 Hemoglobin 10.1 Hematocrit 31.3 Mean Corpuscular Volume 81.4 Mean Corpuscular Hemoglobin 26.1 Mean Corpuscular Hemoglobin 32.1 Concent Red Cell Distribution Width 14.6 Platelet Count 273 Mean Platelet Volume 9.1 Sodium Level 136 Potassium Level 3.4 Chloride Level 101 Carbon Dioxide Level 27.4 Anion Gap 8 Blood Urea Nitrogen 5 Creatinine 0.76 Estimat Glomerular Filtration 106 Rate Random Glucose 150 Calcium Level 8.2 Total Bilirubin 0.8 Direct Bilirubin 0.4 Indirect Bilirubin 0.4 Aspartate Amino Transf 14 (AST/SGOT) Alanine Aminotransferase 54 (ALT/SGPT) Alkaline Phosphatase 138 Total Protein 6.3 Albumin 1.7 Lipase 95 Date/Time Procedure Status Source Growth 09/11/16 18:19 Aerobic Blood Culture Received Blood Peripheral Pending 09/11/16 18:19 Anaerobic Blood Culture Received Blood Peripheral Pending 09/11/16 13:00 Stool Occult Blood (MOY) - Final Complete Stool Stool HEMOCCULT NEGATIVE 09/10/16 05:25 Aerobic Blood Culture - Preliminary Resulted Blood Peripheral NO GROWTH IN 1 DAY 09/10/16 05:25 Anaerobic Blood Culture - Preliminary Resulted Blood Peripheral NO GROWTH IN 1 DAY 09/10/16 05:00 Gram Stain - Final Resulted Wound Abdomen 09/10/16 05:00 Wound Culture - Preliminary Resulted Wound Abdomen NO GROWTH IN 48 HOURS. Cardiovascular: Regular Lungs: Clear Abdomen: Other (lap sites c/d/i; RLQ tenderness ) Extremities: No edema A/P Assessment and Plan 55 year old male s/p ERCP and stent placement and lap cady last week; back with increased abdominal pain and fever at home -MRCP showed LEFT protal vein thrombosis -Hematology consult---started Heparin drip---okay to transition to PO anticoagulation from surgical standpoint -Fever overnight + elevated WBC---ID following -Diet as tolerated Attending Statement patient seen at bedside returned to due to pain finding of thrombosis heme recs anticoagulation Attestation The exam, history, and the medical decision-making described in the above note were completed with the assistance of the mid-level provider. I reviewed and agree with the findings presented. I attest that I had a [id number] encounter with the patient on the same day, and personally performed and documented my assessment and findings in the medical record. Kizzy Moody September 12, 2016 10:29 Jacky Pierson MD September 29, 2016 14:31
--- NOTE | 2016-09-12 10:36 | HHI.IDPN ---
Subjective Subjective Remarks 55 year old male admitted with RUQ and epigastric pain, S/P recent lap cady and ERCP Notes reviewed Temps better overnight Last high fever was yesterday afternoon Still with RUQ pain; epi pain is better No other new complaint BC negative WBC higher LFT better Lipase normal now Antibiotics Zosyn Lines PIV Past Medical History Hypertension Diabetes mellitus type 2 GERD Recent cholecystitis with gallstones and distended CBD Past Surgical History Appendectomy Hernia repair times three. Recent laparoscopic cholecystectomy and ERCP. Allergies: Coded Allergies: No Known Allergies (Unverified , 09/10/16) Objective . Vital Signs Date Time Temp Pulse Resp B/P Pulse Ox O2 Delivery O2 Flow Rate FiO2 09/12/16 08:38 98.4 85 20 160/90 96 09/12/16 04:00 98.4 84 22 140/70 98 09/12/16 00:00 100.1 82 24 145/81 97 09/11/16 20:00 100.2 84 26 134/75 98 09/11/16 16:41 102.0 91 18 141/83 97 09/11/16 13:06 100.5 90 18 151/82 95 09/11/16 09/11/16 09/12/16 15:00 23:00 07:00 Intake Total 240 ml Output Total 1 ml Balance 240 ml -1 ml Intake Oral 240 ml Output Stool Total 1 ml # Voids 4 1 . Laboratory Tests Test 09/11/16 09/12/16 02:56 02:26 White Blood Count 11.2 TH/MM3 12.3 TH/MM3 Red Blood Count 3.63 MIL/MM3 3.85 MIL/MM3 Hemoglobin 9.6 GM/DL 10.1 GM/DL Hematocrit 30.2 % 31.3 % Mean Corpuscular Volume 83.1 FL 81.4 FL Mean Corpuscular Hemoglobin 26.4 PG 26.1 PG Mean Corpuscular Hemoglobin 31.8 % 32.1 % Concent Red Cell Distribution Width 14.9 % 14.6 % Platelet Count 240 TH/MM3 273 TH/MM3 Mean Platelet Volume 9.4 FL 9.1 FL Neutrophils (%) (Auto) 84.9 % Lymphocytes (%) (Auto) 8.5 % Monocytes (%) (Auto) 5.7 % Eosinophils (%) (Auto) 0.4 % Basophils (%) (Auto) 0.5 % Neutrophils # (Auto) 9.5 TH/MM3 Lymphocytes # (Auto) 1.0 TH/MM3 Monocytes # (Auto) 0.6 TH/MM3 Eosinophils # (Auto) 0.0 TH/MM3 Basophils # (Auto) 0.1 TH/MM3 CBC Comment DIFF FINAL Differential Comment Laboratory Tests Test 09/11/16 09/12/16 02:56 02:26 Sodium Level 136 MEQ/L 136 MEQ/L Potassium Level 3.4 MEQ/L 3.4 MEQ/L Chloride Level 100 MEQ/L 101 MEQ/L Carbon Dioxide Level 26.6 MEQ/L 27.4 MEQ/L Anion Gap 9 MEQ/L 8 MEQ/L Blood Urea Nitrogen 9 MG/DL 5 MG/DL Creatinine 0.78 MG/DL 0.76 MG/DL Estimat Glomerular Filtration 103 ML/MIN 106 ML/MIN Rate Random Glucose 153 MG/DL 150 MG/DL Calcium Level 8.2 MG/DL 8.2 MG/DL Total Bilirubin 1.1 MG/DL 0.8 MG/DL Direct Bilirubin 0.5 MG/DL 0.4 MG/DL Indirect Bilirubin 0.6 MG/DL 0.4 MG/DL Aspartate Amino Transf 23 U/L 14 U/L (AST/SGOT) Alanine Aminotransferase 79 U/L 54 U/L (ALT/SGPT) Alkaline Phosphatase 158 U/L 138 U/L Total Protein 6.1 GM/DL 6.3 GM/DL Albumin 1.8 GM/DL 1.7 GM/DL Lipase 184 U/L 95 U/L Microbiology Date/Time Procedure Status Source Growth 09/10/16 05:00 Gram Stain - Final Resulted Wound Abdomen 09/10/16 05:00 Wound Culture - Preliminary Resulted Wound Abdomen NO GROWTH IN 48 HOURS. 09/10/16 05:15 Aerobic Blood Culture - Preliminary Resulted Blood Peripheral NO GROWTH IN 1 DAY 09/10/16 05:15 Anaerobic Blood Culture - Preliminary Resulted Blood Peripheral NO GROWTH IN 1 DAY 09/10/16 05:25 Aerobic Blood Culture - Preliminary Resulted Blood Peripheral NO GROWTH IN 1 DAY 09/10/16 05:25 Anaerobic Blood Culture - Preliminary Resulted Blood Peripheral NO GROWTH IN 1 DAY 09/11/16 13:00 Stool Occult Blood (MOY) - Final Complete Stool Stool HEMOCCULT NEGATIVE 09/11/16 18:14 Aerobic Blood Culture Received Blood Peripheral Pending 09/11/16 18:14 Anaerobic Blood Culture Received Blood Peripheral Pending 09/11/16 18:19 Aerobic Blood Culture Received Blood Peripheral Pending 09/11/16 18:19 Anaerobic Blood Culture Received Blood Peripheral Pending Imaging Last Impressions Chest X-Ray 09/10/16517 Signed Impressions: Service Date/Time: Saturday, September 10, 2016 05:32 - CONCLUSION: 1. No acute cardiopulmonary disease. 2. Hiatal hernia. Shane Kennedy Jr., MD Abdomen/Pelvis CT 09/10/16517 Signed Impressions: Service Date/Time: Saturday, September 10, 2016 06:17 - CONCLUSION: 1. There is a 5.7 x 2.5 cm collection involving the gallbladder fossa. This is a mixture of air and fluid but predominantly air. 2. Mild intrahepatic ductal dilatation involving the left lobe of the liver. 3. Left-sided hydrocele partially seen. 4. Small volume ascites. 5. Small bilateral pleural effusions. Shane Kennedy Jr., MD Cholangiopancreatography MRI 09/10/16 0000 Signed Impressions: Service Date/Time: Saturday, September 10, 2016 13:15 - CONCLUSION: 1. Left portal vein thrombosis. 2. Intrahepatic and extrahepatic biliary ducts within normal limits in diameter. 3. Gas and fluid again seen in the gallbladder fossa. Status post cholecystectomy. Ryan Kim MD Physical Exam GENERAL: awake and alert, in no apparent distress. SKIN: Warm and dry. No generalized rash or ecchymosis. HEAD: Atraumatic. Normocephalic. No temporal or scalp tenderness. EYES: [place] conjunctivae, no petechia or hemorrhage. No scleral icterus. No injection or drainage. ENT: Nose without bleeding, or purulent drainage. Moist oral mucosa, no lesions noted. Throat without erythema, or exudate. . NECK: Trachea midline. No JVD or lymphadenopathy. Supple, nontender, no meningeal signs. CARDIOVASCULAR: Regular rate and rhythm without murmurs, gallops, or rubs. RESPIRATORY: Clear to auscultation. Breath sounds equal bilaterally. No wheezes , rales, or rhonchi. GASTROINTESTINAL: Abdomen distended, bowel sounds are present and hypoactive, with significant tenderness on the right side, no guarding or rebound. Incisions from lap has Steri-Strips in place, with no drainage noted. The incision close to the epigastric area has very mild erythema noted. MUSCULOSKELETAL: Extremities without clubbing, cyanosis, or edema. No joint effusion, or edema noted, and has good ROM.. No calf tenderness. NEUROLOGICAL: Grossly non-focal PSYCH: Normal affect, calm and cooperative. LINE: PIV with no evidence of infection. Previous IV sites with no evidence of phlebitis. Assessment & Plan Remarks IMPRESSION Sepsis syndrome possibly related to recent surgery, though findings with air/ fluid in GB fossa not unusual due to the recent procedure - ?due to portal vein thrombosis - had some elevated lipase, now down to normal, no abnormality seen on imaging studies - CXR clear - UA ok Recent lap cady for acute cholecystitis RECOMMENDATION Continue Zosyn Follow C/S and adjust Abx Heme Rx portal vein thrombosis Monitor temps Monitor progress D/W RN Discussed plan with patient Irma Rehman MD September 12, 2016 10:36
[2016-09-12] MEDS ORDERED: POTASSIUM CHLORIDE 25 MEQ EFFERVESCENT TAB PO ONE (10:45)
[2016-09-12 12:26] LABS: APTT (PATIENT) 34.3 SEC (24.3-30.1)
--- NOTE | 2016-09-12 12:37 | HHI.PR ---
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 --overall improved still febrile, 100.2 no n/v no cp no sob on Heparin gtt Review of Systems Constitutional Constitutional Remarks 12 point ROS completed, negative except as noted above Vitals/Results Intake & Output 09/11/16 09/11/16 09/12/16 15:00 23:00 07:00 Intake Total 240 ml Output Total 1 ml Balance 240 ml -1 ml Intake Oral 240 ml Output Stool Total 1 ml # Voids 4 1 Vital Signs Vital Signs Date Time Temp Pulse Resp B/P Pulse Ox O2 Delivery O2 Flow Rate FiO2 09/12/16 12:24 95 21 09/12/16 08:38 98.4 85 20 160/90 96 09/12/16 04:00 98.4 84 22 140/70 98 09/12/16 00:00 100.1 82 24 145/81 97 09/11/16 20:00 100.2 84 26 134/75 98 09/11/16 16:41 102.0 91 18 141/83 97 09/11/16 13:06 100.5 90 18 151/82 95 CBC/BMP: 09/12/16 0226 09/12/16 0226 Lab Results Laboratory Tests Test 09/11/16 09/12/16 09/12/16 18:19 02:26 11:42 Activated Partial 31.3 SEC 35.7 SEC 34.3 SEC Thromboplast Time White Blood Count 12.3 TH/MM3 Red Blood Count 3.85 MIL/MM3 Hemoglobin 10.1 GM/DL Hematocrit 31.3 % Mean Corpuscular Volume 81.4 FL Mean Corpuscular Hemoglobin 26.1 PG Mean Corpuscular Hemoglobin 32.1 % Concent Red Cell Distribution Width 14.6 % Platelet Count 273 TH/MM3 Mean Platelet Volume 9.1 FL Sodium Level 136 MEQ/L Potassium Level 3.4 MEQ/L Chloride Level 101 MEQ/L Carbon Dioxide Level 27.4 MEQ/L Anion Gap 8 MEQ/L Blood Urea Nitrogen 5 MG/DL Creatinine 0.76 MG/DL Estimat Glomerular Filtration 106 ML/MIN Rate Random Glucose 150 MG/DL Calcium Level 8.2 MG/DL Total Bilirubin 0.8 MG/DL Direct Bilirubin 0.4 MG/DL Indirect Bilirubin 0.4 MG/DL Aspartate Amino Transf 14 U/L (AST/SGOT) Alanine Aminotransferase 54 U/L (ALT/SGPT) Alkaline Phosphatase 138 U/L Total Protein 6.3 GM/DL Albumin 1.7 GM/DL Lipase 95 U/L Microbiology Microbiology 09/11/16 Stool Occult Blood (MOY) - Final, Complete HEMOCCULT NEGATIVE 09/11/16 Aerobic Blood Culture - Preliminary, Resulted NO GROWTH IN 1 DAY 09/11/16 Anaerobic Blood Culture - Preliminary, Resulted NO GROWTH IN 1 DAY 09/11/16 Aerobic Blood Culture - Preliminary, Resulted NO GROWTH IN 1 DAY 09/11/16 Anaerobic Blood Culture - Preliminary, Resulted NO GROWTH IN 1 DAY Physical Exam General General Appearance: Well Developed, Well Nourished, No Acute Distress, Comfortable Eyes Eye Exam: Pupils Equal, Pupils Reactive Ears & Nose Ears & Nose Exam: Nasal Mucosa [place] Throat Throat Exam: Oral Mucosa [place] & Moist Neck Neck Exam: Neck Supple, Trachea Midline Pulmonary Resp Exam: No Distress Cardiology CV Exam: Regular, Good Perfusion Gastrointestinal/Abdomen GI Exam: Soft, Bowel Sounds Present, Distended GI Remarks abd. distended, incisions intact, tender to palpation Musculoskeletal MS Exam: Joints Intact Integumentary Skin Exam: Warm, Dry Extremeties Extremities Exam: No Edema, Pedal Pulses Palpable Neurologic Neuro Exam: Alert, Awake, Oriented, Speech Clear, Moving All Extremities, No Focal Deficits Psychiatric Psych Exam: Appropriate Responses VTE Prophylaxis VTE Prophylaxis Meds: Heparin Assessment/Plan Problem List: (1) Sepsis (2) Pancreatitis (3) Portal vein thrombosis (4) Postoperative fever (5) Diabetes 1.5, managed as type 2 (6) HTN (hypertension) (7) GERD (gastroesophageal reflux disease) (8) Hypokalemia (9) s/p ERCP and stent placement and lap cady l Assessment/Plan S/P ERCP and stent placement and lap cady, presented with fever and abd. tenderness Surgery following, input appreciated ok to proceed with anticoagulation sepsis, still febrile, no evidence of infection, some fluid around GB fossa ( expected findings after surgery) poss due to thrombus ID following continue abx remains febrile follow cultures, negative so far. WBC trending down elevated lipase, no pancreatitis lipase now normal portal vein thrombosis, on heparin gtt will be transition to oral anticoagulation soon hematology following Replace K BMP in am Hypertension, controlled now with patient's medicines monitor closely GERD, PPI medical management Diabetes mellitus type 2, Accu-Cheks before meals and at bedtime with sliding scale Replace K OOB to ambulate IS q 2 Labs in am D/W RN D/W Dr. Morrison D/W pt This patient was seen by myself and Dr. oMrrison, this note is written on his behalf. Problem Qualifiers (1) Sepsis: Qualified Code: A41.9 - Sepsis, due to unspecified organism (2) Pancreatitis: Qualified Code: K85.90 - Acute pancreatitis, unspecified complication status, unspecified pancreatitis type (3) HTN (hypertension): Qualified Code: I10 - Essential hypertension (4) GERD (gastroesophageal reflux disease): Qualified Code: K21.9 - Gastroesophageal reflux disease, esophagitis presence not specified Karen Greenberg September 12, 2016 12:36
[2016-09-12] MEDS: HYDROmorphone HCL PF 1 MG/ML VIAL IV PRN ×2 (16:47→22:13)
[2016-09-12 20:14] LABS: APTT (PATIENT) 32.4 SEC (24.3-30.1)
[2016-09-12] MEDS: APIXABAN 5 MG TABLET PO SCH (22:06)
[2016-09-13] VITALS: BP 126/66; PULSE 80; RESP 18; TEMP 99; O2SAT 95
[2016-09-13] MEDS ORDERED: PHARMACY ORDERED LAB ONE (01:45)
[2016-09-13] MEDS: oxyCODONE/ACETAMINOPHEN 10 MG/325 MG TAB PO PRN ×5 (02:51→21:21)
[2016-09-13] MEDS: PIPERACIL-TAZO 3.375 GM PREMIX 50 ML IV SCH ×4 (02:52→21:20)
[2016-09-13 04:30] VITALS: BP 136/75; PULSE 86; RESP 17; TEMP 99.4; O2SAT 96
[2016-09-13] MEDS: HYDROmorphone HCL PF 1 MG/ML VIAL IV PRN ×4 (05:59→21:21)
[2016-09-13] MEDS: LOW DOSE INSULIN NOVOLOG SUPPLEMENTAL SCALE SQ SCH ×4 (06:08→21:00)
[2016-09-13 08:06] LABS: ALKALINE PHOSPHATASE 152 U/L (45-117); ALT (GPT) 43 U/L (12-78); ANION GAP 10 MEQ/L (5-15); AST (GOT) 13 U/L (15-37); BICARBONATE 29.2 MEQ/L (21.0-32.0); BLOOD UREA NITROGEN 5 MG/DL (7-18); CHLORIDE 96 MEQ/L (98-107); GLOMERULAR FILTRATION RATE 78 ML/MIN (>89); SODIUM (NA) 135 MEQ/L (136-145); TOTAL BILIRUBIN ADULT 0.8 MG/DL (0.2-1.0)
[2016-09-13 08:41] VITALS: BP 140/77; PULSE 80; RESP 20; TEMP 98.9; O2SAT 97
[2016-09-13] MEDS: SODIUM CHLORIDE 0.9% FLUSH 10 ML FLUSH IV FLUSH SCH ×2 (09:00→21:00)
[2016-09-13] MEDS: APIXABAN 5 MG TABLET PO SCH ×2 (10:03→21:22)
--- NOTE | 2016-09-13 10:07 | HHI.IDPN ---
Subjective Subjective Remarks 55 year old male admitted with RUQ and epigastric pain, S/P recent lap cady and ERCP Notes reviewed Still with fevers, not as frequent Still with significant pain in his RUQ The incision in R epigastric area - opened up by surgery - spoke with Riaz ALDRIDGE, has small amount of purulence, now with packing and has bloody discharge No other new complaint BC negative LFT better Lipase normal now Antibiotics Zosyn Lines PIV Past Medical History Hypertension Diabetes mellitus type 2 GERD Recent cholecystitis with gallstones and distended CBD Past Surgical History Appendectomy Hernia repair times three. Recent laparoscopic cholecystectomy and ERCP. Allergies: Coded Allergies: No Known Allergies (Unverified , 09/10/16) Objective . Vital Signs Date Time Temp Pulse Resp B/P Pulse Ox O2 Delivery O2 Flow Rate FiO2 09/13/16 08:41 98.9 80 20 140/77 97 09/13/16 04:30 99.4 86 17 136/75 96 09/13/16 00:00 99.0 80 18 126/66 95 09/12/16 20:40 100.9 95 17 129/69 94 09/12/16 16:00 100.0 86 20 136/80 98 09/12/16 12:24 95 21 09/12/16 12:00 98.9 77 20 127/60 98 09/12/16 09/12/16 09/13/16 15:00 23:00 07:00 Intake Total 600 ml 800 ml 800 ml Balance 600 ml 800 ml 800 ml Intake Oral 600 ml 800 ml 800 ml # Voids 4 1 3 # Bowel Movements 1 0 0 . Laboratory Tests Test 09/12/16 02:26 White Blood Count 12.3 TH/MM3 Red Blood Count 3.85 MIL/MM3 Hemoglobin 10.1 GM/DL Hematocrit 31.3 % Mean Corpuscular Volume 81.4 FL Mean Corpuscular Hemoglobin 26.1 PG Mean Corpuscular Hemoglobin 32.1 % Concent Red Cell Distribution Width 14.6 % Platelet Count 273 TH/MM3 Mean Platelet Volume 9.1 FL Laboratory Tests Test 09/12/16 09/13/16 02:26 06:59 Sodium Level 136 MEQ/L 135 MEQ/L Potassium Level 3.4 MEQ/L 3.0 MEQ/L Chloride Level 101 MEQ/L 96 MEQ/L Carbon Dioxide Level 27.4 MEQ/L 29.2 MEQ/L Anion Gap 8 MEQ/L 10 MEQ/L Blood Urea Nitrogen 5 MG/DL 5 MG/DL Creatinine 0.76 MG/DL 0.99 MG/DL Estimat Glomerular Filtration 106 ML/MIN 78 ML/MIN Rate Random Glucose 150 MG/DL 195 MG/DL Calcium Level 8.2 MG/DL 8.7 MG/DL Total Bilirubin 0.8 MG/DL 0.8 MG/DL Direct Bilirubin 0.4 MG/DL Indirect Bilirubin 0.4 MG/DL Aspartate Amino Transf 14 U/L 13 U/L (AST/SGOT) Alanine Aminotransferase 54 U/L 43 U/L (ALT/SGPT) Alkaline Phosphatase 138 U/L 152 U/L Total Protein 6.3 GM/DL 7.7 GM/DL Albumin 1.7 GM/DL 1.9 GM/DL Lipase 95 U/L Microbiology Date/Time Procedure Status Source Growth 09/11/16 13:00 Stool Occult Blood (MOY) - Final Complete Stool Stool HEMOCCULT NEGATIVE 09/11/16 18:14 Aerobic Blood Culture - Preliminary Resulted Blood Peripheral NO GROWTH IN 1 DAY 09/11/16 18:14 Anaerobic Blood Culture - Preliminary Resulted Blood Peripheral NO GROWTH IN 1 DAY 09/11/16 18:19 Aerobic Blood Culture - Preliminary Resulted Blood Peripheral NO GROWTH IN 1 DAY 09/11/16 18:19 Anaerobic Blood Culture - Preliminary Resulted Blood Peripheral NO GROWTH IN 1 DAY Imaging Last Impressions Chest X-Ray 09/10/16517 Signed Impressions: Service Date/Time: Saturday, September 10, 2016 05:32 - CONCLUSION: 1. No acute cardiopulmonary disease. 2. Hiatal hernia. Shane Kennedy Jr., MD Abdomen/Pelvis CT 09/10/16517 Signed Impressions: Service Date/Time: Saturday, September 10, 2016 06:17 - CONCLUSION: 1. There is a 5.7 x 2.5 cm collection involving the gallbladder fossa. This is a mixture of air and fluid but predominantly air. 2. Mild intrahepatic ductal dilatation involving the left lobe of the liver. 3. Left-sided hydrocele partially seen. 4. Small volume ascites. 5. Small bilateral pleural effusions. Shane Kennedy Jr., MD Cholangiopancreatography MRI 09/10/16 0000 Signed Impressions: Service Date/Time: Saturday, September 10, 2016 13:15 - CONCLUSION: 1. Left portal vein thrombosis. 2. Intrahepatic and extrahepatic biliary ducts within normal limits in diameter. 3. Gas and fluid again seen in the gallbladder fossa. Status post cholecystectomy. Ryan Kim MD Physical Exam GENERAL: awake and alert,NAD SKIN: Warm and dry. No generalized rash or ecchymosis. HEAD: Atraumatic. Normocephalic. No temporal or scalp tenderness. EYES: [place] conjunctivae, no petechia or hemorrhage. No scleral icterus. No injection or drainage. ENT: Nose without bleeding, or purulent drainage. Moist oral mucosa, no lesions noted. Throat without erythema, or exudate. . NECK: Trachea midline. No JVD or lymphadenopathy. Supple, nontender, no meningeal signs. CARDIOVASCULAR: Regular rate and rhythm without murmurs, gallops, or rubs. RESPIRATORY: Clear to auscultation. Breath sounds equal bilaterally. No wheezes , rales, or rhonchi. GASTROINTESTINAL: Abdomen distended, bowel sounds are present and hypoactive, with significant tenderness on the right side, no guarding or rebound. Incisions from lap has Steri-Strips in place, with no drainage noted. The incision close to the epigastric area now with packing and has bloody discharge. MUSCULOSKELETAL: Extremities without clubbing, cyanosis, or edema. No calf tenderness. NEUROLOGICAL: Grossly non-focal PSYCH: Normal affect, calm and cooperative. LINE: PIV with no evidence of infection. Previous IV sites with no evidence of phlebitis. Assessment & Plan Remarks IMPRESSION Sepsis syndrome possibly related to recent surgery, though findings with air/ fluid in GB fossa not unusual due to the recent procedure - ?due to portal vein thrombosis - had some elevated lipase, now down to normal, no abnormality seen on imaging studies - CXR clear - UA ok - has a small superifical wound infection in one of incisions, dont think this is causing the fevers Fevers, not as frequent Persistent pain in RUQ. ?due to thrombosis, or other cause Recent lap cady for acute cholecystitis RECOMMENDATION Continue Zosyn Follow C/S and adjust Abx Heme Rx portal vein thrombosis Monitor temps Monitor progress ?Re CT since he is still having fevers, ?new finding D/W patient Spoke with Riaz ALDRIDGE Other ID MD covering for wa 09/14-09/16 Irma Rehman MD September 13, 2016 10:07
--- NOTE | 2016-09-13 10:49 | HHI.PR ---
Subjective Subjective Notes Resting in bed in the room Reports pain more localized to RLQ Wants to shower Objective Vitals/I&O Vital Signs Date Time Temp Pulse Resp B/P Pulse Ox O2 Delivery O2 Flow Rate FiO2 09/13/16 08:41 98.9 80 20 140/77 97 09/12/16 12:24 21 09/10/16 07:53 Room Air Labs Laboratory Tests Test 09/12/16 09/12/16 09/13/16 11:42 19:33 06:59 Activated Partial 34.3 32.4 Thromboplast Time Sodium Level 135 Potassium Level 3.0 Chloride Level 96 Carbon Dioxide Level 29.2 Anion Gap 10 Blood Urea Nitrogen 5 Creatinine 0.99 Estimat Glomerular Filtration 78 Rate Random Glucose 195 Calcium Level 8.7 Total Bilirubin 0.8 Aspartate Amino Transf 13 (AST/SGOT) Alanine Aminotransferase 43 (ALT/SGPT) Alkaline Phosphatase 152 Total Protein 7.7 Albumin 1.9 Date/Time Procedure Status Source Growth 09/11/16 18:19 Aerobic Blood Culture - Preliminary Resulted Blood Peripheral NO GROWTH IN 1 DAY 09/11/16 18:19 Anaerobic Blood Culture - Preliminary Resulted Blood Peripheral NO GROWTH IN 1 DAY 09/11/16 13:00 Stool Occult Blood (MOY) - Final Complete Stool Stool HEMOCCULT NEGATIVE 09/10/16 05:00 Gram Stain - Final Complete Wound Abdomen 09/10/16 05:00 Wound Culture - Final Complete Wound Abdomen NO GROWTH IN 72 HRS.--AEROBICALLY OR ... Cardiovascular: Regular Lungs: Clear Abdomen: Other (mildly distended; RUQ lap site with redness----opened at bedside and drained appx 5 cc of purulent bloody drainage; other lap sites c/d/ i ) Extremities: No edema A/P Assessment and Plan 55 year old male s/p ERCP and stent placement and lap cady last week; back with increased abdominal pain and fever at home -MRCP showed LEFT protal vein thrombosis -Hematology consult---Started on Eliquis -Tmax overnight 100.9 -Dressing change to open laparoscopy site--- moist 2x2 packed into wound opening and covered with 4x4 -Okay to shower between dressing changes -Diet as tolerated Attending Statement patient seen at bedside pack incision site low grade fevers feeling better Attestation The exam, history, and the medical decision-making described in the above note were completed with the assistance of the mid-level provider. I reviewed and agree with the findings presented. I attest that I had a [id number] encounter with the patient on the same day, and personally performed and documented my assessment and findings in the medical record. Kizzy Moody September 13, 2016 10:49 Jacky Pierson MD September 29, 2016 14:32
[2016-09-13] MEDS: PANTOPRAZOLE SODIUM 40 MG VIAL IV PUSH SCH (10:58)
[2016-09-13 12:00] VITALS: BP 138/77; PULSE 77; RESP 20; TEMP 99; O2SAT 98
--- NOTE | 2016-09-13 14:12 | HHI.PR ---
Subjective Subjective Remarks abd. tender, more to middle top, around incision. abd. distended, no bm fevers max 100.9 no cp no sob has been ambulating eating well no n/v Review of Systems Constitutional Constitutional Remarks 12 point ROS completed, negative except as noted above Vitals/Results Intake & Output 09/12/16 09/12/16 09/13/16 15:00 23:00 07:00 Intake Total 600 ml 800 ml 800 ml Balance 600 ml 800 ml 800 ml Intake Oral 600 ml 800 ml 800 ml # Voids 4 1 3 # Bowel Movements 1 0 0 Vital Signs Vital Signs Date Time Temp Pulse Resp B/P Pulse Ox O2 Delivery O2 Flow Rate FiO2 09/13/16 08:41 98.9 80 20 140/77 97 09/13/16 04:30 99.4 86 17 136/75 96 09/13/16 00:00 99.0 80 18 126/66 95 09/12/16 20:40 100.9 95 17 129/69 94 09/12/16 16:00 100.0 86 20 136/80 98 CBC/BMP: 09/12/16 0226 09/13/16 0659 Lab Results Laboratory Tests Test 09/12/16 09/13/16 19:33 06:59 Activated Partial 32.4 SEC Thromboplast Time Sodium Level 135 MEQ/L Potassium Level 3.0 MEQ/L Chloride Level 96 MEQ/L Carbon Dioxide Level 29.2 MEQ/L Anion Gap 10 MEQ/L Blood Urea Nitrogen 5 MG/DL Creatinine 0.99 MG/DL Estimat Glomerular Filtration 78 ML/MIN Rate Random Glucose 195 MG/DL Calcium Level 8.7 MG/DL Total Bilirubin 0.8 MG/DL Aspartate Amino Transf 13 U/L (AST/SGOT) Alanine Aminotransferase 43 U/L (ALT/SGPT) Alkaline Phosphatase 152 U/L Total Protein 7.7 GM/DL Albumin 1.9 GM/DL Physical Exam General General Appearance: Well Developed, Well Nourished, No Acute Distress, Comfortable Eyes Eye Exam: Pupils Equal, Pupils Reactive Ears & Nose Ears & Nose Exam: Nasal Mucosa [place] Throat Throat Exam: Oral Mucosa [place] & Moist Neck Neck Exam: Neck Supple, Trachea Midline Pulmonary Resp Exam: No Distress Cardiology CV Exam: Regular, Good Perfusion Gastrointestinal/Abdomen GI Exam: Bowel Sounds Present, Distended GI Remarks abd. distended, tender to palpation mid upper incision packed, sanguineous drainage noted Musculoskeletal MS Exam: Joints Intact Integumentary Skin Exam: Warm, Dry Extremeties Extremities Exam: No Edema, Pedal Pulses Palpable Neurologic Neuro Exam: Alert, Awake, Oriented, Speech Clear, Moving All Extremities, No Focal Deficits Psychiatric Psych Exam: Appropriate Responses VTE Prophylaxis VTE Prophylaxis Meds: Heparin Assessment/Plan Problem List: (1) Sepsis (2) Pancreatitis (3) Portal vein thrombosis (4) Postoperative fever (5) Diabetes 1.5, managed as type 2 (6) HTN (hypertension) (7) GERD (gastroesophageal reflux disease) (8) Hypokalemia (9) s/p ERCP and stent placement and lap cady l Assessment/Plan S/P ERCP and stent placement and lap cady, presented with fever and abd. tenderness Surgery following, input appreciated ok to proceed with anticoagulation incision upper top tender, -surgery changed dressing, opened site, expressed some purulent drainage. Now packed with moist dressing. sepsis, still febrile, no evidence of infection, some fluid around GB fossa ( expected findings after surgery) poss due to thrombus ID following continue abx remains febrile, although not as frequent follow cultures, negative so far. elevated lipase, no pancreatitis lipase now normal portal vein thrombosis, on heparin gtt until 1999 then will be staring Eliquis hematology following work up in progress Replace K BMP in am Hypertension, controlled now with patient's medicines monitor closely GERD, PPI medical management Diabetes mellitus type 2, Accu-Cheks before meals and at bedtime with sliding scale Replace K constipated, Lactulose daily PRN OOB to ambulate IS q 2 Labs in am D/W RN D/W Dr. Morrison D/W pt This patient was seen by myself and Dr. Morrison, this note is written on his behalf. Problem Qualifiers (1) Sepsis: Qualified Code: A41.9 - Sepsis, due to unspecified organism (2) Pancreatitis: Qualified Code: K85.90 - Acute pancreatitis, unspecified complication status, unspecified pancreatitis type (3) HTN (hypertension): Qualified Code: I10 - Essential hypertension (4) GERD (gastroesophageal reflux disease): Qualified Code: K21.9 - Gastroesophageal reflux disease, esophagitis presence not specified Karen Greenberg September 13, 2016 14:12
[2016-09-13] MEDS ORDERED: POTASSIUM CHLORIDE 25 MEQ EFFERVESCENT TAB PO ONE (15:00)
[2016-09-13] MEDS ORDERED: LACTULOSE SYRUP 20 GM/30 ML CUP PO ONE (15:00)
[2016-09-13 16:00] VITALS: BP 131/75; PULSE 81; RESP 20; TEMP 98.8; O2SAT 98
[2016-09-13 20:00] VITALS: BP 163/87; PULSE 92; RESP 20; TEMP 100.3; O2SAT 97
--- NOTE | 2016-09-13 23:14 | PD.ONC.PN ---
Subjective Subjective Remarks mild abdominal pain no bleeding low grade fevers f/u for portal vein thrombosis Objective Data Date Time Temp Pulse Resp B/P Pulse Ox O2 Delivery O2 Flow Rate FiO2 09/13/16 20:00 100.3 92 20 163/87 97 09/13/16 16:00 98.8 81 20 131/75 98 09/13/16 16:00 98.8 81 20 131/75 98 09/13/16 12:00 99.0 77 20 138/77 98 09/13/16 08:41 98.9 80 20 140/77 97 09/13/16 04:30 99.4 86 17 136/75 96 09/13/16 00:00 99.0 80 18 126/66 95 09/13/16 09/13/16 09/13/16 06:59 14:59 22:59 Intake Total 800 ml 480 ml Balance 800 ml 480 ml Result Diagram: 09/12/16 0226 09/13/16 0659 Laboratory Results Laboratory Tests Test 09/13/16 06:59 Sodium Level 135 MEQ/L Potassium Level 3.0 MEQ/L Chloride Level 96 MEQ/L Carbon Dioxide Level 29.2 MEQ/L Anion Gap 10 MEQ/L Blood Urea Nitrogen 5 MG/DL Creatinine 0.99 MG/DL Estimat Glomerular Filtration 78 ML/MIN Rate Random Glucose 195 MG/DL Calcium Level 8.7 MG/DL Total Bilirubin 0.8 MG/DL Aspartate Amino Transf 13 U/L (AST/SGOT) Alanine Aminotransferase 43 U/L (ALT/SGPT) Alkaline Phosphatase 152 U/L Total Protein 7.7 GM/DL Albumin 1.9 GM/DL Anti-Nuclear Antibody Screen NEG Culture Results Microbiology Date/Time Procedure Status Source Growth 09/11/16 13:00 Stool Occult Blood (MOY) - Final Complete Stool Stool HEMOCCULT NEGATIVE 09/11/16 18:14 Aerobic Blood Culture - Preliminary Resulted Blood Peripheral NO GROWTH IN 2 DAYS 09/11/16 18:14 Anaerobic Blood Culture - Preliminary Resulted Blood Peripheral NO GROWTH IN 2 DAYS 09/11/16 18:19 Aerobic Blood Culture - Preliminary Resulted Blood Peripheral NO GROWTH IN 2 DAYS 09/11/16 18:19 Anaerobic Blood Culture - Preliminary Resulted Blood Peripheral NO GROWTH IN 2 DAYS Administered Medications Medications (Trade) Dose Ordered Sig/Cezar Route PRN Reason Start Time Stop Time Status Last Admin Dose Admin Sodium Chloride (NS 1000 ml Inj) 1,000 ml @ 50 mls/hr Q20H IV 09/10/16 06:48 09/12/16 18:53 Sodium Chloride (NS Flush) 2 ml BID IV FLUSH 09/10/16 09:00 09/13/16 21:00 Pantoprazole Sodium (Protonix Inj) 40 mg Q24H IV PUSH 09/10/16 10:15 09/13/16 10:58 Hydromorphone HCl (Dilaudid Pf Inj) 0.5 mg Q4H PRN IV PAIN SCALE 6 TO 10 09/10/16 13:15 09/13/16 21:21 Oxycodone/ Acetaminophen 1 tab 1 tab Q4H PRN PO BREAKTHROUGH PAIN 09/11/16 15:15 09/13/16 21:21 Piperacillin Sod/ Tazobactam Sod (Zosyn 3.375 Gm Premix) 50 ml @ 100 mls/hr Q6H IV 09/11/16 20:00 09/13/16 21:20 Apixaban (Eliquis) 10 mg BID PO 09/12/16 21:00 09/19/16 09:01 09/13/16 21:22 Objective Remarks GENERAL: nad SKIN: Warm and dry. NECK: Supple, trachea midline. No JVD or lymphadenopathy. LYMPHATIC: No adenopathy. CARDIOVASCULAR: Regular rate and rhythm without murmurs. RESPIRATORY: Breath sounds equal bilaterally. No accessory muscle use. GASTROINTESTINAL: Abdomen soft, tenderness right quadrant EXTREMITIES: No cyanosis, or edema. Assessment/Plan Problem List: (1) Portal vein thrombosis Status: Acute Plan: -- Continue heparin gtt -- Will likely transition him to an oral anticoagulant once all procedures are complete -- Thrombus can be explained by recent sx procedure, we will plan to keep him on anticoagulation for 3 months. Hx/Workup: Mr. Roberto is a 55-year-old male who presented to the [facility] with abdominal pain on September 02. He was found to have acute cholecystitis and he underwent an ERCP and laparoscopic cholecystectomy. His BRIAN drain was removed prior to his discharge on September 06. After discharge he developed intense R side abdominal pain with fever and returned to the ER. Imaging on this admission included a cholangiopancreatography MRI that revealed a L side portal vein thrombosis. (2) Postoperative fever Status: Acute Plan: -- Acute pancreatitis -- BC pending -- On Zosyn and Flagyl Assessment 55 y/o male who recently had cholecystectomy presents to the ER with c/o R side abdominal pain and fevers. Plan 1. continue eliquis . 2. Continue ABX, supportive care. 3. Monitor CBC Jorge Hubbard MD September 13, 2016 23:14
[2016-09-14] VITALS: BP 114/67; PULSE 93; RESP 20; TEMP 101; O2SAT 93
[2016-09-14] MEDS: PIPERACIL-TAZO 3.375 GM PREMIX 50 ML IV SCH ×4 (02:00→22:58)
[2016-09-14 04:00] VITALS: BP 141/88; PULSE 89; RESP 20; TEMP 99.5; O2SAT 97
[2016-09-14] MEDS: oxyCODONE/ACETAMINOPHEN 10 MG/325 MG TAB PO PRN ×5 (05:05→22:53)
[2016-09-14] MEDS: HYDROmorphone HCL PF 1 MG/ML VIAL IV PRN ×4 (05:06→21:48)
[2016-09-14] MEDS: LOW DOSE INSULIN NOVOLOG SUPPLEMENTAL SCALE SQ SCH ×3 (06:09→17:58)
[2016-09-14 08:16] VITALS: BP 146/82; PULSE 85; RESP 18; TEMP 98.3; O2SAT 97
[2016-09-14] MEDS: APIXABAN 5 MG TABLET PO SCH ×2 (08:50→22:58)
[2016-09-14] MEDS: SODIUM CHLORIDE 0.9% FLUSH 10 ML FLUSH IV FLUSH SCH ×2 (08:50→21:00)
[2016-09-14 08:56] LABS: HEMATOCRIT 28.2 % (39.0-51.0); MEAN CELL VOLUME 82.9 FL (80.0-100.0); MEAN CORPUSCULAR HEMOGLOBIN 26.4 PG (27.0-34.0); MEAN CORPUSCULAR HGB CONC 31.8 % (32.0-36.0); PLATELET COUNT 314 TH/MM3 (150-450); RED CELL DISTRIBUTION WIDTH 14.7 % (11.6-17.2); REVIEW FLAG FINAL; WHITE BLOOD COUNT 7.4 TH/MM3 (4.0-11.0)
[2016-09-14] MEDS ORDERED: LACTULOSE SYRUP 20 GM/30 ML CUP PO PRN (09:00)
[2016-09-14 09:17] LABS: BICARBONATE 29.8 MEQ/L (21.0-32.0); POTASSIUM 3.1 MEQ/L (3.5-5.1)
--- NOTE | 2016-09-14 11:03 | HHI.PR ---
Subjective Subjective Remarks abd. tender, more to middle top, around incision. abd. distended, no bm fevers max 100.9 no cp no sob has been ambulating eating well no n/v Review of Systems Constitutional Constitutional Remarks 12 point ROS completed, negative except as noted above Vitals/Results Intake & Output 09/13/16 09/13/16 09/14/16 15:00 23:00 07:00 Intake Total 480 ml 240 ml Balance 480 ml 240 ml Intake Oral 480 ml 240 ml # Voids 4 1 1 # Bowel Movements 1 0 Vital Signs Vital Signs Date Time Temp Pulse Resp B/P Pulse Ox O2 Delivery O2 Flow Rate FiO2 09/14/16 08:16 98.3 85 18 146/82 97 09/14/16 04:00 99.5 89 20 141/88 97 09/14/16 00:00 101.0 93 20 114/67 93 09/13/16 20:00 100.3 92 20 163/87 97 09/13/16 16:00 98.8 81 20 131/75 98 09/13/16 16:00 98.8 81 20 131/75 98 09/13/16 12:00 99.0 77 20 138/77 98 CBC/BMP: 09/14/16 0809 09/14/16 0809 Lab Results Laboratory Tests Test 09/14/16 08:09 White Blood Count 7.4 TH/MM3 Red Blood Count 3.40 MIL/MM3 Hemoglobin 8.9 GM/DL Hematocrit 28.2 % Mean Corpuscular Volume 82.9 FL Mean Corpuscular Hemoglobin 26.4 PG Mean Corpuscular Hemoglobin 31.8 % Concent Red Cell Distribution Width 14.7 % Platelet Count 314 TH/MM3 Mean Platelet Volume 8.9 FL Sodium Level 134 MEQ/L Potassium Level 3.1 MEQ/L Chloride Level 95 MEQ/L Carbon Dioxide Level 29.8 MEQ/L Anion Gap 9 MEQ/L Blood Urea Nitrogen 5 MG/DL Creatinine 0.94 MG/DL Estimat Glomerular Filtration 83 ML/MIN Rate Random Glucose 277 MG/DL Calcium Level 8.1 MG/DL Physical Exam General General Appearance: Well Developed, Well Nourished, No Acute Distress, Comfortable Eyes Eye Exam: Pupils Equal, Pupils Reactive Ears & Nose Ears & Nose Exam: Nasal Mucosa [place] Throat Throat Exam: Oral Mucosa [place] & Moist Neck Neck Exam: Neck Supple, Trachea Midline Pulmonary Resp Exam: No Distress Cardiology CV Exam: Regular, Good Perfusion Gastrointestinal/Abdomen GI Exam: Bowel Sounds Present, Distended GI Remarks abd. distended, tender to palpation mid upper incision packed, sanguineous drainage noted Musculoskeletal MS Exam: Joints Intact Integumentary Skin Exam: Warm, Dry Extremeties Extremities Exam: No Edema, Pedal Pulses Palpable Neurologic Neuro Exam: Alert, Awake, Oriented, Speech Clear, Moving All Extremities, No Focal Deficits Psychiatric Psych Exam: Appropriate Responses VTE Prophylaxis VTE Prophylaxis Meds: Heparin Assessment/Plan Problem List: (1) Sepsis (2) Pancreatitis (3) Portal vein thrombosis (4) Postoperative fever (5) Diabetes 1.5, managed as type 2 (6) HTN (hypertension) (7) GERD (gastroesophageal reflux disease) (8) Hypokalemia (9) s/p ERCP and stent placement and lap cady l Assessment/Plan S/P ERCP and stent placement and lap cady, presented with fever and abd. tenderness Surgery following, input appreciated ok to proceed with anticoagulation incision upper top tender, -surgery changed dressing, opened site, expressed some purulent drainage. Now packed with moist dressing. sepsis, still febrile, no evidence of infection, some fluid around GB fossa ( expected findings after surgery) poss due to thrombus ID following continue abx remains febrile, although not as frequent follow cultures, negative so far. elevated lipase, no pancreatitis lipase now normal portal vein thrombosis, on heparin gtt until 1999 then will be staring Eliquis hematology following work up in progress Replace K BMP in am Hypertension, controlled now with patient's medicines monitor closely GERD, PPI medical management Diabetes mellitus type 2, Accu-Cheks before meals and at bedtime with sliding scale Replace K constipated, Lactulose daily PRN OOB to ambulate IS q 2 Labs in am D/W RN D/W Dr. Morrison D/W pt This patient was seen by myself and Dr. Morrison, this note is written on his behalf. Problem Qualifiers (1) Sepsis: Qualified Code: A41.9 - Sepsis, due to unspecified organism (2) Pancreatitis: Qualified Code: K85.90 - Acute pancreatitis, unspecified complication status, unspecified pancreatitis type (3) HTN (hypertension): Qualified Code: I10 - Essential hypertension (4) GERD (gastroesophageal reflux disease): Qualified Code: K21.9 - Gastroesophageal reflux disease, esophagitis presence not specified Karen Greenberg September 14, 2016 11:03
--- NOTE | 2016-09-14 11:19 | HHI.PR ---
Subjective Subjective Remarks abd tender RLQ, very little to upper abd. febrile with rigors overnight, max 101 fever spikes less frequent no cp no sob no diarrhea using IS and walking no bm yet, passing gas Review of Systems Constitutional Constitutional Remarks 12 point ROS completed, negative except as noted above Vitals/Results Intake & Output 09/13/16 09/13/16 09/14/16 15:00 23:00 07:00 Intake Total 480 ml 240 ml Balance 480 ml 240 ml Intake Oral 480 ml 240 ml # Voids 4 1 1 # Bowel Movements 1 0 Vital Signs Vital Signs Date Time Temp Pulse Resp B/P Pulse Ox O2 Delivery O2 Flow Rate FiO2 09/14/16 08:16 98.3 85 18 146/82 97 09/14/16 04:00 99.5 89 20 141/88 97 09/14/16 00:00 101.0 93 20 114/67 93 09/13/16 20:00 100.3 92 20 163/87 97 09/13/16 16:00 98.8 81 20 131/75 98 09/13/16 16:00 98.8 81 20 131/75 98 09/13/16 12:00 99.0 77 20 138/77 98 CBC/BMP: 09/14/16 0809 09/14/16 0809 Lab Results Laboratory Tests Test 09/14/16 08:09 White Blood Count 7.4 TH/MM3 Red Blood Count 3.40 MIL/MM3 Hemoglobin 8.9 GM/DL Hematocrit 28.2 % Mean Corpuscular Volume 82.9 FL Mean Corpuscular Hemoglobin 26.4 PG Mean Corpuscular Hemoglobin 31.8 % Concent Red Cell Distribution Width 14.7 % Platelet Count 314 TH/MM3 Mean Platelet Volume 8.9 FL Sodium Level 134 MEQ/L Potassium Level 3.1 MEQ/L Chloride Level 95 MEQ/L Carbon Dioxide Level 29.8 MEQ/L Anion Gap 9 MEQ/L Blood Urea Nitrogen 5 MG/DL Creatinine 0.94 MG/DL Estimat Glomerular Filtration 83 ML/MIN Rate Random Glucose 277 MG/DL Calcium Level 8.1 MG/DL Physical Exam General General Appearance: Well Developed, Well Nourished, No Acute Distress, Comfortable Eyes Eye Exam: Pupils Equal, Pupils Reactive Ears & Nose Ears & Nose Exam: Nasal Mucosa [place] Throat Throat Exam: Oral Mucosa [place] & Moist Neck Neck Exam: Neck Supple, Trachea Midline Pulmonary Resp Exam: No Distress Cardiology CV Exam: Regular, Good Perfusion Gastrointestinal/Abdomen GI Exam: Bowel Sounds Present, Distended GI Remarks abd. distended, tender to palpation RLQ mid upper incision packed, sanguineous drainage noted Musculoskeletal MS Exam: Joints Intact Integumentary Skin Exam: Warm, Dry Extremeties Extremities Exam: No Edema, Pedal Pulses Palpable Neurologic Neuro Exam: Alert, Awake, Oriented, Speech Clear, Moving All Extremities, No Focal Deficits Psychiatric Psych Exam: Appropriate Responses VTE Prophylaxis VTE Prophylaxis Meds: Heparin Assessment/Plan Problem List: (1) Sepsis (2) Pancreatitis (3) Portal vein thrombosis (4) Postoperative fever (5) Diabetes 1.5, managed as type 2 (6) HTN (hypertension) (7) GERD (gastroesophageal reflux disease) (8) Hypokalemia (9) s/p ERCP and stent placement and lap cady l Assessment/Plan S/P ERCP and stent placement and lap cady, presented with fever and abd. tenderness Surgery following, input appreciated incision upper top tender, -surgery changed dressing, opened site, expressed some purulent drainage. Now packed with moist dressing. sepsis, still febrile, no evidence of infection, some fluid around GB fossa ( expected findings after surgery) poss due to thrombus ID following continue abx remains febrile, although not as frequent max fever 101 if >100.5 will repeat BC x 1 set so far cultures from 09/10 negative elevated lipase, no pancreatitis lipase now normal portal vein thrombosis, on Eliquis hematology following work up in progress Hypertension, controlled now with patient's medicines monitor closely GERD, PPI medical management Diabetes mellitus type 2, blood glucose elevated Accu-Cheks before meals and at bedtime with sliding scale no bm yet, repeat Lactulose Replace K OOB to ambulate IS q 2 Labs in am D/W RN D/W Dr. Morrison D/W pt This patient was seen by myself and Dr. Morrison, this note is written on his behalf. Problem Qualifiers (1) Sepsis: Qualified Code: A41.9 - Sepsis, due to unspecified organism (2) Pancreatitis: Qualified Code: K85.90 - Acute pancreatitis, unspecified complication status, unspecified pancreatitis type (3) HTN (hypertension): Qualified Code: I10 - Essential hypertension (4) GERD (gastroesophageal reflux disease): Qualified Code: K21.9 - Gastroesophageal reflux disease, esophagitis presence not specified Karen Greenberg September 14, 2016 11:19
[2016-09-14] MEDS: PANTOPRAZOLE SODIUM 40 MG VIAL IV PUSH SCH (11:27)
[2016-09-14] MEDS ORDERED: POTASSIUM CHLORIDE 25 MEQ EFFERVESCENT TAB PO ONE (11:30)
[2016-09-14 12:00] VITALS: BP 155/89; PULSE 85; RESP 18; TEMP 98.9; O2SAT 98
[2016-09-14] MEDS: SODIUM CHLOR 0.9% 1000 ML INJ 1,000 ML IV SCH (12:51)
[2016-09-14 16:00] VITALS: BP 136/81; PULSE 88; RESP 19; TEMP 99; O2SAT 95
--- NOTE | 2016-09-14 18:39 | HHI.PR ---
Subjective Subjective Notes DAILY PROGRESS NOTE FOR SURGICAL ATTENDING, DR. SAWRAT JACKSON Objective Vitals/I&O Vital Signs Date Time Temp Pulse Resp B/P Pulse Ox O2 Delivery O2 Flow Rate FiO2 09/14/16 16:00 99.0 88 19 136/81 95 09/12/16 12:24 21 09/10/16 07:53 Room Air Labs Laboratory Tests Test 09/14/16 08:09 White Blood Count 7.4 Red Blood Count 3.40 Hemoglobin 8.9 Hematocrit 28.2 Mean Corpuscular Volume 82.9 Mean Corpuscular Hemoglobin 26.4 Mean Corpuscular Hemoglobin 31.8 Concent Red Cell Distribution Width 14.7 Platelet Count 314 Mean Platelet Volume 8.9 Sodium Level 134 Potassium Level 3.1 Chloride Level 95 Carbon Dioxide Level 29.8 Anion Gap 9 Blood Urea Nitrogen 5 Creatinine 0.94 Estimat Glomerular Filtration 83 Rate Random Glucose 277 Calcium Level 8.1 Date/Time Procedure Status Source Growth 09/11/16 18:19 Aerobic Blood Culture - Preliminary Resulted Blood Peripheral NO GROWTH IN 3 DAYS 09/11/16 18:19 Anaerobic Blood Culture - Preliminary Resulted Blood Peripheral NO GROWTH IN 3 DAYS 09/11/16 13:00 Stool Occult Blood (MOY) - Final Complete Stool Stool HEMOCCULT NEGATIVE 09/10/16 05:00 Gram Stain - Final Complete Wound Abdomen 09/10/16 05:00 Wound Culture - Final Complete Wound Abdomen NO GROWTH IN 72 HRS.--AEROBICALLY OR ... Radiology Last Impressions Chest X-Ray 09/10/16517 Signed Impressions: Service Date/Time: Saturday, September 10, 2016 05:32 - CONCLUSION: 1. No acute cardiopulmonary disease. 2. Hiatal hernia. Shane Kennedy Jr., MD Abdomen/Pelvis CT 09/10/16517 Signed Impressions: Service Date/Time: Saturday, September 10, 2016 06:17 - CONCLUSION: 1. There is a 5.7 x 2.5 cm collection involving the gallbladder fossa. This is a mixture of air and fluid but predominantly air. 2. Mild intrahepatic ductal dilatation involving the left lobe of the liver. 3. Left-sided hydrocele partially seen. 4. Small volume ascites. 5. Small bilateral pleural effusions. Shane Kennedy Jr., MD Cholangiopancreatography MRI 09/10/16 0000 Signed Impressions: Service Date/Time: Saturday, September 10, 2016 13:15 - CONCLUSION: 1. Left portal vein thrombosis. 2. Intrahepatic and extrahepatic biliary ducts within normal limits in diameter. 3. Gas and fluid again seen in the gallbladder fossa. Status post cholecystectomy. Ryan Kim MD Cardiovascular: Regular Lungs: Clear Abdomen: Other, Post-op tenderness Wound Wound : Wound Location: Abdomen Appearance: Clean & Dry Dressing: Dry (dressing midline port site changed by nursing staff) A/P Assessment and Plan 55-year-old gentleman status post lap scope and cholecystectomy Continues to slowly improve Attending Statement NOTE FOR SURGICAL ATTENDING, DR. SARWAT JACKSON I attest that I had a [id number] encounter with the patient on the same day, and personally performed and documented my assessment and findings in the medical record. The following services were provided during this hospital visit: Chart data review, vital sign assessments/reviewing monitor data Review of consultations notes if present. Medication orders/review and/or management Ordering and/or reviewing lab tests Ordering and/or interpreting/reviewing x-rays and/or diagnostic studies Care of the patient and discussion of the patient with the care team Documentation time To help prompt me to consider important information that might be impacting today's encounter and assessment, information from prior notes written by myself or my colleagues may have been "brought forward/copy and pasted" into today's note. Sarwat Jackson MD September 14, 2016 18:39
[2016-09-14 20:52] VITALS: BP 149/88; PULSE 87; RESP 16; TEMP 99.7; O2SAT 96
[2016-09-15 00:45] VITALS: BP 132/78; PULSE 89; RESP 18; TEMP 99.9; O2SAT 99
[2016-09-15] MEDS: LOW DOSE INSULIN NOVOLOG SUPPLEMENTAL SCALE SQ SCH ×5 (01:48→22:17)
[2016-09-15] MEDS: HYDROmorphone HCL PF 1 MG/ML VIAL IV PRN (01:50)
[2016-09-15] MEDS: SODIUM CHLOR 0.9% 1000 ML INJ 1,000 ML IV SCH ×2 (01:51→08:50)
[2016-09-15] MEDS: PIPERACIL-TAZO 3.375 GM PREMIX 50 ML IV SCH ×4 (01:51→22:20)
[2016-09-15] MEDS: oxyCODONE/ACETAMINOPHEN 10 MG/325 MG TAB PO PRN (03:08)
[2016-09-15 05:33] VITALS: BP 133/75; PULSE 81; RESP 16; TEMP 99.6; O2SAT 93
[2016-09-15 08:00] VITALS: BP 142/87; PULSE 93; RESP 18; TEMP 100; O2SAT 95
[2016-09-15] MEDS: SODIUM CHLORIDE 0.9% FLUSH 10 ML FLUSH IV FLUSH SCH ×2 (08:51→22:20)
[2016-09-15] MEDS: APIXABAN 5 MG TABLET PO SCH ×2 (08:52→22:20)
--- NOTE | 2016-09-15 10:53 | HHI.PR ---
Subjective Subjective Remarks less episodes of fever, max 100 right lower quad pain almost gone feels better today, less chills no bm yet, has scant loose bm no cp no sob no cough Review of Systems Constitutional Constitutional Remarks 12 point ROS completed, negative except as noted above Vitals/Results Intake & Output 09/14/16 09/14/16 09/15/16 15:00 23:00 07:00 Intake Total 2958 ml Balance 2958 ml IV Total 2958 ml # Voids 2 # Bowel Movements 0 Vital Signs Vital Signs Date Time Temp Pulse Resp B/P Pulse Ox O2 Delivery O2 Flow Rate FiO2 09/15/16 08:00 100.0 93 18 142/87 95 09/15/16 05:33 99.6 81 16 133/75 93 09/15/16 00:45 99.9 89 18 132/78 99 09/14/16 20:52 99.7 87 16 149/88 96 09/14/16 16:00 99.0 88 19 136/81 95 09/14/16 12:00 98.9 85 18 155/89 98 CBC/BMP: 09/14/16 0809 09/14/16 0809 Physical Exam General General Appearance: Well Developed, Well Nourished, No Acute Distress, Comfortable Eyes Eye Exam: Pupils Equal, Pupils Reactive Ears & Nose Ears & Nose Exam: Nasal Mucosa [place] Throat Throat Exam: Oral Mucosa [place] & Moist Neck Neck Exam: Neck Supple, Trachea Midline Pulmonary Resp Exam: No Distress Cardiology CV Exam: Regular, Good Perfusion Gastrointestinal/Abdomen GI Exam: Bowel Sounds Present, Distended GI Remarks abd. distended, tender to palpation RLQ mid upper incision packed, sanguineous drainage noted Musculoskeletal MS Exam: Joints Intact Integumentary Skin Exam: Warm, Dry Extremeties Extremities Exam: No Edema, Pedal Pulses Palpable Neurologic Neuro Exam: Alert, Awake, Oriented, Speech Clear, Moving All Extremities, No Focal Deficits Psychiatric Psych Exam: Appropriate Responses VTE Prophylaxis VTE Prophylaxis Meds: Heparin Assessment/Plan Problem List: (1) Sepsis (2) Pancreatitis (3) Portal vein thrombosis (4) Postoperative fever (5) Diabetes 1.5, managed as type 2 (6) HTN (hypertension) (7) GERD (gastroesophageal reflux disease) (8) Hypokalemia (9) s/p ERCP and stent placement and lap cady l Assessment/Plan S/P ERCP and stent placement and lap cady, presented with fever and abd. tenderness Surgery following, input appreciated incision upper top tender, -surgery changed dressing, opened site, expressed some purulent drainage. Now packed with moist dressing. stable, no erythema RLQ pain improved sepsis, still febrile, no evidence of infection, some fluid around GB fossa ( expected findings after surgery) poss due to thrombus ID following continue abx if >100.5 will repeat BC x 1 set so far cultures from 09/10 negative fevers less frequent, max 100 elevated lipase, no pancreatitis lipase now normal portal vein thrombosis, on Eliquis hematology following work up in progress Hypertension, controlled now with patient's medicines monitor closely GERD, PPI medical management Diabetes mellitus type 2, blood glucose elevated Accu-Cheks before meals and at bedtime with sliding scale constipation, passing gas Lactulose daily PRN will given Dulcolax PO x 1 OOB to ambulate IS q 2 Labs in am improving slowly D/W RN D/W Dr. Morrison D/W pt This patient was seen by myself and Dr. Morrison, this note is written on his behalf. Problem Qualifiers (1) Sepsis: Qualified Code: A41.9 - Sepsis, due to unspecified organism (2) Pancreatitis: Qualified Code: K85.90 - Acute pancreatitis, unspecified complication status, unspecified pancreatitis type (3) HTN (hypertension): Qualified Code: I10 - Essential hypertension (4) GERD (gastroesophageal reflux disease): Qualified Code: K21.9 - Gastroesophageal reflux disease, esophagitis presence not specified Karen Greenberg September 15, 2016 10:53
[2016-09-15] MEDS ORDERED: BISACODYL EC 5 MG TABEC PO ONE (11:00)
[2016-09-15 12:23] VITALS: BP 144/98; PULSE 84; RESP 16; TEMP 99.1; O2SAT 98
--- NOTE | 2016-09-15 12:52 | HHI.PR ---
Subjective Subjective Notes i feel better Objective Vitals/I&O Vital Signs Date Time Temp Pulse Resp B/P Pulse Ox O2 Delivery O2 Flow Rate FiO2 09/15/16 12:23 99.1 84 16 144/98 98 09/12/16 12:24 21 Labs Date/Time Procedure Status Source Growth 09/11/16 18:19 Aerobic Blood Culture - Preliminary Resulted Blood Peripheral NO GROWTH IN 4 DAYS 09/11/16 18:19 Anaerobic Blood Culture - Preliminary Resulted Blood Peripheral NO GROWTH IN 4 DAYS 09/11/16 13:00 Stool Occult Blood (MOY) - Final Complete Stool Stool HEMOCCULT NEGATIVE Radiology Last Impressions Chest X-Ray 09/10/16517 Signed Impressions: Service Date/Time: Saturday, September 10, 2016 05:32 - CONCLUSION: 1. No acute cardiopulmonary disease. 2. Hiatal hernia. Shane Kennedy Jr., MD Abdomen/Pelvis CT 09/10/16517 Signed Impressions: Service Date/Time: Saturday, September 10, 2016 06:17 - CONCLUSION: 1. There is a 5.7 x 2.5 cm collection involving the gallbladder fossa. This is a mixture of air and fluid but predominantly air. 2. Mild intrahepatic ductal dilatation involving the left lobe of the liver. 3. Left-sided hydrocele partially seen. 4. Small volume ascites. 5. Small bilateral pleural effusions. Shane Kennedy Jr., MD Cholangiopancreatography MRI 09/10/16 0000 Signed Impressions: Service Date/Time: Saturday, September 10, 2016 13:15 - CONCLUSION: 1. Left portal vein thrombosis. 2. Intrahepatic and extrahepatic biliary ducts within normal limits in diameter. 3. Gas and fluid again seen in the gallbladder fossa. Status post cholecystectomy. Ryan Kim MD Abdomen: Non-distended, Non-tender Narrative Exam wound clean, no cellulitis A/P Assessment and Plan 55-year-old male status post lap cholecystectomy, stable wound healing well, continue wound care agree with management pain better Carlos Mcgowan MD September 15, 2016 12:52
[2016-09-15] MEDS: PANTOPRAZOLE SODIUM 40 MG VIAL IV PUSH SCH (13:06)
[2016-09-15 16:00] VITALS: BP 155/87; PULSE 86; RESP 17; TEMP 99.8; O2SAT 98
[2016-09-15 19:30] VITALS: BP 155/83; PULSE 83; RESP 18; TEMP 98.5; O2SAT 97
[2016-09-16 01:00] VITALS: BP 138/89; PULSE 83; RESP 18; TEMP 96.7; O2SAT 96
[2016-09-16] MEDS: PIPERACIL-TAZO 3.375 GM PREMIX 50 ML IV SCH ×4 (01:43→21:04)
[2016-09-16 04:00] VITALS: BP 140/72; PULSE 81; RESP 20; TEMP 98; O2SAT 97
[2016-09-16] MEDS: SODIUM CHLOR 0.9% 1000 ML INJ 1,000 ML IV SCH ×2 (04:48→23:56)
[2016-09-16] MEDS: LOW DOSE INSULIN NOVOLOG SUPPLEMENTAL SCALE SQ SCH (06:38)
[2016-09-16 07:00] LABS: HEMATOCRIT 27.2 % (39.0-51.0); MEAN CELL VOLUME 81.1 FL (80.0-100.0); MEAN CORPUSCULAR HGB CONC 33.4 % (32.0-36.0); PLATELET COUNT 381 TH/MM3 (150-450); RED BLOOD COUNT 3.35 MIL/MM3 (4.50-5.90); RED CELL DISTRIBUTION WIDTH 14.8 % (11.6-17.2); REVIEW FLAG FINAL; WHITE BLOOD COUNT 7.6 TH/MM3 (4.0-11.0)
[2016-09-16 07:26] LABS: POTASSIUM 3.9 MEQ/L (3.5-5.1)
[2016-09-16 07:53] LABS: THROMBIN TIME FOR LA ND sec (13-19)
[2016-09-16 08:05] VITALS: BP 139/88; PULSE 82; RESP 18; TEMP 98; O2SAT 96
[2016-09-16] MEDS: ALLOPURINOL 300 MG TAB PO SCH (10:18)
[2016-09-16] MEDS: APIXABAN 5 MG TABLET PO SCH ×2 (10:18→21:04)
[2016-09-16] MEDS: PANTOPRAZOLE SODIUM 40 MG VIAL IV PUSH SCH (10:18)
[2016-09-16] MEDS: INSULIN ASPART SUPPLEMENTAL SCALE SQ SCH ×3 (11:00→21:56)
--- NOTE | 2016-09-16 11:21 | HHI.PR ---
Subjective Subjective Remarks Resting in bed Alert cooperative Abdominal pain right upper quadrant resolved, no pain today BM daily Abdominal dressing clean dry and intact Afebrile last 24 hours (Priscilla Mullen) Review of Systems Constitutional Constitutional: Weakness (generalized improved) Constitutional Remarks 10 point ROS done positives noted other systems negative or unremarkable ( Priscilla Mullen) GI/Abdomen GI/Abdomen Remarks Daily BMs, mid abdominal dressing, clean dry and intact, no edema (Priscilla Mullen) Musculoskeletal MS: Weakness (generalized but improving with some activity) (Priscilla Mullen) Integumentary Skin: Wounds (abdominal healing, incision and dressing mid abdomen) (Priscilla Mullen) Psychiatric Psychiatric: Normal Mood (Priscilla Mullen) Vitals/Results Intake & Output 09/15/16 09/15/16 09/16/16 15:00 23:00 07:00 # Voids 2 # Bowel Movements 1 Vital Signs Vital Signs Date Time Temp Pulse Resp B/P Pulse Ox O2 Delivery O2 Flow Rate FiO2 09/16/16 08:05 98.0 82 18 139/88 96 09/16/16 04:00 98.0 81 20 140/72 97 09/16/16 01:00 96.7 83 18 138/89 96 09/15/16 19:30 98.5 83 18 155/83 97 09/15/16 16:00 99.8 86 17 155/87 98 09/15/16 12:23 99.1 84 16 144/98 98 (Priscilla Mullen) CBC/BMP: 09/16/16 0614 09/16/16 0614 Lab Results Laboratory Tests Test 09/16/16 06:14 White Blood Count 7.6 TH/MM3 Red Blood Count 3.35 MIL/MM3 Hemoglobin 9.1 GM/DL Hematocrit 27.2 % Mean Corpuscular Volume 81.1 FL Mean Corpuscular Hemoglobin 27.0 PG Mean Corpuscular Hemoglobin 33.4 % Concent Red Cell Distribution Width 14.8 % Platelet Count 381 TH/MM3 Mean Platelet Volume 8.4 FL Sodium Level 133 MEQ/L Potassium Level 3.9 MEQ/L Chloride Level 96 MEQ/L Carbon Dioxide Level 29.0 MEQ/L Anion Gap 8 MEQ/L Blood Urea Nitrogen 4 MG/DL Creatinine 0.93 MG/DL Estimat Glomerular Filtration 84 ML/MIN Rate Random Glucose 312 MG/DL Calcium Level 8.7 MG/DL Current Medications Administered Medications Medications (Trade) Dose Ordered Sig/Cezar Route PRN Reason Start Time Stop Time Status Last Admin Dose Admin Sodium Chloride (NS 1000 ml Inj) 1,000 ml @ 50 mls/hr Q20H IV 09/10/16 06:48 09/16/16 04:48 Sodium Chloride (NS Flush) 2 ml BID IV FLUSH 09/10/16 09:00 09/15/16 22:20 Pantoprazole Sodium (Protonix Inj) 40 mg Q24H IV PUSH 09/10/16 10:15 09/16/16 10:18 Hydromorphone HCl (Dilaudid Pf Inj) 0.5 mg Q4H PRN IV PAIN SCALE 6 TO 10 09/10/16 13:15 09/15/16 01:50 Oxycodone/ Acetaminophen 1 tab 1 tab Q4H PRN PO BREAKTHROUGH PAIN 09/11/16 15:15 09/15/16 03:08 Piperacillin Sod/ Tazobactam Sod (Zosyn 3.375 Gm Premix) 50 ml @ 100 mls/hr Q6H IV 09/11/16 20:00 09/16/16 10:18 Apixaban (Eliquis) 10 mg BID PO 09/12/16 21:00 09/19/16 09:01 09/16/16 10:18 Lactulose (Lactulose Liq) 30 ml DAILY PRN PO constipation 09/14/16 09:00 09/14/16 13:55 Allopurinol (Zyloprim) 300 mg DAILY PO 09/16/16 09:00 09/16/16 10:18 (Priscilla Mullen) Physical Exam General General Appearance: Well Developed, Well Nourished, No Acute Distress, Comfortable (Priscilla Mullen) Eyes Eye Exam: Pupils Equal, Pupils Reactive (Priscilla Mullen) Ears & Nose Ears & Nose Exam: Nasal Mucosa [place] (Priscilla Mullen) Throat Throat Exam: Oral Mucosa [place] & Moist ([place]ebas,Priscilla M. PRODUCT SAFETY ADMINISTRATOR) Neck Neck Exam: Neck Supple, Trachea Midline ([place]. PRODUCT SAFETY ADMINISTRATOR) Pulmonary Resp Exam: Clear Bilaterally, No Distress (Priscilla Mullen. PRODUCT SAFETY ADMINISTRATOR) Cardiology CV Exam: Regular, Good Perfusion (Priscilla Mullen. PRODUCT SAFETY ADMINISTRATOR) Gastrointestinal/Abdomen GI Exam: Non-Tender, Bowel Sounds Present, Distended (nondistended) GI Remarks Healing abdominal wounds, mid incision with dressing clean dry and intact ( Priscilla Mullen. PRODUCT SAFETY ADMINISTRATOR) Musculoskeletal MS Exam: Joints Intact ([place]. PRODUCT SAFETY ADMINISTRATOR) Integumentary Skin Exam: Warm, Dry ([place]illa ye. PRODUCT SAFETY ADMINISTRATOR) Extremeties Extremities Exam: No Edema, Pedal Pulses Palpable ([place],Susan M. PRODUCT SAFETY ADMINISTRATOR) Neurologic Neuro Exam: Alert, Awake, Oriented, Speech Clear, Moving All Extremities, No Focal Deficits (Priscilla Mullen M. PRODUCT SAFETY ADMINISTRATOR) Psychiatric Psych Exam: Appropriate Responses (Priscilla Mullen. PRODUCT SAFETY ADMINISTRATOR) VTE Prophylaxis VTE Prophylaxis Meds: Heparin (Priscilla Mullen. PRODUCT SAFETY ADMINISTRATOR) Assessment/Plan Problem List: (1) Sepsis (2) Pancreatitis (3) Portal vein thrombosis (4) Postoperative fever (5) Diabetes 1.5, managed as type 2 (6) HTN (hypertension) (7) GERD (gastroesophageal reflux disease) (8) Hypokalemia (9) s/p ERCP and stent placement and lap cady l Assessment/Plan Vital signs reviewed currently afebrile for the last 24 hours other systems normal Labs reviewed Taking by mouth fluids well, DC IV fluids S/P ERCP and stent placement and recent lap cady, presented with fever and abd. tenderness Surgery following, input appreciated stable, no erythema RLQ pain resolved sepsis, abdominal incision infection ID following, dressing midabdomen clean dry and intact. When care support appreciated continue abx Cultures negative portal vein thrombosis, on Eliquis hematology following , plan for 3 months of therapy Hypertension, controlled now with patient's medicines monitor closely GERD, PPI medical management Diabetes mellitus type 2, blood glucose elevated continues Accu-Cheks before meals and at bedtime sliding scale, increased sliding scale amount constipation, resolved BMs daily now Discharge planning soon, will follow surgical input D/W RN D/W Dr. 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 of care dw conduit reamer operator dw pt dw rn ray consultants help, dw surgeon hopefully dc home tomorrow (Roseann Morrison MD) Problem Qualifiers (1) Sepsis: Qualified Code: A41.9 - Sepsis, due to unspecified organism (2) Pancreatitis: Qualified Code: K85.90 - Acute pancreatitis, unspecified complication status, unspecified pancreatitis type (3) HTN (hypertension): Qualified Code: I10 - Essential hypertension (4) GERD (gastroesophageal reflux disease): Qualified Code: K21.9 - Gastroesophageal reflux disease, esophagitis presence not specified Priscilla Mullen September 16, 2016 11:21 Roseann Morrison MD September 16, 2016 13:07
[2016-09-16 11:35] VITALS: BP 135/84; PULSE 90; RESP 18; TEMP 99.2; O2SAT 97
[2016-09-16] MEDS: oxyCODONE/ACETAMINOPHEN 10 MG/325 MG TAB PO PRN ×3 (12:35→21:21)
--- NOTE | 2016-09-16 14:11 | HHI.PR ---
Subjective Subjective Notes Abdomen pain much better but now with gout. Reports no fevers and eating and drinking better now Objective Vitals/I&O Vital Signs Date Time Temp Pulse Resp B/P Pulse Ox O2 Delivery O2 Flow Rate FiO2 09/16/16 11:35 99.2 90 18 135/84 97 09/12/16 12:24 21 Labs Laboratory Tests Test 09/16/16 06:14 White Blood Count 7.6 Red Blood Count 3.35 Hemoglobin 9.1 Hematocrit 27.2 Mean Corpuscular Volume 81.1 Mean Corpuscular Hemoglobin 27.0 Mean Corpuscular Hemoglobin 33.4 Concent Red Cell Distribution Width 14.8 Platelet Count 381 Mean Platelet Volume 8.4 Sodium Level 133 Potassium Level 3.9 Chloride Level 96 Carbon Dioxide Level 29.0 Anion Gap 8 Blood Urea Nitrogen 4 Creatinine 0.93 Estimat Glomerular Filtration 84 Rate Random Glucose 312 Calcium Level 8.7 Date/Time Procedure Status Source Growth 09/11/16 18:19 Aerobic Blood Culture - Final Complete Blood Peripheral NO GROWTH IN 5 DAYS 09/11/16 18:19 Anaerobic Blood Culture - Final Complete Blood Peripheral NO GROWTH IN 5 DAYS Radiology Last Impressions Chest X-Ray 09/10/16517 Signed Impressions: Service Date/Time: Saturday, September 10, 2016 05:32 - CONCLUSION: 1. No acute cardiopulmonary disease. 2. Hiatal hernia. Shane Kennedy Jr., MD Abdomen/Pelvis CT 09/10/16517 Signed Impressions: Service Date/Time: Saturday, September 10, 2016 06:17 - CONCLUSION: 1. There is a 5.7 x 2.5 cm collection involving the gallbladder fossa. This is a mixture of air and fluid but predominantly air. 2. Mild intrahepatic ductal dilatation involving the left lobe of the liver. 3. Left-sided hydrocele partially seen. 4. Small volume ascites. 5. Small bilateral pleural effusions. Shane Kennedy Jr., MD Cholangiopancreatography MRI 09/10/16 0000 Signed Impressions: Service Date/Time: Saturday, September 10, 2016 13:15 - CONCLUSION: 1. Left portal vein thrombosis. 2. Intrahepatic and extrahepatic biliary ducts within normal limits in diameter. 3. Gas and fluid again seen in the gallbladder fossa. Status post cholecystectomy. Ryan Kim MD Cardiovascular: Regular Lungs: Clear Abdomen: Other (RUQ lap site----too superficial to pack; redness decreased; other lap sites c/d/i ) Extremities: No edema A/P Assessment and Plan 55 year old male s/p ERCP and stent placement and lap cady last week; back with increased abdominal pain and fever at home -MRCP showed LEFT protal vein thrombosis -Hematology consult---Started on Eliquis -Afebrile -Dry dressing to RUQ lap site -Okay to shower between dressing changes -Diet as tolerated Attending Statement patient seen at bedside abd pain better no food pain Attestation The exam, history, and the medical decision-making described in the above note were completed with the assistance of the mid-level provider. I reviewed and agree with the findings presented. I attest that I had a [id number] encounter with the patient on the same day, and personally performed and documented my assessment and findings in the medical record. Kizzy Moody September 16, 2016 14:11 Jacky Pierson MD September 29, 2016 15:18
[2016-09-16 15:10] VITALS: BP 138/88; PULSE 90; RESP 18; TEMP 98.4; O2SAT 96
[2016-09-16] MEDS: metFORMIN HCL 500 MG TAB PO SCH (18:06)
[2016-09-16 20:00] VITALS: BP_SYST 172; BP_SYST 181; BP_DIAS 91; BP_DIAS 95; PULSE 86; RESP 20; TEMP 98.4; O2SAT 99
[2016-09-16] MEDS ORDERED: cloNIDine HCL 0.1 MG TAB PO PRN (21:00)
[2016-09-16] MEDS: SODIUM CHLORIDE 0.9% FLUSH 10 ML FLUSH IV FLUSH SCH ×2 (21:00→21:05)
[2016-09-16] MEDS: amLODIPine BESYLATE 5 MG TAB PO SCH (21:04)
[2016-09-17] VITALS: BP 159/90; PULSE 90; RESP 20; TEMP 99.7; O2SAT 97
[2016-09-17] MEDS: PIPERACIL-TAZO 3.375 GM PREMIX 50 ML IV SCH ×2 (02:13→09:05)
[2016-09-17] MEDS: oxyCODONE/ACETAMINOPHEN 10 MG/325 MG TAB PO PRN ×5 (02:13→19:38)
[2016-09-17 04:00] VITALS: BP 126/78; PULSE 85; RESP 20; TEMP 98.9; O2SAT 95
[2016-09-17] MEDS: INSULIN ASPART SUPPLEMENTAL SCALE SQ SCH ×4 (06:28→21:00)
[2016-09-17 07:40] LABS: HEMATOCRIT 27.1 % (39.0-51.0); MEAN CELL VOLUME 81.1 FL (80.0-100.0); MEAN CORPUSCULAR HEMOGLOBIN 26.3 PG (27.0-34.0); MEAN CORPUSCULAR HGB CONC 32.5 % (32.0-36.0); PLATELET COUNT 386 TH/MM3 (150-450); RED BLOOD COUNT 3.34 MIL/MM3 (4.50-5.90); RED CELL DISTRIBUTION WIDTH 14.9 % (11.6-17.2); REVIEW FLAG FINAL; WHITE BLOOD COUNT 7.8 TH/MM3 (4.0-11.0)
[2016-09-17 08:00] VITALS: BP 134/90; PULSE 92; RESP 16; TEMP 99.5; O2SAT 97
[2016-09-17] MEDS: ALLOPURINOL 300 MG TAB PO SCH (09:05)
[2016-09-17] MEDS: metFORMIN HCL 500 MG TAB PO SCH ×2 (09:05→17:49)
[2016-09-17] MEDS: amLODIPine BESYLATE 5 MG TAB PO SCH (09:06)
[2016-09-17] MEDS: APIXABAN 5 MG TABLET PO SCH ×2 (09:06→21:00)
[2016-09-17] MEDS: PANTOPRAZOLE SODIUM 40 MG VIAL IV PUSH SCH (09:06)
[2016-09-17] MEDS ORDERED: INSULIN HUMAN REGULAR 1,000 UNITS/10 ML VIAL SQ ONE (09:45)
--- NOTE | 2016-09-17 09:50 | HHI.PR ---
Subjective Subjective Remarks Resting in bed, rt. christa pain, (gout), can't ambulate due to pain Alert cooperative Abdominal pain resolved, mild soreness Abdominal dressing clean dry and intact, wound healing, DM, blood 200> (Priscilla Mullen) Review of Systems Constitutional Constitutional: Weakness (generalized improved) Constitutional Remarks 10 point ROS done positives noted other systems negative or unremarkable ( Priscilla Mullen) GI/Abdomen GI/Abdomen Remarks Daily BMs, mid abdominal dressing, clean dry and intact, no edema (Priscilla Mullen) Musculoskeletal MS: Weakness (generalized but improving with some activity) (Priscilla Mullen) Integumentary Skin: Wounds (abdominal healing, incision and dressing mid abdomen) (Priscilla Mullen) Psychiatric Psychiatric: Normal Mood (Priscilla Mullen) Endocrine Endocrine Remarks gout (Priscilla Mullen) Vitals/Results Intake & Output 09/16/16 09/16/16 09/17/16 14:59 22:59 06:59 Intake Total 720 ml Balance 720 ml Intake Oral 720 ml # Voids 6 1 # Bowel Movements 0 0 Vital Signs Vital Signs Date Time Temp Pulse Resp B/P Pulse Ox O2 Delivery O2 Flow Rate FiO2 09/17/16 08:00 99.5 92 16 134/90 97 09/17/16 04:00 98.9 85 20 126/78 95 09/17/16 00:00 99.7 90 20 159/90 97 09/16/16 20:00 98.4 86 20 172/91 99 181/95 09/16/16 15:10 98.4 90 18 138/88 96 09/16/16 11:35 99.2 90 18 135/84 97 (Priscilla Mullen) CBC/BMP: 09/17/16 0700 09/16/16 0614 Lab Results Laboratory Tests Test 09/17/16 07:00 White Blood Count 7.8 TH/MM3 Red Blood Count 3.34 MIL/MM3 Hemoglobin 8.8 GM/DL Hematocrit 27.1 % Mean Corpuscular Volume 81.1 FL Mean Corpuscular Hemoglobin 26.3 PG Mean Corpuscular Hemoglobin 32.5 % Concent Red Cell Distribution Width 14.9 % Platelet Count 386 TH/MM3 Mean Platelet Volume 8.3 FL Current Medications Administered Medications Medications (Trade) Dose Ordered Sig/Cezar Route PRN Reason Start Time Stop Time Status Last Admin Dose Admin Sodium Chloride (NS 1000 ml Inj) 1,000 ml @ 50 mls/hr Q20H IV 09/10/16 06:48 09/16/16 23:56 Sodium Chloride (NS Flush) 2 ml BID IV FLUSH 09/10/16 09:00 09/16/16 21:00 Pantoprazole Sodium (Protonix Inj) 40 mg Q24H IV PUSH 09/10/16 10:15 09/17/16 09:06 Hydromorphone HCl (Dilaudid Pf Inj) 0.5 mg Q4H PRN IV PAIN SCALE 6 TO 10 09/10/16 13:15 09/15/16 01:50 Oxycodone/ Acetaminophen 1 tab 1 tab Q4H PRN PO BREAKTHROUGH PAIN 09/11/16 15:15 09/17/16 06:26 Piperacillin Sod/ Tazobactam Sod (Zosyn 3.375 Gm Premix) 50 ml @ 100 mls/hr Q6H IV 09/11/16 20:00 09/17/16 09:05 Apixaban (Eliquis) 10 mg BID PO 09/12/16 21:00 09/19/16 09:01 09/17/16 09:06 Lactulose (Lactulose Liq) 30 ml DAILY PRN PO constipation 09/14/16 09:00 09/14/16 13:55 Allopurinol (Zyloprim) 300 mg DAILY PO 09/16/16 09:00 09/17/16 09:05 Metformin HCl (Glucophage) 500 mg BIDPC PO 09/16/16 18:00 09/17/16 09:05 Amlodipine Besylate (Norvasc) 5 mg DAILY PO 09/16/16 21:00 09/17/16 09:06 (Priscilla Mullen) Physical Exam General General Appearance: Well Developed, Well Nourished, No Acute Distress, Comfortable (Priscilla Mullen) Eyes Eye Exam: Pupils Equal, Pupils Reactive (Priscilla Mullen) Ears & Nose Ears & Nose Exam: Nasal Mucosa [place] (SebasPriscilla M. PLANT PATHOLOGIST) Throat Throat Exam: Oral Mucosa [place] & Moist ([place] M. PLANT PATHOLOGIST) Neck Neck Exam: Neck Supple, Trachea Midline ([place]iscilla M. PLANT PATHOLOGIST) Pulmonary Resp Exam: Clear Bilaterally, No Distress ([place],Priscilla M. PLANT PATHOLOGIST) Cardiology CV Exam: Regular, Good Perfusion ([place]iscilla M. PLANT PATHOLOGIST) Gastrointestinal/Abdomen GI Exam: Non-Tender, Bowel Sounds Present, Distended (nondistended) GI Remarks Healing abdominal wounds, mid incision with dressing clean dry and intact ( [place]iscilla M. PLANT PATHOLOGIST) Musculoskeletal MS Exam: Joints Intact MS Remarks gout, rt. ankle ([place],Priscilla M. PLANT PATHOLOGIST) Integumentary Skin Exam: Warm, Dry ([place],Priscilla M. PLANT PATHOLOGIST) Extremeties Extremities Exam: No Edema, Pedal Pulses Palpable ([place]iscilla M. PLANT PATHOLOGIST) Neurologic Neuro Exam: Alert, Awake, Oriented, Speech Clear, Moving All Extremities, No Focal Deficits ([place]iscilla M. PLANT PATHOLOGIST) Psychiatric Psych Exam: Appropriate Responses ([place]iscilla M. PLANT PATHOLOGIST) VTE Prophylaxis VTE Prophylaxis Meds: Heparin ([place]Priscilla M. PLANT PATHOLOGIST) Assessment/Plan Problem List: (1) Sepsis (2) Pancreatitis (3) Portal vein thrombosis (4) Postoperative fever (5) Diabetes 1.5, managed as type 2 (6) HTN (hypertension) (7) GERD (gastroesophageal reflux disease) (8) Hypokalemia (9) s/p ERCP and stent placement and lap cady l Assessment/Plan Vital signs , low grade fever, 99.5 Labs reviewed, BS 202 accucheck this am. Restarted Metformin yesterday. Extra 3 units regular this am. Recheck at 1100 S/P ERCP and stent placement and recent lap cady, presented with fever and abd. tenderness Surgery following, input appreciated stable, no erythema RLQ pain better, mild soreness at umbilicus wound. dressing clean, checked per surgeon today sepsis, abdominal incision infection, improving, ID following, dressing midabdomen clean dry and intact. When care support appreciated continue abx Cultures negative Rt. ankle gout, still very painful, patient unable to weight much if any. elevated in bed. Mild redness to ankle review medical management portal vein thrombosis, on Eliquis hematology following , plan for 3 months of therapy Hypertension, controlled now with patient's medicines monitor closely GERD, PPI medical management Diabetes mellitus type 2, uncontrolled Accu-Cheks before meals and at bedtime sliding scale, increased sliding scale to moderate bowel regimen. Miralax daily Discharge planning soon, will follow surgical input D/W RN D/W Dr. Morrison, seen on his behalf D/W patient (Priscilla Mullen) Assessment/Plan Patient seen and examined as above Labs and medications reviewed Previous notes reviewed [place] appreciate consultants help Patient has severe gout with a start IV steroid one dose and also colchicine. Discussed with pharmacy. Monitor him in house tonight. Discussed with infectious disease DrArtemio off of antibiotic will watch him tonight. Plan of care discussed with PLANT PATHOLOGIST Discussed with patient (Roseann Morrison MD) Problem Qualifiers (1) Sepsis: Qualified Code: A41.9 - Sepsis, due to unspecified organism (2) Pancreatitis: Qualified Code: K85.90 - Acute pancreatitis, unspecified complication status, unspecified pancreatitis type (3) HTN (hypertension): Qualified Code: I10 - Essential hypertension (4) GERD (gastroesophageal reflux disease): Qualified Code: K21.9 - Gastroesophageal reflux disease, esophagitis presence not specified Priscilla Mullen September 17, 2016 09:49 Roseann Morrison MD September 17, 2016 16:42
[2016-09-17] MEDS ORDERED: DEXTROSE 50% IN WATER 50 ML VIAL(D50) IV PRN (10:45)
--- NOTE | 2016-09-17 10:54 | HHI.PR ---
Subjective Subjective Notes Reports abdominal pain much improved C/o gout in foot---painful to walk Objective Vitals/I&O Vital Signs Date Time Temp Pulse Resp B/P Pulse Ox O2 Delivery O2 Flow Rate FiO2 09/17/16 08:00 99.5 92 16 134/90 97 Labs Laboratory Tests Test 09/17/16 07:00 White Blood Count 7.8 Red Blood Count 3.34 Hemoglobin 8.8 Hematocrit 27.1 Mean Corpuscular Volume 81.1 Mean Corpuscular Hemoglobin 26.3 Mean Corpuscular Hemoglobin 32.5 Concent Red Cell Distribution Width 14.9 Platelet Count 386 Mean Platelet Volume 8.3 Radiology Last Impressions Chest X-Ray 09/10/16517 Signed Impressions: Service Date/Time: Saturday, September 10, 2016 05:32 - CONCLUSION: 1. No acute cardiopulmonary disease. 2. Hiatal hernia. Shane Kennedy Jr., MD Abdomen/Pelvis CT 09/10/16517 Signed Impressions: Service Date/Time: Saturday, September 10, 2016 06:17 - CONCLUSION: 1. There is a 5.7 x 2.5 cm collection involving the gallbladder fossa. This is a mixture of air and fluid but predominantly air. 2. Mild intrahepatic ductal dilatation involving the left lobe of the liver. 3. Left-sided hydrocele partially seen. 4. Small volume ascites. 5. Small bilateral pleural effusions. Shane Kennedy Jr., MD Cholangiopancreatography MRI 09/10/16 0000 Signed Impressions: Service Date/Time: Saturday, September 10, 2016 13:15 - CONCLUSION: 1. Left portal vein thrombosis. 2. Intrahepatic and extrahepatic biliary ducts within normal limits in diameter. 3. Gas and fluid again seen in the gallbladder fossa. Status post cholecystectomy. Ryan Kim MD Cardiovascular: Regular Lungs: Clear Abdomen: Non-distended, Other (RUQ lap sites with small amout of drainage; draianing; other lap sites c/d/i ) Extremities: No edema A/P Assessment and Plan 55 year old male s/p ERCP and stent placement and lap cady last week; back with increased abdominal pain and fever at home -MRCP showed LEFT protal vein thrombosis -Hematology consult---Started on Eliquis -Afebrile -Iodorform packing to open lap site; change BID and PRN -Okay to shower between dressing changes -Diet as tolerated -DC planning Attending Statement patient seen at bedside abd pain resolved now gout flare up- continue med tx Kizzy Moody September 17, 2016 10:54 Jacky Pierson MD September 29, 2016 15:24
[2016-09-17] MEDS ORDERED: methylPREDNISolone SOD SUCC 40 MG/1 ML VIAL IV PUSH ONE (11:30)
[2016-09-17 12:00] VITALS: BP 131/85; PULSE 88; RESP 19; TEMP 99.5; O2SAT 97
--- NOTE | 2016-09-17 14:02 | HHI.IDPN ---
Subjective Subjective Remarks 55 year old male admitted with RUQ and epigastric pain, S/P recent lap cady and ERCP Notes reviewed Temps better Pain in RUQ better Started having R ankle pain and swelling yesterday - on RX for gout started arthur , got dose of steroids, and to be started on cochicine Has had gout before, last acute attack awhile back,, on allopurinol All C/S negative BC negative LFT better Lipase normal now Antibiotics Zosyn Lines PIV Past Medical History Hypertension Diabetes mellitus type 2 GERD Recent cholecystitis with gallstones and distended CBD Past Surgical History Appendectomy Hernia repair times three. Recent laparoscopic cholecystectomy and ERCP. Allergies: Coded Allergies: No Known Allergies (Unverified , 09/10/16) Objective . Vital Signs Date Time Temp Pulse Resp B/P Pulse Ox O2 Delivery O2 Flow Rate FiO2 09/17/16 12:00 99.5 88 19 131/85 97 09/17/16 08:00 99.5 92 16 134/90 97 09/17/16 04:00 98.9 85 20 126/78 95 09/17/16 00:00 99.7 90 20 159/90 97 09/16/16 20:00 98.4 86 20 172/91 99 181/95 09/16/16 15:10 98.4 90 18 138/88 96 09/16/16 09/16/16 09/17/16 15:00 23:00 07:00 Intake Total 720 ml Balance 720 ml Intake Oral 720 ml # Voids 6 1 # Bowel Movements 0 0 . Laboratory Tests Test 09/16/16 09/17/16 06:14 07:00 White Blood Count 7.6 TH/MM3 7.8 TH/MM3 Red Blood Count 3.35 MIL/MM3 3.34 MIL/MM3 Hemoglobin 9.1 GM/DL 8.8 GM/DL Hematocrit 27.2 % 27.1 % Mean Corpuscular Volume 81.1 FL 81.1 FL Mean Corpuscular Hemoglobin 27.0 PG 26.3 PG Mean Corpuscular Hemoglobin 33.4 % 32.5 % Concent Red Cell Distribution Width 14.8 % 14.9 % Platelet Count 381 TH/MM3 386 TH/MM3 Mean Platelet Volume 8.4 FL 8.3 FL Laboratory Tests Test 09/16/16 06:14 Sodium Level 133 MEQ/L Potassium Level 3.9 MEQ/L Chloride Level 96 MEQ/L Carbon Dioxide Level 29.0 MEQ/L Anion Gap 8 MEQ/L Blood Urea Nitrogen 4 MG/DL Creatinine 0.93 MG/DL Estimat Glomerular Filtration 84 ML/MIN Rate Random Glucose 312 MG/DL Calcium Level 8.7 MG/DL Imaging Last Impressions Chest X-Ray 09/10/16517 Signed Impressions: Service Date/Time: Saturday, September 10, 2016 05:32 - CONCLUSION: 1. No acute cardiopulmonary disease. 2. Hiatal hernia. Shane Kennedy Jr., MD Abdomen/Pelvis CT 09/10/16517 Signed Impressions: Service Date/Time: Saturday, September 10, 2016 06:17 - CONCLUSION: 1. There is a 5.7 x 2.5 cm collection involving the gallbladder fossa. This is a mixture of air and fluid but predominantly air. 2. Mild intrahepatic ductal dilatation involving the left lobe of the liver. 3. Left-sided hydrocele partially seen. 4. Small volume ascites. 5. Small bilateral pleural effusions. Shane Kennedy Jr., MD Cholangiopancreatography MRI 09/10/16 0000 Signed Impressions: Service Date/Time: Saturday, September 10, 2016 13:15 - CONCLUSION: 1. Left portal vein thrombosis. 2. Intrahepatic and extrahepatic biliary ducts within normal limits in diameter. 3. Gas and fluid again seen in the gallbladder fossa. Status post cholecystectomy. Ryan Kim MD Physical Exam GENERAL: awake and alert,NAD SKIN: Warm and dry. No generalized rash or ecchymosis. HEAD: Atraumatic. Normocephalic. No temporal or scalp tenderness. EYES: [place] conjunctivae, no petechia or hemorrhage. No scleral icterus. No injection or drainage. ENT: Nose without bleeding, or purulent drainage. Moist oral mucosa, no lesions noted. Throat without erythema, or exudate. . NECK: Supple, nontender, no meningeal signs. CARDIOVASCULAR: Regular rate and rhythm without murmurs, gallops, or rubs. RESPIRATORY: Clear to auscultation. Breath sounds equal bilaterally. No wheezes , rales, or rhonchi. GASTROINTESTINAL: Abdomen distended, bowel sounds are present and hypoactive, with mild on the right side, no guarding or rebound. Incisions from lap has Steri-Strips in place, with no drainage noted. The incision close to the epigastric area now with packing and has bloody discharge. MUSCULOSKELETAL: R ankle with redness and swelling on lateral aspect NEUROLOGICAL: Grossly non-focal PSYCH: Normal affect, calm and cooperative. LINE: PIV with no evidence of infection. Previous IV sites with no evidence of phlebitis. Assessment & Plan Remarks IMPRESSION Sepsis syndrome possibly related to recent surgery, though findings with air/ fluid in GB fossa not unusual due to the recent procedure - ?due to portal vein thrombosis - had some elevated lipase, now down to normal, no abnormality seen on imaging studies - CXR clear - UA ok - has a small superifical wound infection in one of incisions, dont think this is causing the fevers Fevers, better Gout R ankle Recent lap cady for acute cholecystitis RECOMMENDATION Stop Zosyn Rx gout Monitor off Abx Monitor temps Monitor progress if stable, shpuld be able to D/C from ID standpoint on no Abx D/W patient Irma Rehman MD September 17, 2016 14:02
[2016-09-17] MEDS: COLCHICINE 0.6 MG TAB PO SCH ×2 (15:25→21:00)
[2016-09-17 16:00] VITALS: BP 145/89; PULSE 88; RESP 20; TEMP 98.8; O2SAT 96
[2016-09-17 20:19] VITALS: BP 143/81; PULSE 91; RESP 17; TEMP 97.2; O2SAT 97
[2016-09-17] MEDS: SODIUM CHLOR 0.9% 1000 ML INJ 1,000 ML IV SCH (20:51)
[2016-09-17] MEDS: SODIUM CHLORIDE 0.9% FLUSH 10 ML FLUSH IV FLUSH SCH (21:00)
[2016-09-18 00:41] VITALS: BP 139/81; PULSE 93; RESP 17; TEMP 99; O2SAT 97
[2016-09-18 05:35] VITALS: BP 139/86; PULSE 82; RESP 17; TEMP 98.6; O2SAT 97
[2016-09-18] MEDS: INSULIN ASPART SUPPLEMENTAL SCALE SQ SCH ×2 (06:53→11:00)
[2016-09-18 08:00] VITALS: BP 157/88; PULSE 77; RESP 16; TEMP 96.8; O2SAT 98
[2016-09-18] MEDS: APIXABAN 5 MG TABLET PO SCH (08:24)
[2016-09-18] MEDS: amLODIPine BESYLATE 5 MG TAB PO SCH (08:24)
[2016-09-18] MEDS: COLCHICINE 0.6 MG TAB PO SCH (08:24)
[2016-09-18] MEDS: ALLOPURINOL 300 MG TAB PO SCH (08:24)
[2016-09-18] MEDS: metFORMIN HCL 500 MG TAB PO SCH (08:24)
[2016-09-18] MEDS: SODIUM CHLORIDE 0.9% FLUSH 10 ML FLUSH IV FLUSH SCH (08:24)
[2016-09-18] MEDS: PANTOPRAZOLE SODIUM 40 MG VIAL IV PUSH SCH (10:15)
--- NOTE | 2016-09-18 10:53 | HHI.PR ---
Subjective Subjective Remarks Up in chair Gout and right ankle improved patient is now weightbearing Alert cooperative Abdominal pain resolved, mild soreness Abdominal dressing clean dry and intact Afebrile Review of Systems Constitutional Constitutional: Weakness (generalized improved) Constitutional Remarks 10 point ROS done positives noted other systems negative or unremarkable GI/Abdomen GI/Abdomen Remarks Daily BMs, mid abdominal dressing, clean dry and intact, no edema Musculoskeletal MS: Weakness (generalized but improving with some activity) Integumentary Skin: Wounds (abdominal healing, incision and dressing mid abdomen) Psychiatric Psychiatric: Normal Mood Endocrine Endocrine Remarks gout, improved after steroids Vitals/Results Intake & Output 09/17/16 09/17/16 09/18/16 15:00 23:00 07:00 Intake Total 480 ml 480 ml Balance 480 ml 480 ml Intake Oral 480 ml 480 ml # Voids 4 7 # Bowel Movements 0 1 Vital Signs Vital Signs Date Time Temp Pulse Resp B/P Pulse Ox O2 Delivery O2 Flow Rate FiO2 09/18/16 08:00 96.8 77 16 157/88 98 09/18/16 05:35 98.6 82 17 139/86 97 09/18/16 00:41 99.0 93 17 139/81 97 09/17/16 20:19 97.2 91 17 143/81 97 09/17/16 16:00 98.8 88 20 145/89 96 09/17/16 12:00 99.5 88 19 131/85 97 CBC/BMP: 09/17/16 0700 09/16/16 0614 Current Medications Administered Medications Medications (Trade) Dose Ordered Sig/Cezar Route PRN Reason Start Time Stop Time Status Last Admin Dose Admin Sodium Chloride (NS 1000 ml Inj) 1,000 ml @ 50 mls/hr Q20H IV 09/10/16 06:48 09/16/16 23:56 Sodium Chloride (NS Flush) 2 ml BID IV FLUSH 09/10/16 09:00 09/18/16 08:24 Pantoprazole Sodium (Protonix Inj) 40 mg Q24H IV PUSH 09/10/16 10:15 09/17/16 09:06 Hydromorphone HCl (Dilaudid Pf Inj) 0.5 mg Q4H PRN IV PAIN SCALE 6 TO 10 09/10/16 13:15 09/15/16 01:50 Oxycodone/ Acetaminophen (Percocet 10-325 Mg) 1 tab Q4H PRN PO BREAKTHROUGH PAIN 09/11/16 15:15 09/17/16 19:38 Apixaban (Eliquis) 10 mg BID PO 09/12/16 21:00 09/19/16 09:01 09/18/16 08:24 Lactulose (Lactulose Liq) 30 ml DAILY PRN PO constipation 09/14/16 09:00 09/14/16 13:55 Allopurinol (Zyloprim) 300 mg DAILY PO 09/16/16 09:00 09/18/16 08:24 Metformin HCl (Glucophage) 500 mg BIDPC PO 09/16/16 18:00 09/18/16 08:24 Amlodipine Besylate (Norvasc) 5 mg DAILY PO 09/16/16 21:00 09/18/16 08:24 Colchicine (Colchicine) 0.6 mg BID PO 09/17/16 11:30 09/18/16 08:24 Physical Exam General General Appearance: Well Developed, Well Nourished, No Acute Distress, Comfortable Eyes Eye Exam: Pupils Equal, Pupils Reactive Ears & Nose Ears & Nose Exam: Nasal Mucosa [place] Throat Throat Exam: Oral Mucosa [place] & Moist Neck Neck Exam: Neck Supple, Trachea Midline Pulmonary Resp Exam: Clear Bilaterally, No Distress Cardiology CV Exam: Regular, Good Perfusion Gastrointestinal/Abdomen GI Exam: Non-Tender, Bowel Sounds Present, Distended (nondistended) GI Remarks Healing abdominal wounds, mid incision with dressing clean dry and intact Musculoskeletal MS Exam: Joints Intact MS Remarks gout, rt. ankle Integumentary Skin Exam: Warm, Dry Extremeties Extremities Exam: No Edema, Pedal Pulses Palpable Neurologic Neuro Exam: Alert, Awake, Oriented, Speech Clear, Moving All Extremities, No Focal Deficits Psychiatric Psych Exam: Appropriate Responses VTE Prophylaxis VTE Prophylaxis Meds: Heparin Assessment/Plan Problem List: (1) Sepsis (2) Pancreatitis (3) Portal vein thrombosis (4) Postoperative fever (5) Diabetes 1.5, managed as type 2 (6) HTN (hypertension) (7) GERD (gastroesophageal reflux disease) (8) Hypokalemia (9) s/p ERCP and stent placement and lap cady l Assessment/Plan Vital signs ,normal trends Labs reviewed, BS monitoring, elevation secondary to steroids . Back on PO hypoglycemics S/P ERCP and stent placement and recent lap cady, presented with fever and abd. tenderness Surgery following, input appreciated, cultures are negative Very minimal small wound at the umbilicus, healing, surgery team discussed with patient doing dressing changes at home. He will take care of himself Does not need home health patient states portal vein thrombosis, on Eliquis hematology following , plan for 3 months of therapy Rt. ankle gout, improved after steroids, able to weight-bear Continue as outpatient medical management Diabetes mellitus type 2, uncontrolled Accu-Cheks before meals and at bedtime sliding scale, increased sliding scale to moderate, IV steroids and use Patient with discharge today taking his routine by mouth meds and follow-up with PCP. Discussion was to monitor his Accu-Cheks Discharge planning today, okay with surgeon will follow-up as outpatient Patient requesting medical release to go back to work Friday. Dr. Morrison will see before discharge Patient seen on his behalf, stable for release Problem Qualifiers (1) Sepsis: Qualified Code: A41.9 - Sepsis, due to unspecified organism (2) Pancreatitis: Qualified Code: K85.90 - Acute pancreatitis, unspecified complication status, unspecified pancreatitis type (3) HTN (hypertension): Qualified Code: I10 - Essential hypertension (4) GERD (gastroesophageal reflux disease): Qualified Code: K21.9 - Gastroesophageal reflux disease, esophagitis presence not specified Priscilla Mullen September 18, 2016 10:53
[2016-09-18] MEDS ORDERED: APIX5TAB PO (11:00)
[2016-09-18 12:00] VITALS: BP 134/81; PULSE 78; RESP 18; TEMP 97.5; O2SAT 100
[2016-09-18] MEDS ORDERED: NORC5TAB PO (12:11)
[2016-09-18] MEDS ORDERED: COLC1TAB15 PO (12:11)
--- NOTE | 2016-09-18 17:39 | HHI.DS ---
Discharge Summary Admission Date September 10, 2016 at 06:38 Discharge Date: September 18, 2016 Admitting Diagnosis Fever post op, Pancreatitis Brief History This was a pleasant 55 year-old white male who was recently in [facility] on September 02 through September 06 with abdominal pain. He was found to have acute cholecystitis and underwent an ERCP and a laparoscopic cholecystectomy. The patient's BRIAN drain was removed prior to discharge on September 06. He went home with his postop instructions. The patient had a minimal appetite, but stated that has been picking up. He also had some gas and some bloating, but that also seems to wax and wane. Yesterday the patient noted some increased right and mid quadrant pain after he ate. The patient went and laid down to rest. He stated that the pain was sharp with a stabbing sensation and lasted approximately 30 minutes. The patient also had noted a low grade fever during the evening and called and spoke to someone at the hospital for advise. He was told to take a leave to see if it would relieve his symptoms. The patient was awoken last night with a temperature of 102.9. He was brought to the emergency room per his fiance for further evaluation. The patient denied any chest pain, shortness of breath or headache. No vomiting, but he has had some symptoms of nausea off and on. The patient's bowels have moved twice since September 06. He is positive for some gas and bloating. He also stated that it hurt to take a deep breath in his right upper quadrant. The patient denied any productive cough. Small incisions on his abdomen are closed intact. He did have some very mild minimal erythema noted on the large central incision and a very minimal amount on one of the right upper quadrant incisions. CBC/BMP: 09/17/16 0700 09/16/16 0614 Significant Findings Laboratory Tests Test 09/16/16 09/17/16 06:14 07:00 Red Blood Count 3.35 MIL/MM3 3.34 MIL/MM3 (4.50-5.90) (4.50-5.90) Hemoglobin 9.1 GM/DL 8.8 GM/DL (13.0-17.0) (13.0-17.0) Hematocrit 27.2 % 27.1 % (39.0-51.0) (39.0-51.0) Sodium Level 133 MEQ/L (136-145) Chloride Level 96 MEQ/L (98-107) Blood Urea Nitrogen 4 MG/DL (7-18) Estimat Glomerular Filtration 84 ML/MIN (>89) Rate Random Glucose 312 MG/DL (74-106) Mean Corpuscular Hemoglobin 26.3 PG (27.0-34.0) Imaging Last Impressions Chest X-Ray 09/10/16517 Signed Impressions: Service Date/Time: Saturday, September 10, 2016 05:32 - CONCLUSION: 1. No acute cardiopulmonary disease. 2. Hiatal hernia. Shane Kennedy Jr., MD Abdomen/Pelvis CT 09/10/16517 Signed Impressions: Service Date/Time: Saturday, September 10, 2016 06:17 - CONCLUSION: 1. There is a 5.7 x 2.5 cm collection involving the gallbladder fossa. This is a mixture of air and fluid but predominantly air. 2. Mild intrahepatic ductal dilatation involving the left lobe of the liver. 3. Left-sided hydrocele partially seen. 4. Small volume ascites. 5. Small bilateral pleural effusions. Shnae Kennedy Jr., MD Cholangiopancreatography MRI 09/10/16 0000 Signed Impressions: Service Date/Time: Saturday, September 10, 2016 13:15 - CONCLUSION: 1. Left portal vein thrombosis. 2. Intrahepatic and extrahepatic biliary ducts within normal limits in diameter. 3. Gas and fluid again seen in the gallbladder fossa. Status post cholecystectomy. Ryan Kim MD PE at Discharge General General Appearance: Well Developed, Well Nourished, No Acute Distress, Comfortable Eyes Eye Exam: Pupils Equal, Pupils Reactive Ears & Nose Ears & Nose Exam: Nasal Mucosa [place] Throat Throat Exam: Oral Mucosa [place] & Moist Neck Neck Exam: Neck Supple, Trachea Midline Pulmonary Resp Exam: Clear Bilaterally, No Distress Cardiology CV Exam: Regular, Good Perfusion Gastrointestinal/Abdomen GI Exam: Non-Tender, Bowel Sounds Present, Distended (nondistended) GI Remarks Healing abdominal wounds, mid incision with dressing clean dry and intact Musculoskeletal MS Exam: Joints Intact MS Remarks gout, rt. ankle Integumentary Skin Exam: Warm, Dry Extremeties Extremities Exam: No Edema, Pedal Pulses Palpable Neurologic Neuro Exam: Alert, Awake, Oriented, Speech Clear, Moving All Extremities, No Focal Deficits Psychiatric Psych Exam: Appropriate Responses VTE Prophylaxis VTE Prophylaxis Meds: Heparin Hospital Course These are the diagnoses that were used to treat this patient during his hospital stay. (1) Sepsis (2) Pancreatitis (3) Portal vein thrombosis (4) Postoperative fever (5) Diabetes 1.5, managed as type 2 (6) HTN (hypertension) (7) GERD (gastroesophageal reflux disease) (8) Hypokalemia (9) s/p ERCP and stent placement and lap cady l Vital signs were monitored every 4 hours daily for trends . Patient was monitored especially for fever , otherwise most of the time he had normal trends Labs reviewed, Blood sugars and Accu-Cheks were monitored throughout hospital stay. Patient had elevated blood sugars mostly due to current infection, and also been taken off of his oral hypoglycemics initially. Patient was also given steroids for his gout, this caused hyperglycemia especially the last few days of his admission. Patient's blood sugar scale was increased based on his blood sugars. The last 2-3 days before discharge patient was able to be placed back on his oral hypoglycemics. S/P ERCP and stent placement and recent lap cady, presented with fever and abd. tenderness Surgery following, input appreciated, cultures are negative that were done originally Patient had umbilicus wound and one other incision that had erythema on admission. Wound care and surgeon monitored these wounds and dressings throughout his hospital stay. He was also On IV antibiotics for the infection Day of discharge patient had Very minimal small wound at the umbilicus, healing , surgery team discussed with patient doing dressing changes at home. He will take care of himself Does not need home health patient states. On discharge. After the first 24 hours of testing patient was diagnosed with portal vein thrombosis, he was followed per hematology consult and placed on Eliquis for 3 months. Patient was instructed to monitor for any bleeding episodes follow-up with his PCP and the acid tester on discharge. Patient required gentle hydration with IV fluids throughout his hospital stay. hematology following , plan for 3 months of therapy Approximately 3 days before discharge patient noted pain in his Rt. ankle. gout was diagnosed and treated with medications and improved after steroids, able to weight-bear after treatment regimen. Continue as outpatient medical management Diabetes mellitus type 2, uncontrolled Accu-Cheks before meals and at bedtime sliding scale, increased sliding scale to moderate, IV steroids and use Patient with discharge today taking his routine by mouth meds and follow-up with PCP. Discussion was to monitor his Accu-Cheks Discharge planning today, okay with surgeon will follow-up as outpatient. Patient was followed by his surgeon throughout hospital stay. No further surgery was required Patient's labs were monitored activity was encouraged to be up in chair and out of bed, DVT prophylaxis and pain management was provided. Patient requesting medical release to go back to work Friday. Dr. Morrison will see before discharge Patient seen on his behalf, stable for release Pt Condition on Discharge: Stable Discharge Disposition: Discharge Home Discharge Instructions DIET: Follow Instructions for: Diabetic Diet Activities you can perform: Regular-No Restrictions Follow up Referrals: Appointment for Follow Up Oncology - 3 Weeks with STAR MELENDEZ PCP Follow-up Surgical - 2 Weeks New Medications: Apixaban (Eliquis) 5 Mg Tab 5 MG PO BID PRN Prevent Blood Clot #60 CAP Colchicine (Colchicine) 0.6 Mg Tab 0.6 MG PO BID gout #12 TAB Continued Medications: Allopurinol (Allopurinol) 300 Mg Tab 300 MG PO DAILY Gout #30 Ref 0 TAB Amlodipine (Amlodipine) 5 Mg Tab 5 MG PO DAILY Blood Pressure Management #30 Ref 0 TAB Hydrocodone-Acetaminophen ([place]) 5-325 mg Tab 1 TAB PO Q6H PRN PAIN #20 Ref 0 TAB (This prescription has been renewed) Lisinopril (Lisinopril) 20 Mg Tab 20 MG PO DAILY #30 Ref 0 TAB Metformin (Metformin) 500 Mg Tab 500 MG PO BIDPC With meals Blood Sugar Management #60 Ref 0 TAB Omeprazole (Omeprazole) 40 Mg Cap 40 MG PO DAILY #30 Ref 0 CAP Priscilla Mullen September 18, 2016 17:39
[2016-09-19 03:52] LABS: PHOSPHATIDYLSERINE AB IGA LESS THAN 20.0 U/mL (()); PHOSPHATIDYLSERINE AB IGM LESS THAN 25.0 U/mL (())
[2016-09-19] MEDS ORDERED: APIXABAN 5 MG TABLET PO SCH (21:00)
== END 2016-09-18 13:39 | disposition home or self-care (01) | DRG 871 ==
LOC: NEPC 04:54 → NEDA 06:38 → N05B 08:56
PROVIDERS: ADMIT Specialist; ATTEND Specialist
DX: A41.9 Sepsis, unspecified organism (principal); I81 Portal vein thrombosis; E87.2 Acidosis; K85.90 Acute pancreatitis without necrosis or infection, unspecified; E87.1 Hypo-osmolality and hyponatremia; E11.65 Type 2 diabetes mellitus with hyperglycemia; D64.9 Anemia, unspecified; I10 Essential (primary) hypertension; K21.9 Gastro-esophageal reflux disease without esophagitis; E87.6 Hypokalemia; M10.9 Gout, unspecified; K59.00 Constipation, unspecified; Z79.84 Long term (current) use of oral hypoglycemic drugs
CPT/HCPCS: 71010; 74177; 74181; 76377; 80048; 80053; 80076; 81240; 81241; 81291; 82272; 82948; 83090; 83605; 83690; 85025; 85027; 85240; 85307; 85597; 85598; 85610; 85613; 85730; 86038; 86146; 86147; 86148; 87040; 87070; 87205; 94150; 96365; 96375; C9113; J1170; J1644; J1815; J2405; J2543; J2920; J3370; J3480; J7030; J7050; Q9967

== ENCOUNTER 2016-10-13 22:47 | Emergency (ER) | payer OTHER ==
[~2016-10-13 22:47] MED LIST changes: +APIX5TAB PO; +COLC1TAB15 PO
[2016-10-13 22:48] VITALS: BP 115/75; PULSE 76; RESP 16; TEMP 98.1; O2SAT 100
== END 2016-10-13 23:18 | disposition left against medical advice (07) ==
LOC: NED 22:47
DX: R68.89 Other general symptoms and signs (principal)
CPT/HCPCS: 99281

== ENCOUNTER 2017-09-26 19:10 | Observation (INO) | payer OTHER ==
[~2017-09-26] VITALS: Ht 185.4 cm; Wt 78.6 kg
[2017-09-26 21:15] VITALS: BP 132/74; PULSE 84; RESP 20; TEMP 99.3; O2SAT 96
[2017-09-26] MEDS ORDERED: GLUCAGON 1 MG/ML VIAL OTHER PRN (22:00)
[2017-09-26] MEDS ORDERED: MAGNESIUM HYDROXIDE SUSP 30 ML CUP PO PRN (22:00)
[2017-09-26] MEDS ORDERED: MORPHINE SULFATE 2 MG/ML SYRINGE IV PUSH PRN (22:00)
[2017-09-26] MEDS ORDERED: NALOXONE HCL 0.4 MG/ML AMP IV PUSH PRN (22:00)
[2017-09-26] MEDS ORDERED: BISACODYL 10 MG SUPP RECTAL PRN (22:00)
[2017-09-26] MEDS ORDERED: SENNOSIDES 8.6 MG TAB PO PRN (22:00)
[2017-09-26] MEDS ORDERED: DEXTROSE 50% IN WATER 50 ML VIAL(D50) IV PUSH PRN (22:00)
[2017-09-26] MEDS ORDERED: ACETAMINOPHEN 325 MG TAB PO PRN (22:00)
[2017-09-26] MEDS ORDERED: SODIUM CHLORIDE 0.9% FLUSH 10 ML FLUSH IV FLUSH PRN (22:00)
[2017-09-26] MEDS ORDERED: LACTULOSE SYRUP 20 GM/30 ML CUP PO PRN (22:00)
[2017-09-26 22:16] VITALS: PULSE 103
[2017-09-27] VITALS: BP 122/77; PULSE 88; RESP 20; TEMP 98.3; O2SAT 97
--- NOTE | 2017-09-27 01:06 | RADRPT ---
EXAM DATE: 09/27/2017 12:59 AM EDT AGE/SEX: 56 years / Male INDICATIONS: Dyspnea and chest pain. Upper respiratory tract infection. CLINICAL DATA: This is the patient's initial encounter. Patient reports that signs and symptoms have been present for 1 day and indicates a pain score of 3/10. MEDICAL/SURGICAL HISTORY: Hypertension. Hiatal hernia. Diabetes mellitus type II. GERD. Ghulam endectomy. Cholecystectomy. COMPARISON: [facility], CHEST PA & LAT, 09/26/2017. . DOSE: 0.8 mCi Tc99m DTPA aerosol 8.8 mCi Tc99m MAA IV TECHNIQUE: Following five minutes of tidal breathing of DTPA aerosol, planar images of the lungs wer e performed in eight projections. The patient was then injected with MAA, and eight-view perfusion s can was performed. FINDINGS: Comparison radiographs show no infiltrate, effusion or pneumothorax. There is a homogeneous pattern of aerosol delivery to the periphery of both lungs. No focal ventilat ory defects are seen. The perfusion lung scan demonstrates a homogenous pattern of uptake in both lungs. No segmental or s ubsegmental defects are seen. CONCLUSION: Homogeneous perfusion. Study is low probability for pulmonary embolus. Electronically signed by: Robby Tavares MD 09/27/2017 1:05 AM EDT
[2017-09-27 03:44] LABS: TROPONIN I LESS THAN 0.02 NG/ML (0.02-0.05)
[2017-09-27 04:00] VITALS: BP 129/79; PULSE 83; RESP 20; TEMP 97.6; O2SAT 97
[2017-09-27 07:12] LABS: AUTOMATED NEUTROPHIL # 7.5 TH/MM3 (1.8-7.7); BASOPHIL % 0.3 % (0.0-2.0); EOSINOPHIL % 0.4 % (0.0-4.0); HEMATOCRIT 26.3 % (39.0-51.0); LYMPH % 10.8 % (9.0-44.0); MEAN CELL VOLUME 71.1 FL (80.0-100.0); MEAN CORPUSCULAR HEMOGLOBIN 21.5 PG (27.0-34.0); MEAN CORPUSCULAR HGB CONC 30.3 % (32.0-36.0); MEAN PLATELET VOLUME 8.7 FL (7.0-11.0); MONO % 11.3 % (0.0-8.0); MONOCYTE # 1.1 TH/MM3 (0-0.9); NEUT % 77.2 % (16.0-70.0); PLATELET COUNT 248 TH/MM3 (150-450); WHITE BLOOD COUNT 9.6 TH/MM3 (4.0-11.0)
[2017-09-27 07:37] LABS: CHLORIDE 103 MEQ/L (98-107); SODIUM (NA) 137 MEQ/L (136-145)
[2017-09-27 07:43] LABS: CALCIUM 10.6 MG/DL (8.5-10.1)
[2017-09-27 07:44] LABS: BLOOD UREA NITROGEN 31 MG/DL (7-18); GLUCOSE,RANDOM 108 MG/DL (74-106)
[2017-09-27 07:47] LABS: GLOMERULAR FILTRATION RATE 77 ML/MIN (>89)
[2017-09-27 07:51] LABS: TROPONIN I LESS THAN 0.02 NG/ML (0.02-0.05)
[2017-09-27] MEDS ORDERED: INSULIN ASPART SUPPLEMENTAL SCALE SQ SCH (08:00)
--- NOTE | 2017-09-27 08:04 | HHI.HP ---
[facility] Primary [facility] Physician Unknown Admission Diagnosis Back pain, chest pain, elevated d-dimer Diagnoses: (1) Back pain Diagnosis: Principal (2) Shortness of breath Diagnosis: Principal (3) Chest pain Diagnosis: Principal Chief Complaint: Back pain, shortness of breath Travel History International Travel<30 Days: No Contact w/Intl Traveler <30 Da: No History of Present Illness Written by Alfa Penaloza, acting as scribe for Dr. Bone on 09/27/17 at 08: 03. 56-year-old male with known history of hypertension, diabetes, angina who presented to the hospital because of back pain, shortness of breath, lightheadedness, dizziness. Patient states that over the last 3 weeks he has been undergoing treatment for upper respiratory tract infection with cough, congestion, mucus production, sinus drainage, mild epistaxis. He did go and get treatment and was on antibiotics until 3-4 days ago. Patient states that a week ago he started developing pain in his lower rib area as well as pain in his back. He states that progressively got worse and became difficult to manage because it would hurt more whenever he drove as well as when he laid down. He could not get comfortable at night to sleep. Patient states that yesterday when he was at work whenever he had to pick anything up and carry it he got short of breath and thought he is going to pass out so he had to stop and put the object down. Patient had workup done in the emergency department and found to have a elevated d-dimer, azotemia and because of his symptoms the patient was recommended observation in the hospital for further evaluation and management. A VQ scan was performed which indicated low probability for pulmonary emboli. Currently the patient still having the pain where he states located in his bilateral lower rib area as well as in his mid back. He denied any nausea, vomiting, diaphoresis he states that he does get short of breath on exertion. Pain is back is worse when he lays down. The pain goes away when he is not lying flat or when he is not driving his car. Review of Systems Respiratory: COMPLAINS OF: Shortness of breath Cardiovascular: COMPLAINS OF: Chest pain Musculoskeletal: COMPLAINS OF: Muscle aches, Back pain Except as stated in HPI: all other systems reviewed are Neg Past Family Social History Past Medical History Hypertension Diabetes History of portal vein thrombosis Past Surgical History Cholecystectomy Left inguinal and umbilical hernia repair Appendectomy Reported Medications Reported Meds & Active Scripts Active Reported Metformin (Metformin HCl) 500 Mg Tab 500 Mg PO BIDPC With meals Lisinopril 20 Mg Tab 20 Mg PO DAILY Amlodipine (Amlodipine Besylate) 5 Mg Tab 5 Mg PO BID Allopurinol 300 Mg Tab 300 Mg PO DAILY Allergies: Coded Allergies: No Known Allergies (Unverified Allergy, Unknown, 09/26/17) Family History Family history was reviewed and significant for mother and father and all of his siblings with heart disease Social History Patient denies any tobacco, alcohol or illicit drug Physical Exam Vital Signs Vital Signs Date Time Temp Pulse Resp B/P (MAP) Pulse Ox O2 Delivery O2 Flow Rate FiO2 09/27/17 04:00 97.6 83 20 129/79 (96) 97 09/27/17 00:00 98.3 88 20 122/77 (92) 97 09/26/17 22:16 103 09/26/17 21:15 99.3 84 20 132/74 (93) 96 Physical Exam GENERAL: Well-developed, well-nourished, in no acute distress. alert and orientated HEENT: Head is normocephalic without any lesions or masses noted. Facial features are symmetric. Eyes: Pupils equal round reactive to light. Extraocular muscles are intact. Conjunctivae were clear. Oropharyngeal: Pharynx without any erythema edema. Tongue is midline without deviation. Buccal mucosa is moist without any masses or lesions NECK: Supple without any masses. Trachea midline no deviation. No JVD, no bruits are appreciated CARDIAC: Regular rhythm, regular rate. S1/S2 are heard. No murmurs gallops or rubs. LUNGS: Clear to auscultation bilaterally. No wheeze, rhonchi or rales. No use of accessory muscles on inspiration or expiration. ABDOMEN: Soft, nontender. Nondistended. Bowel sounds heard in all 4 quadrants. No organomegaly or masses. Negative rebound, negative guarding EXTREMITIES: No edema, pulses are equal bilaterally. No cyanosis or clubbing NEUROLOGY: Mood and affect appear appropriate. Cranial nerves II through XII grossly intact. Muscle strength 5/5 in upper and lower extremities bilaterally. Deep tendon reflexes are 2+ in upper and lower extremities bilaterally. MUSCULOSKELETAL: Patient does have palpable tenderness noted over the paraspinal musculature of the thoracic spine from T3 down to T5 Laboratory Laboratory Tests Test 09/27/17 03:00 09/27/17 06:28 Total Creatine Kinase 94 Troponin I LESS THAN 0.02 White Blood Count 9.6 Red Blood Count 3.70 Hemoglobin 8.0 Hematocrit 26.3 Mean Corpuscular Volume 71.1 Mean Corpuscular Hemoglobin 21.5 Mean Corpuscular Hemoglobin Concent 30.3 Red Cell Distribution Width 20.0 Platelet Count 248 Mean Platelet Volume 8.7 Neutrophils (%) (Auto) 77.2 Lymphocytes (%) (Auto) 10.8 Monocytes (%) (Auto) 11.3 Eosinophils (%) (Auto) 0.4 Basophils (%) (Auto) 0.3 Neutrophils # (Auto) 7.5 Lymphocytes # (Auto) 1.0 Monocytes # (Auto) 1.1 Eosinophils # (Auto) 0.0 Basophils # (Auto) 0.0 CBC Comment AUTO DIFF Blood Urea Nitrogen 31 Creatinine 1.00 Random Glucose 108 Calcium Level 10.6 Sodium Level 137 Potassium Level 4.4 Chloride Level 103 Carbon Dioxide Level 23.0 Anion Gap 11 Estimat Glomerular Filtration Rate 77 Result Diagram: 09/27/1728 09/27/17627 Imaging Last Impressions Lung Scan-VQ Nuclear Medicine 09/26/17 0000 Signed Impressions: CONCLUSION: Homogeneous perfusion. Study is low probability for pulmonary embol us. Caprini VTE Risk Assessment Caprini VTE Risk Assessment: Mod/High Risk (score >= 2) Caprini Risk Assessment Model Point Value = 1 Point Value = 2 Point Value = 3 Point Value = 5 Age 41-60 Minor surgery BMI > 25 kg/m2 Swollen legs Varicose veins or History of unexplained or recurrent spontaneous Oral contraceptives or hormone replacement Sepsis (< 1 month) Serious lung disease, including pneumonia (< 1 month) Abnormal pulmonary function Acute myocardial infarction Congestive heart failure (< 1 month) History of inflammatory bowel disease Medical patient at bed rest Age 61-74 Arthroscopic surgery Major open surgery (> 45 min) Laparoscopic surgery (> 45 min) Malignancy Confined to bed (> 72 hours) Immobilizing plaster cast Central venous access Age >= 75 History of VTE Family history of VTE Factor V Leiden Prothrombin [id number] Lupus anticoagulant Anticardiolipin antibodies Elevated serum homocysteine Heparin-induced thrombocytopenia Other congenital or acquired thrombophilia Stroke (< 1 month) Elective arthroplasty Hip, pelvis, or leg fracture Acute spinal cord injury (< 1 month) Prophylaxis Regimen Total Risk Factor Score Risk Level Prophylaxis Regimen 0-1 Low Early ambulation 2 Moderate Order ONE of the following: *Sequential Compression Device (SCD) *Heparin 5000 units SQ BID 3-4 Higher Order ONE of the following medications: *Heparin 5000 units SQ TID *Enoxaparin/Lovenox 40 mg SQ daily (WT < 150 kg, CrCl > 30 mL/min) *Enoxaparin/Lovenox 30 mg SQ daily (WT < 150 kg, CrCl > 10-29 mL/min) *Enoxaparin/Lovenox 30 mg SQ BID (WT < 150 kg, CrCl > 30 mL/min) AND/OR *Sequential Compression Device (SCD) 5 or more Highest Order ONE of the following medications: *Heparin 5000 units SQ TID (Preferred with Epidurals) *Enoxaparin/Lovenox 40 mg SQ daily (WT < 150 kg, CrCl > 30 mL/min) *Enoxaparin/Lovenox 30 mg SQ daily (WT < 150 kg, CrCl > 10-29 mL/min) *Enoxaparin/Lovenox 30 mg SQ BID (WT < 150 kg, CrCl > 30 mL/min) AND *Sequential Compression Device (SCD) Assessment and Plan Problem List: (1) Chest pain ICD Code: R07.9 - Chest pain, unspecified Assessment and Plan 56-year-old male who presented the hospital because of the lower rib/ chest pain and muscle skeletal pain in the back. Chest pain, atypical -Patient does have increased risk factors to include age, male, hypertension, diabetes, family history of heart disease -Patient has been ruled out for acute coronary event with serial cardiac enzymes that have remained negative -Chest x-ray unremarkable, VQ scan indicated low probability for pulmonary emboli -EKG indicated sinus rhythm without any acute changes -Exercise stress test was performed and indicated no signs of ischemia -We will give Toradol 30 mg IV 1 now and evaluate for pain Azotemia -Likely secondary to mild dehydration -Renal functions have improved with IV fluid Hypertension -Home medication will be continued Diabetes -We will start diabetic diet after stress testing -Accu-Cheks with sliding scale insulin DVT prevention -Sequential compression devices Discharge disposition Discharge home in stable condition Activity: Ad nik. Diet: Diabetic diet Medication per medication reconciliation Follow-up with primary medical doctor in 1 week This note was transcribed by lorenzo Penaloza. I, Dr. Farshad Bone personally performed the history, physical exam, and medical decision making; and confirmed the accuracy of the information in the transcribed note. Authenticated by Dr. Farshad Bone on 09/27/17 at 08:03. Code Status Full code Discussed Condition With Patient Alfa Penaloza September 27, 2017 08:04 Farshad Bone MD September 27, 2017 08:04
[2017-09-27] MEDS ORDERED: KETOROLAC TROMETHAMINE 30 MG/ML (IVP) VIAL IV PUSH ONE (08:15)
[2017-09-27] MEDS ORDERED: ALLOPURINOL 300 MG TAB PO SCH (09:00)
[2017-09-27] MEDS ORDERED: amLODIPine BESYLATE 5 MG TAB PO SCH (09:00)
[2017-09-27] MEDS ORDERED: SODIUM CHLORIDE 0.9% FLUSH 10 ML FLUSH IV FLUSH SCH (09:00)
[2017-09-27] MEDS ORDERED: LISINOPRIL 20 MG TAB PO SCH (09:00)
--- NOTE | 2017-09-27 10:06 | HHI.DCPOC ---
Discharge Care Plan Diagnosis: (1) Chest pain (2) Back pain (3) Shortness of breath Goals to Promote Your Health * To prevent worsening of your condition and complications * To maintain your health at the optimal level Directions to Meet Your Goals Take your medications as prescribed Follow your dietary instruction Follow activity as directed Keep your appointments as scheduled Take your immunizations and boosters as scheduled If your symptoms worsen call your PCP, if no PCP go to Urgent Care Center or Emergency Room Smoking is Dangerous to Your Health. Avoid second hand smoke Call the 24-hour hour crisis hotline for domestic abuse at Alfa Penaloza September 27, 2017 10:06
--- NOTE | 2017-09-27 10:14 | TR ---
Date Performed: 09/27/2017 Time Performed: 09:46:46 DOCTOR: Tino Hurt DRUG LIST: CLINICAL HISTORY: CHEST PAIN REASON FOR TEST: REASON FOR ENDING: Completed Protocol OBSERVATION: Arrhythmia: None Chest Pain: None CONCLUSION: Patient tolerated GUADALUPE protocol with Total Exercise Time=6:40 Maximum NX=879 % Max HR Achieved=87.0% Maximum EH=012/80, Testing stopped secondary to goals acheived. Patient asymptomati c during testing. During peak exercise, upsloping ST segments, no significant ST depression, HR and B P appropriate response to exercise, Recovery period, HR and BP returned to baseline COMMENTS: Conclusion: Normal treadmill exercise. No evidence of ischemia.
[2017-09-27 12:04] VITALS: BP 100/68; PULSE 88; RESP 16; TEMP 97.9; O2SAT 97
[2017-09-27] MEDS ORDERED: IBUP1TAB5 PO (13:19)
--- NOTE | 2017-09-27 15:38 | EKG ---
Date Performed: 09/27/2017 Time Performed: 08:45:07 PTAGE: 56 years EKG: Sinus rhythm WITH PACs WITH ABERRANT CONDUCTION THERE IS SOME SINUS ARRHYTHMIA WELL RIGHT VENTRICULAR CONDUCTI ON DISTURBANCE LEFT AXIS DEVIATION ABNORMAL ECG Compared to PREVIOUS TRACING , the aberrantcly conducted PACs are new. PREVIOUS TRACIN09/02/2016 1 4.45 DOCTOR: Tino Hurt Interpretating Date/Time 09/27/2017 15:38:12
== END 2017-09-27 13:25 | disposition home or self-care (01) ==
LOC: NEDDLT 21:10 → PH3B 21:20
PROVIDERS: ADMIT Hospitalist; ATTEND Hospitalist
DX: R07.89 Other chest pain (principal); R79.1 Abnormal coagulation profile; M54.9 Dorsalgia, unspecified; R06.02 Shortness of breath; E86.0 Dehydration; I10 Essential (primary) hypertension; E11.9 Type 2 diabetes mellitus without complications; I20.9 Angina pectoris, unspecified; R79.89 Other specified abnormal findings of blood chemistry; Z86.718 Personal history of other venous thrombosis and embolism; Z82.49 Family history of ischemic heart disease and other diseases of the circulatory system
CPT/HCPCS: 71046; 78582; 80048; 80053; 81001; 82550; 82948; 83690; 83880; 84484; 85025; 85379; 93005; 93017; 96374; 96376; 99285; A9540; A9567; G0378; J1885

== ENCOUNTER 2017-10-25 11:54 | Inpatient (IN) ==
[2017-11-02] MEDS ORDERED: Baclofen 10 MG Tablet PO PRN (00:01)
== END 2017-11-01 13:21 | disposition home or self-care (01) ==
LOC: HCIN 18:25
PROVIDERS: ADMIT Internal Medicine; ATTEND Internal Medicine